=== PATIENT | female | born 1950 | race Caucasian/White ===

== ENCOUNTER 2017-10-16 18:15 | Emergency (ER) | payer MEDICARE, OTHER, SELFPAY | END 2017-10-16 20:42 | disposition home or self-care (01) | PROVIDERS: Emergency Provider Nurse Practitioner Family; Visit Provider Nurse Practitioner Family | DX: J09.X2 Influenza due to identified novel influenza A virus with other respiratory manifestations (principal); F17.210 Nicotine dependence, cigarettes, uncomplicated; I10 Essential (primary) hypertension; Z79.899 Other long term (current) drug therapy | CPT/HCPCS: 87804; 99201 ==

== ENCOUNTER 2017-10-22 20:29 | Observation (INO) | payer MEDICARE, OTHER, SELFPAY | END 2017-10-24 17:50 | disposition home or self-care (01) | PROVIDERS: Admitting Provider Emergency Medicine; Emergency Provider Emergency Medicine; Family Provider Nurse Practitioner Family; Visit Provider Family Medicine | DX: J18.9 Pneumonia, unspecified organism (principal); Z72.0 Tobacco use; E87.6 Hypokalemia | CPT/HCPCS: 36415; 71010; 80048; 80053; 82550; 82553; 83605; 84484; 85025; 86738; 87040; 87486; 87581; 87633; 87798; 93005; 93041; 94640; 94760; 96365; 96367; 96375; 99285; G0378; J0456; J1956 ==

== ENCOUNTER → 2018-04-25 08:28 | Outpatient (CLI) | payer MEDICARE, OTHER, SELFPAY ==
[2018-04-25 08:49] LABS: Blood Urea Nitrogen 17 mg/dL (7-18); Creatinine,Serum 1.09 mg/dL (0.55-1.02); Estimated Glomerular Filt Rate 50 ml/min (>60); GFR (African American) 60 ML/MIN (>60)
--- NOTE | 2018-04-25 09:04 | MR_ITS ---
MR head/brain wo/w con Ordering Physician: Laurel Cooney Patient Age: 68 years: Female HISTORY: ITS.REASON: BASILAR ARTERY ANEURYSM Weakness. Cannot walk at times. Dizzy 2 months. Patient States that had aneurysm in head, neck and abdomen : PROCEDURE. Standard Pre and postcontrast MR brain Precontrast Multiplanar FLAIR, T1, T2 weighted images along with axial diffusion/ADC imaging performed on 1.5 T. Siemens, MRI. Postcontrast imaging [id number] ProHance T1-weighted images axial & coronal plane performed COMPARISON :None relevant FINDINGS Prominent, Numerous high signal foci are seen throughout the deep white matter both periventricular and subcortical. These show no enhancement and & compatible with extensive chronic small vessel deep white matter ischemic/gliotic changes. Commonly seen in aging brain but are more extensive and pronounced than typically seen in this patient. Minimal signal central yuni likely reflecting same process.Posterior fossa otherwise with no additional findings., CP angles are clear . Cerebellum appear satisfactoryCranial cervical junction is normal. Mastoid air cells are well-developed and fairly clear with no significant findings. IACs unremarkable No abnormal areas of enhancement. No mass lesion nor mass effect. No extra-axial or subdural collections. Overall cerebral atrophy age-.. . Sella is normal. The ventricles and basal cisterns appear normal for age. This is a standard MR brain which provides only overview of the [place] & vascular structures. No MRA ordered. Today's images reveal No obvious aneurysm is seen at the [place] on the submitted images. The patient does have ectatic vessels most evident at carotid siphon and less evident at basilar artery., But No focal aneurysm these standard MR brain survey. MRA or CTA of [place] provides the best resolution and detail to evaluate these vascular elements if excluding aneurysms remains a primary desire. Left maxillary sinus, moderate mucosal thickening with what may be an air-fluid level. IMPRESSION...... Prominent, extensive chronic small vessel white matter ischemic gliotic changes throughout the cerebral hemisphere. No territorial infarct. No mass lesions Cerebral atrophy age-appropriate . Today's standard MR brain images show ectatic vessels, but no obvious aneurysm at [place].. Would recommend MRA or CTA for greater detail evaluation more optimal evaluation of of vascular elements, if continued desire to further exclude aneurysm here.
--- NOTE | 2018-04-25 10:58 | HMH.ITSHM ---
POTASSIUM CL ER 20MG CARVEDILOL 3125MG CHLORTHQLIDONE 50MG OXCARBAZEDINE 300MG AMLODIPINE BESYLATE 10MG GABAPENTIN 100MG IBUPROPEN
--- NOTE | 2018-04-25 11:16 | CI_ITS ---
Cerebrovascular Exam IMPRESSIONS 1. The bilateral vertebral arteries are patent with normal antegrade flow. 2. Study suggests 20% stenosis involving the right internal carotid artery. 3. Study suggests 20% stenosis involving the left internal carotid artery. History: Risk factors: Current tobacco use. Hypertension. Facial artery aneurysm, AAA Carotid duplex study. Complete study and Doppler flow study including spectral analysis, color and martell scale imaging. Height: Height: 165.1cm. Height: 65in. Weight: Weight: 50.8kg. Weight: 111.8lb. Body mass index: BMI: 18.6kg/m^2. Body surface area: BSA: 1.52m^2. Location: Vascular laboratory. Patient status: Outpatient. Tables: Arterial flow: + +--------+--------+ Location V sys V ed + +--------+--------+ Right CCA - proximal 40.6cm/s 12.2cm/s + +--------+--------+ Right CCA - distal 37.5cm/s 12.2cm/s + +--------+--------+ Right ECA 55.4cm/s -------- + +--------+--------+ Right ICA - proximal 42cm/s 15.3cm/s + +--------+--------+ Right ICA - mid 47.1cm/s 16.1cm/s + +--------+--------+ Right ICA - distal 82.9cm/s 31cm/s + +--------+--------+ Right vertebral 71.1cm/s -------- + +--------+--------+ Left CCA - proximal 46cm/s 14.1cm/s + +--------+--------+ Left CCA - distal 44.8cm/s 14.1cm/s + +--------+--------+ Left ECA 64cm/s -------- + +--------+--------+ Left ICA - proximal 46.7cm/s 16.9cm/s + +--------+--------+ Left ICA - mid 64.4cm/s 22.4cm/s + +--------+--------+ Left ICA - distal 57.7cm/s 22.8cm/s + +--------+--------+ Left vertebral 33.8cm/s -------- + +--------+--------+ Velocity ratios: + + + + + + Right, V sys Right, V ed Left, V sys Left, V ed + + + + + + Max ICA/dist CCA 2.21 2.54 1.44 1.62 + + + + + + (Report amended ) Electronically signed by: Blas Castellon [id number]
--- NOTE | 2018-04-25 11:49 | CT_ITS ---
CT angio abdomen CT abdominal and pelvic aorta Ordering Physician: Laurel Cooney Patient Age: 68 years: Female HISTORY: ITS.REASON: CHEST PAIN, AAA TECHNIQUE: Helical CT scanning performed abdomen and pelvis to evaluate aorta following 100 cc Isovue-370 IV contrast. No oral contrast utilized. Axial sagittal and coronal reconstructions performed on CT workstation. . Timing of contrast was performed to maximize visualization of the aorta. All CT scans at this facility used one or more dose reduction techniques , viz: automatic exposure control, ma/Kv adjustment per patient's size, (including targeted exam where dose matched to the indication; i.e. head); or iterative reconstruction technique COMPARISON :November 2016 CT abdomen/pelvis with contrast FINDINGS Lung bases no acute finding. Heart normal size. Lower thorax. Lower thoracic aortameasures up to nearly 35 mm X 30 mm on slice 4 Abdominal aorta. Upper abdominal aorta generous in caliber and become slightly more dilated and beginning at the level of the SMA just above the renal arteries. Aorta measures 3.8 x 3.2 cm diameter at this level, Just above the renal arteries.. Circumferential intraluminal thrombus and plaque. On the 2017 study this region measured 3.2 x 2.9 cm in this does show interval enlargement. Below the level the renal arteries the aorta is slightly larger as well. It measures up to 3.2 cm diameter with crescentic plaque, terminal thrombus seen to the left of the lumen. Patent lumen remains generous. Right renal arteries Paired right renal arteries remain patent with only minimal less than 15-20 % narrowing at the origin of the dominant right renal artery. However since the previous 2017 study there is been occlusion of the left renal artery. Lack of flow here with a progressively decreased size and atrophy of the left kidney particularly towards lower pole. The hypertrophied right kidney measures up to 11 cm length the left kidney previously measured nearly 7 cm length and now measures 5.8 cm length. . Early enhancing images of liver and spleen unremarkable. Pancreas. Slight generous pancreatic duct similar to previous study... Stable .. Gallbladder unremarkable. The visualized portions of bowel with no significant findings. No no focal lesion evident. . The iliac vessels show no aneurysmal dilatation. There is generous calcified plaque at the aortic bifurcation and origin iliacs calcified plaque is seen throughout the external iliac vessels visualized. We do not visualize the groin. Prominent fairly extensive calcification just beneath skin at right and left buttocks, likely reflecting injection granulomas possibly with other old skin or subcutaneous trauma/process. ----IMPRESSION--------- 1. Progression of Aortic aneurysm.. Progressive Aneurysmal dilatation Involving suprarenal & infrarenal aorta, as well as lower thoracic aorta ... Most significant progressive suprarenal abdominal aortic aneurysm interval Occlusion of the LEFT RENAL artery. Suprarenal aortic Aneurysmal dilatation,, (beginning at the SMA & to the level the renal arteries)., has enlarged up to3.8 cm diameter maximallyX 3.2 cm. ... Infrarenal Abdominal Aorta Aneurysm has also shown mild enlargement now measuring 3.2 cm diameter .... Lower thoracic aorta with progressive aneurysmal dilatation, now measuring up to near 3.5 cm X 3 cm. ... Progressive circumferential thrombus/& plaque in these areas 2. Progressively small Shrunken left kidney since 2017, with lack of perfusion to the left kidney seen today reflecting occluded left renal artery 3.. Mild dilatation of pancreatic duct stable and unchanged since prior studies Above findings warrant vascular/cardiovascular follow-up.
== END ==
PROVIDERS: Family Provider Nurse Practitioner Family; PCP Family Medicine; Visit Provider Nurse Practitioner
DX: I72.5 Aneurysm of other precerebral arteries (principal); I71.4 Abdominal aortic aneurysm, without rupture; I10 Essential (primary) hypertension; R07.9 Chest pain, unspecified; R42 Dizziness and giddiness
CPT/HCPCS: 36415; 70553; 74175; 82565; 84520; 93880; A9576; Q9967

== ENCOUNTER → 2018-05-02 06:19 | Outpatient (CLI) | payer MEDICARE, OTHER, SELFPAY ==
--- NOTE | 2018-05-02 | NM_ITS ---
History and Indications: Hypertension, tobacco use, shortness of breath and fatigue Procedure: Patient received a 0.4 mg of Lexiscan, resting heart rate was 76 beats per resting blood pressure 191/95, with Lexiscan maximum heart rate achieved was 98 bpm is less than 85% of the maximum predicted heart rate and a blood pressure was 160/90. With Lexiscan patient complained of mild shortness of breath and malaise. Electrocardiogram: Resting electrocardiogram showed sinus rhythm nonspecific ST-T changes, with Lexiscan less than 1.[address] segment depression noted from the baseline EKG. The EKG portion of the Lexiscan Myoview is nondiagnostic. Cardiac stress and resting SPECT images: Cardiac stress and rest SPECT images were obtained using technetium 99 Myoview 31.1 mCi at stress and 11.0 mCi at rest, gated SPECT further analysis of segmental wall motion and calculation of the ejection fraction also done. Cardiac stress and the suspect show uniform myocardial activity without segmental perfusion abnormality, computer derived ejection fraction is 48% with no obvious regional wall motion abnormality, right ventricle is normal size and contractility. Conclusion: 1. The EKG portion of the Lexiscan Myoview is nondiagnostic. 2. No obvious scintigraphic evidence of reversible ischemia seen, either derived ejection fraction is 48% no regional wall motion abnormality, right ventricle is normal size and contractility.
--- NOTE | 2018-05-02 09:51 | HMH.ITSHM ---
carvedilol chlothalidone gabapentin oxcarbazepine amlodipine potassium
== END ==
PROVIDERS: Family Provider Nurse Practitioner Family; PCP Family Medicine; Visit Provider Nurse Practitioner
DX: R07.9 Chest pain, unspecified (principal); I10 Essential (primary) hypertension
CPT/HCPCS: 78452; 93017; A9502; J2785

== ENCOUNTER 2018-08-01 10:00 | Outpatient (RCR) | payer MEDICARE, OTHER, SELFPAY | END 2018-08-01 10:01 | disposition home or self-care (01) | LOC: OT 10:00 | PROVIDERS: Family Provider Nurse Practitioner Family; PCP Family Medicine; Visit Provider Physical Medicine & Rehabilitation | DX: I63.8 Other cerebral infarction (principal) | CPT/HCPCS: 97110; 97112; 97140; 97166 ==

== ENCOUNTER 2018-08-05 13:00 | Outpatient (RCR) | payer MEDICARE, OTHER, SELFPAY | END 2018-08-05 13:01 | disposition home or self-care (01) | LOC: PT 13:00 | PROVIDERS: Family Provider Nurse Practitioner Family; PCP Family Medicine; Visit Provider Physical Medicine & Rehabilitation | DX: I63.9 Cerebral infarction, unspecified (principal) | CPT/HCPCS: 97110; 97112; 97116; 97163 ==

== ENCOUNTER 2018-12-04 14:00 | Outpatient (RCR) | payer MEDICARE, OTHER, SELFPAY | END 2018-12-04 14:05 | disposition home or self-care (01) | LOC: PT 14:00 | PROVIDERS: Visit Provider Physician Assistant Medical | DX: S32.000A Wedge compression fracture of unspecified lumbar vertebra, initial encounter for closed fracture (principal) | CPT/HCPCS: 97110; 97112; 97163; 97164 ==

== ENCOUNTER → 2018-12-09 11:18 | Outpatient (CLI) | payer MEDICARE, OTHER, SELFPAY ==
--- NOTE | 2018-12-09 11:29 | XR_ITS ---
XR chest 2V HISTORY: Shortness of air, weakness, current smoker ITS.REASON: WEAKNESS ORDERING PHYSICIAN: Morenita Browne MD PATIENT AGE: 68 years COMPARISON: 06/19/2018 FINDINGS: Unremarkable cardiovascular structures. Emphysema/COPD with hyperinflation. Biapical bulla are noted. Old granulomatous disease. No lobar consolidation or collapse. There is tortuosity of the descending thoracic aorta. There is moderate anterior wedging of L2 which have a similar appearance on a previous CT scan of 06/19/2018. IMPRESSION: COPD/emphysema with biapical blebs and old granulomatous disease. No acute finding
== END ==
PROVIDERS: PCP Family Medicine; Visit Provider Family Medicine
DX: R53.1 Weakness (principal)
CPT/HCPCS: 71046

== ENCOUNTER 2018-12-24 14:00 | Outpatient (RCR) | payer MEDICARE, OTHER, SELFPAY | END 2018-12-24 14:05 | disposition home or self-care (01) | LOC: OT 14:00 | PROVIDERS: Visit Provider Family Medicine | DX: I63.9 Cerebral infarction, unspecified (principal) | CPT/HCPCS: 97014; 97110; 97112; 97140; 97164; 97166; G0283 ==

== ENCOUNTER → 2019-01-12 09:26 | Outpatient (CLI) | payer MEDICARE, OTHER, SELFPAY ==
--- NOTE | 2019-01-12 | CA_ITS ---
PROCEDURE: 2-D M-mode and color Doppler study INDICATIONS FOR THE TEST: Chest pain COPD Heart Murmur Tobacco SmokingX Palpitations FatigueX Syncope Edema HypertensionXDiabetes Mellitus Rheumatic Fever SOBXDOEXObesity Hyperlipidemia Family History HD Additional History PATIENT INFORMATION HEIGHT: 66 WEIGHT:112 GENDER: Female B/P:130/70 2-D/M-MODE INTERPRETATION: 2-D MEASUREMENTS OBSERVED VALUES IN CMS Right Ventricular Dimension (RVDd) 2.1 Interventricular Septum (Thickness)(IVsd) .9 Left Ventricular Internal Dimensions(LVIDd) 4.8 Left Ventricular Posterior Wall (Thickness)(LVPWd) .9 Aortic Root 3.0 Aortic Cusp Separation 1.1 Left Atrial Dimensions (LAD) 2.6 2D 1. Left atrium is mildly enlarged, left ventricle is normal size, mild concentric left ventricular hypertrophy, visually estimated ejection fraction approximately 50%, there is moderate hypokinesis involving the inferobasal and posterobasal wall. 2. The right atrium and right ventricle are normal size and contractility. 3. The aortic valve, leaflet continue to display mobility. 4. The mitral and tricuspid valve leaflets are minimally thickened . 5. The pulmonic valve is poorly visualized. 6. No significant pericardial effusion noted. DOPPLER INTERROGATION: Doppler interrogation of the aortic, mitral and tricuspid valvular presence of mild mitral and tricuspid regurgitation, tricuspid regurgitation jet velocity is inadequate for calculation of the right ventricular systolic pressure, grade 1 diastolic dysfunction seen without tissue Doppler evidence of raised left atrial pressure. CONCLUSION: 1. Mildly enlarged left atrium, normal left ventricular size, mild concentric left ventricular hypertrophy, visually estimated ejection fraction of 50% with segmental wall motion abnormality described above, grade 1 diastolic dysfunction seen without tissue Doppler evidence of raised left atrial pressure. 2. Mild mitral and tricuspid regurgitation 3. No significant pericardial effusion noted.
--- NOTE | 2019-01-12 09:31 | US_ITS ---
US abd. aorta screening HISTORY: Follow-up of abdominal aortic aneurysm ITS.REASON: AORTIC ANEURYSN W/O RUPTURE ORDERING PHYSICIAN: Matthew Medina PATIENT AGE: 68 years Comparison: 04/25/2018 FINDINGS: Maximum AP dimension is approximately 3.3 cm in maximum transverse dimension also 3.3 cm. There is intramural thrombus noted. Proximal common iliacs are unremarkable. IMPRESSION: 3.3 cm lower abdominal aortic aneurysm with mural thrombus. The measurements are not significant change from previous CT scan of 04/25/2018.
== END ==
PROVIDERS: PCP Family Medicine; Referring Provider Internal Medicine Cardiovascular Disease; Visit Provider Internal Medicine Cardiovascular Disease
DX: R06.09 Other forms of dyspnea (principal); I71.9 Aortic aneurysm of unspecified site, without rupture
CPT/HCPCS: 76705; 93306

== ENCOUNTER 2019-02-20 14:00 | Outpatient (RCR) | payer MEDICARE, OTHER, SELFPAY | END 2019-02-20 14:05 | disposition home or self-care (01) | LOC: OT 14:00 | PROVIDERS: Visit Provider Psychiatry & Neurology Neurology | DX: I69.398 Other sequelae of cerebral infarction (principal); G90.8 Other disorders of autonomic nervous system | CPT/HCPCS: 97018; 97140; 97166 ==

== ENCOUNTER → 2019-08-18 14:14 | Outpatient (CLI) | payer MEDICARE, OTHER, SELFPAY ==
--- NOTE | 2019-08-18 14:22 | XR_ITS ---
PROCEDURE: XR LUMBAR SPINE MIN 4V CLINICAL INDICATION: BACK PAIN Low back pain COMPARISON: LS5 LUMBAR SPINE 5 VIEWS from 06/01/[address] lumbar spine wo con from 06/19/2018 FINDINGS: Minimal lumbar curvature convex left. There is diffuse soft tissue calcification along the iliac region on both sides. There is mild wedging of L3 and moderate wedging of L2. These findings were present on the previous CT scan of 06/19/2018. There is mild kyphosis at the L1-L2 junction. No obvious acute fracture or dislocation. There is an oval area of calcification along the sacrum on the right which is within the soft tissues posteriorly. IMPRESSION: 1. No acute fracture. 2. Old wedge compression changes of L2 and L3. Dictated by: Ortiz Lucero MD 08/18/2019 16:08 Electronically signed by Ortiz Lucero MD in [facility] 08/18/2019 16:08
== END ==
PROVIDERS: PCP Family Medicine; Visit Provider Family Medicine
DX: M54.9 Dorsalgia, unspecified (principal); M54.5 Low back pain
CPT/HCPCS: 72110

== ENCOUNTER → 2019-12-23 13:26 | Outpatient (CLI) | payer MEDICARE, OTHER, SELFPAY ==
--- NOTE | 2019-12-23 13:30 | CA_ITS ---
APPROVED REPORT [employer] Director: Elena Bustos RDCS Laterality: Bilateral Study Quality: Good Indications: DIZZINESS,CVA,HTN,HLP Doppler Spectral Velocity Analysis dICA (R) 56.50/15.00 cm/s dICA (L) 53.30/20.10 cm/s Guevara (R) 56.80/17.80 cm/s Guevara (L) 34.90/11.80 cm/s pICA (R) 24.10/7.60 cm/s pICA (L) 43.50/11.90 cm/s dCCA (R) 35.50/9.40 cm/s dCCA (L) 42.50/13.00 cm/s pCCA (R) 39.50/12.00 cm/s pCCA (L) 38.50/10.90 cm/s Vert (R) 62.60/12.50 cm/s Vert (L) 45.20/10.30 cm/s ICA/CCA 1.60 ICA/CCA 1.30 Findings Duplex evaluation demonstrates stenosis of the right proximal internal carotid artery <20% with PSV <140 cm/sec, EDV <100 cm/sec, and IC/CC Ratio <4.0.Duplex evaluation demonstrates stenosis of the left proximal internal carotid artery <20% with PSV <140 cm/sec, EDV <100 cm/sec, and IC/CC Ratio <4.0.Antegrade flow seen bilateral vertebral arteries. No significant change from exam of 04/25/18 Conclusion Duplex evaluation demonstrates stenosis of the right proximal internal carotid artery <20% with PSV <140 cm/sec, EDV <100 cm/sec, and IC/CC Ratio <4.0.Duplex evaluation demonstrates stenosis of the left proximal internal carotid artery <20% with PSV <140 cm/sec, EDV <100 cm/sec, and IC/CC Ratio <4.0.Antegrade flow seen bilateral vertebral arteries. No significant change from exam of 04/25/18 Electronically signed by : Skip Hinkle, 12/23/2019 19:13:44
== END ==
PROVIDERS: PCP Family Medicine; Visit Provider Family Medicine
DX: R42 Dizziness and giddiness (principal)
CPT/HCPCS: 93880

== ENCOUNTER 2020-12-01 17:25 | Observation (INO) | payer MEDICARE, OTHER, SELFPAY ==
[2020-12-01 17:25] VITALS: BP 133/88; PULSE 83; RESP 20; TEMP 37; O2SAT 96; BMI 17.6
[2020-12-01 18:07] LABS: Strep Scrn Group A (Rapid) Negative (Negative)
--- NOTE | 2020-12-01 18:34 | HMH.EDGENADL ---
ED Disposition Condition on Discharge: Fair - Critical Care Critical Care Time: No <Julio Cesar Cedeño - Last Filed: 12/01/20 20:06> Condition on Discharge: Good - Critical Care Critical Care Time: No <Skip Barney - Last Filed: 12/01/20 21:49> Clinical Impression: Sore throat, Neck stiffness Disposition: Admitted As Inpatient Referrals: Morenita Browne MD [Primary Care Provider] - Attestation: On 12/01/20, the high probability of a clinically significant, sudden or life threatening deterioration of the following system(s) required my full and direct attention, intervention and personal management. The time I documented below is in addition to time spent performing reported procedures but includes the following listed in this critical care notation. Medical Decision Making - [facility] Inquiry Pt receiving controlled substance: Yes Ascencion was queried for this patient: No Reason not queried -: Emergent pt cond-no time Risks and benefits of using a controlled substance: were not discussed with pt by me - Lab Data Result diagrams: 12/01/20 19:15 12/01/20 19:15 <Julio Cesar Cedeño - Last Filed: 12/01/20 20:06> - Lab Data Result diagrams: 12/01/20 19:15 12/01/20 19:15 <Skip Barney - Last Filed: 12/01/20 21:49> Vital Signs: 12/01/20 17:25 Temperature 98.6 F Temperature Source Oral Pulse Rate [Left Radial] 83 Respiratory Rate 20 Blood Pressure [Right Arm] 133/88 Blood Pressure Mean [Right Arm] 103 Blood Pressure Source [Right Arm] Automatic Cuff Blood Pressure Position [Right Arm] Sitting 02 Sat by Pulse Oximetry 96 Oxygen Delivery Method Room Air - Lab Data Lab Results 12/01/20 17:25: Group A Strep Rapid Negative 12/01/20 19:15: WBC 8.9, RBC 5.41 H, Hgb 16.2, Hct 48.4 H, MCV 89.5, MCH 30.0, MCHC 33.5, RDW 15.5, Plt Count 236, MPV 8.5, Neut % (Auto) 78.3, Lymph % (Auto) 12.9, Norman % (Auto) 7.0, Eos % (Auto) 1.0, Baso % (Auto) 0.8, Neut # (Auto) 7.0, Lymph # (Auto) 1.2, Norman # (Auto) 0.6, Eos # (Auto) 0.1, Baso # (Auto) 0.1 12/01/20 19:15: Sodium 133 L, Potassium 3.2 L, Chloride 96 L, Carbon Dioxide 28, Anion Gap 12.2, BUN 14, Creatinine 0.90, Estimated Creat Clear 38, Estimated GFR 62, Est GFR ( Amer) 74, Glucose 121 H, Calcium 10.1, Total Bilirubin 0.6, AST 48 H, ALT 28, Alkaline Phosphatase 111, Total Protein 9.4 H, Albumin 4.4, Globulin 5.0 H, Albumin/Globulin Ratio 0.9 L 12/01/20 19:15: Lactate 1.0 Orders (Tests/Meds): ED MEDICATIONS Generic Name Dose Route Start Last Admin Trade Name Freq PRN Reason Stop Dose Admin Clindamycin Phosphate 600 mg/ 104 mls @ 100 mls/hr 12/01/20 21:30 Sodium Chloride IV 12/01/20 22:33 ONCE ONE Protocol Discontinued Medications Generic Name Dose Route Start Last Admin Trade Name Freq PRN Reason Stop Dose Admin Dexamethasone Sodium Phosphate 10 mg 12/01/20 21:30 Dexamethasone 4mg/Ml 1ml Vial IV 12/01/20 21:31 ONCE ONE Iopamidol 75 ml 12/01/20 20:34 12/01/20 20:35 Iopamidol-370 (76%);100ml Bottle IV 12/01/20 20:35 75 ml ONCE ONE Administration Morphine Sulfate 4 mg 12/01/20 18:43 12/01/20 19:23 Morphine 4mg/Ml Syringe IV 12/01/20 18:44 4 mg ONCE ONE Administration Ondansetron HCl 4 mg 12/01/20 18:43 12/01/20 19:23 Ondansetron 4mg/2ml Vial IV 12/01/20 18:44 4 mg ONCE ONE Administration Sodium Chloride 10 ml 12/01/20 20:34 12/01/20 20:35 Sodium Chloride 0.9% 10ml Syr (Rad Only) IV 12/01/20 20:35 10 ml ONCE ONE Administration ORDERS Category Date Time Status CT soft tissue neck w con Stat Cat Scan 12/01/20 18:44 Taken CRP [C-Reactive Protein] [facility] 12/01/20 06:00 Ordered CRP [C-Reactive Protein] [facility] 12/02/20 06:00 Ordered Complete Blood Count Auto Diff [facility] 12/01/20 06:00 Ordered Complete Blood Count Auto Diff [facility] 12/02/20 06:00 Ordered Comprehensive Metabolic Panel [facility] 12/01/20 06:00 Ordered Comprehensive Metabolic Panel AM
--- NOTE | 2020-12-01 18:44 | CT_ITS ---
PROCEDURE: CT SOFT TISSUE NECK W CON CLINICAL HISTORY: sore throat, stiff neck Difficulty eating and drinking, dysphagia COMPARISON: No exams were available for comparison TECHNIQUE: Oral Contrast: None IV Contrast: None Axial images obtained with sagittal and coronal reformats. All CT scans at the facility use one or more dose reduction, viz: automated exposure control, ma/kV adjustment per patient size (including targeted exams where dose is matched to indication, i.e. head), or iterative reconstruction technique. FINDINGS: There is an air-fluid level in the left maxillary sinus. The sinuses are incompletely imaged.. No abscess. No mass. The submandibular glands have an unremarkable appearance. There is some attenuation of the parapharyngeal space on the right nonspecific. Direct visualization may provide further evaluation. The epiglottis and glottic region have an unremarkable appearance. No evidence peritonsillar abscess. Upper thoracic images demonstrates centrilobular emphysema with bullous change in left apex. There are degenerative changes in the cervical spine. There is air in the esophagus which could be due to reflux. Small amount fluid is present in the esophagus posteriorly at the level of the candida. IMPRESSION: 1. No acute finding of the neck. 2. Left maxillary sinusitis. 3. Centrilobular emphysema. 4. Small amount of air and fluid in the esophagus which could be due to reflux Dictated by: Ortiz Lucero MD 12/02/2020 06:03 Ortiz Lucero MD in [facility] 12/02/2020 06:03
[2020-12-01 19:36] LABS: Basophils # 0.1 K/mm3 (0-0.2); Basophils % 0.8 % (0.1-2.0); Eosinophils # 0.1 K/mm3 (0.0-0.4); Hematocrit 48.4 % (37.0-47.0); Hemoglobin 16.2 g/dL (12.2-16.2); Lymphocytes # 1.2 K/mm3 (0.7-4.5); Lymphocytes % 12.9 % (10-50); Mean Corpuscular HGB Conc 33.5 g/dL (31.8-35.4); Mean Corpuscular Volume 89.5 fl (81-99); Mean Platelet Volume 8.5 fl (7.4-10.4); Monocytes # 0.6 K/mm3 (0.1-1.0); Neutrophils % 78.3 % (37.0-80.0); Platelet Count 236 K/mm3 (142-424); Red Blood Count 5.41 M/mm3 (4.20-5.40); Red Cell Distribution Width 15.5 % (11.5-17.5); White Blood Count 8.9 K/mm3 (4.8-10.8)
[2020-12-01 19:37] LABS: Chloride 96 mmol/L (98-107); Potassium 3.2 mmoL/L (3.5-5.1); Sodium 133 mmol/L (136-145)
[2020-12-01 19:40] LABS: Alanine Aminotransferase 28 U/L (12-78); Albumin Level 4.4 g/dl (3.5-5.0); Albumin/Globulin Ratio 0.9 (1.1-1.8); Alkaline Phosphatase 111 U/L (38-126); Anion Gap 12.2 mEq/L (5-15); Aspartate Amino Transferase 48 U/L (14-36); Bilirubin,Total 0.6 mg/dl (0.2-1.3); Blood Urea Nitrogen 14 mg/dl (7-17); Carbon Dioxide 28 mmol/L (22.0-30.0); Creatinine Clearance Estimated 38 mL/min (50-200); Estimated Glomerular Filt Rate 62 ml/min (>60); GFR (African American) 74 ML/MIN (>60); Total Protein,Serum 9.4 g/dl (6.3-8.2)
[2020-12-01 19:41] LABS: Calcium 10.1 mg/dl (8.4-10.2); Glucose 121 mg/dl (74-100)
--- NOTE | 2020-12-01 21:25 | PC.NURSE ---
Dr Barney speaking with Dr Roach for admission.
[2020-12-01 22:31] LABS: Coronavirus 19 IgG Antibody Negative (Negative); Coronavirus 19 IgM Antibody Negative (Negative)
--- NOTE | 2020-12-01 22:47 | PC.NURSE ---
pt arrived to floor via stretcher from the ED
[2020-12-01 22:59] VITALS: BP 138/78; PULSE 86; RESP 18; TEMP 37; O2SAT 96
[2020-12-01 23:17] VITALS: BP 133/99; PULSE 92; RESP 17; TEMP 36.5; O2SAT 92; BMI 17.9
--- NOTE | 2020-12-01 23:21 | PC.NURSE ---
pt does not know her medications.
--- NOTE | 2020-12-02 03:20 | PC.NURSE ---
PT HAS RESTED WELL SINCE ARRIVAL TO FLOOR. NO COMPLAINTS OF PAIN. SHE IS A&OX4. VSS. WILL CONT. TO MONITOR.
[2020-12-02 04:00] VITALS: BP 118/76; PULSE 79; RESP 16; TEMP 36.5; O2SAT 95
[2020-12-02 05:09] VITALS: BMI 17.8
--- NOTE | 2020-12-02 07:25 | HMH.HPDC ---
General - General Admission date:: 12/01/20 Discharge date: 12/02/20 *Admission Date: 12/01/20 *Chief complaint: Sore throat and stiff neck *History of present illness: 70-year-old female presented to the emergency department yesterday evening with complaints of a stiff neck and inability to swallow solids or liquids. She also endorsed sore throat. Patient reports symptoms began the day before when the right side of her neck was stiff and then the following morning awoke in the left side of her neck was now stiff. Most of the discomfort was in the back of the neck. She had associated sore throat and noticed yesterday that she could not swallow any liquids. Throughout the day patient attempted to eat or drink without response. Ultimately she presented to the ER. In the ER patient underwent evaluation that was unrevealing. The ER physician spoke with the on-call ear nose and throat physician who suggested observation and beginning steroids and antibiotics for possible blueprint developer space infection. Patient's white blood cell count was normal. This morning the patient feels improved has improved range of motion in her neck and has been able to drink some water. She also notes improvement in her sore throat. [facility] History I have reviewed the patient's past medical history: Yes Medical History: Reports:: Hyperlipidemia, Hypertension Denies:: Diabetes Mellitus Type 1, Diabetes Mellitus Type 2 *Have you ever received a pneumonia vaccine?: No *Have you received a flu vaccine this season?: No - *Social History Smoking Status: Current every day smoker Tobacco Type: cigarettes Alcohol Intake: never *Occupational Status:: disabled Household Members: family, children *Travel in the last 8 weeks: None Family Hx:: No significant family history Review of Systems - Constitutional Denies anorexia, Denies body ache(s), Denies chills, Denies fever(s), Denies lack of energy, Denies malaise, Denies night sweats - Eyes Denies blind spots, Denies blurry vision - ENT Denies abnormal hearing, Denies change in voice - *Cardiovascular Denies chest pain, Denies chest pain at rest - *Respiratory Denies change in phlegm color, Denies chest congestion, Denies cough - *Gastrointestinal Denies abdominal pain, Denies belching, Denies bloating, Denies heartburn - *Genitourinary Reports difficulty urinating - *Musculoskeletal Denies abnormal walking, Denies joint pain - Integumentary/Breasts Denies acne, Denies hair loss, Denies bleeding lesions - *Neurologic Denies headache(s) - Psychiatric Denies abnormal sleep pattern, Denies lack of enjoyment, Denies anxiety Exam Vital signs and Labs for Last 24 Hours: Temp Pulse Resp BP Pulse Ox 97.7 F 79 16 118/76 95 12/02/20 04:00 12/02/20 04:00 12/02/20 04:00 12/02/20 04:00 12/02/20 04:00 Laboratory Results - last 24 hr 12/01/20 17:25: Group A Strep Rapid Negative 12/01/20 19:15: WBC 8.9, RBC 5.41 H, Hgb 16.2, Hct 48.4 H, MCV 89.5, MCH 30.0, MCHC 33.5, RDW 15.5, Plt Count 236, MPV 8.5, Neut % (Auto) 78.3, Lymph % (Auto) 12.9, [place] % (Auto) 7.0, Eos % (Auto) 1.0, Baso % (Auto) 0.8, Neut # (Auto) 7.0, Lymph # (Auto) 1.2, [place] # (Auto) 0.6, Eos # (Auto) 0.1, Baso # (Auto) 0.1 12/01/20 19:15: Sodium 133 L, Potassium 3.2 L, Chloride 96 L, Carbon Dioxide 28, Anion Gap 12.2, BUN 14, Creatinine 0.90, Estimated Creat Clear 38, Estimated GFR 62, Est GFR ( Amer) 74, Glucose 121 H, Calcium 10.1, Total Bilirubin 0.6, AST 48 H, ALT 28, Alkaline Phosphatase 111, Total Protein 9.4 H, Albumin 4.4, Globulin 5.0 H, Albumin/Globulin Ratio 0.9 L 12/01/20 19:15: Lactate 1.0 12/01/20 19:15: SARS-CoV-2 IgG Ab (Rapid) Negative, SARS-CoV-2 IgM Ab (Rapid) Negative I & O for Last 24 hours: Intake & Output 11/29/20 11/30/20 12/01/20 12/02/20 11:59 11:59 11:59 11:59 Intake Total 120 / 120 Balance 120 / 120 Weight 104 lb 8 oz - *Routine HEENT Exam Head: Present: normocephal
[2020-12-02 08:00] VITALS: BP 97/66; PULSE 75; RESP 16; TEMP 36.5; O2SAT 95
--- NOTE | 2020-12-02 08:07 | P.CONPHA_ITS ---
[facility] Pharmacy VTE Monitoring - Patient Demographics Admission date: 12/02/20 Report Date: 12/02/20 Time: 08:07 Allergies/Adverse Reactions: Patient Allergies No Known Allergies Allergy (Verified 05/09/18 07:28) Height: 1.63 m Weight: 47.4 kg Patient Problems: Current Active Problems Sore throat (Acute) Neck stiffness (Acute) - VTE Risk Labs: VTE Related Lab Results Hgb 16.2 g/dL (12.2-16.2) 12/01/20 19:15 Hct 48.4 % (37.0-47.0) H 12/01/20 19:15 Plt Count 236 K/mm3 (142-424) 12/01/20 19:15 BUN 14 mg/dl (7-17) 12/01/20 19:15 Creatinine 0.90 mg/dl (0.52-1.04) 12/01/20 19:15 Estimated Creat Clear 38 mL/min (50-200) 12/01/20 19:15 Was VTE Risk Assessment Performed: Yes VTE Score: 0 VTE Risk Level: Very Low Risk Clinical Trial Participant: No - Prophylaxis VTE Prophylaxis Ordered?: Yes Types of VTE Prophylaxis: TEDS Knee High
--- NOTE | 2020-12-02 11:28 | HMH.SLDYSPHA ---
Speech & Language Evaluation Speech/Language Dysphagia Evaluation Start: 12/02/20 11:12 Freq: ONCE Status: Active Protocol: Document 12/02/20 11:12 FELICIA (Rec: 12/02/20 11:28 FELICIA [id number]) Dysphagia Assess/Goals/Plan Assessment Date of Evaluation: 12/02/20 Evaluation Type Initial Certification Assessment/Problems Dysphagia Does Patient Qualify for Service No Qualify/Failure Comment Ms. Wiley showed no signs of dysphagia Recommendations PHYSICIAN CERTIFICATION: The specified therapy services are required, authorized, and reviewed every 30 days. Diet Recommendations Mechanical Soft Liquid Type Recommendations Normal/Thin SL Swallow Guidelines Standard Aspiration Prec. Dysphagia Swallow Precautions/Strategies Sitting Upright (90 deg),Small Bites and Sips,Alternate Liquids/Solids Additional Consults Recommended Physical Therapy Plan Pt/Guardian verbally ack understanding Yes of dx/prognosis/goals G -code Required No Speech & Language HPI Language Primary Language Latvian Dysphagia:Food Presentation Evaluation Food Type Mechanical Soft,Regular,Liquid ,Pudding Dysphagia Evaluation Summary Ms. Wiley was given the following consistencies: thins via straw and open cup, pudding, mechanical soft, and regular. No signs of dysphagia were noted during evaluation. FURNACE ERECTOR provided Ms. Wiley with information about TMJ and Trismus. At this time, it is recommended that Ms. Wiley be placed on soft diet with thin liquids. She should steer clear of foods that require excessive mastication to prevent pain in her neck and temporomandibular joint. Stroke Dysphagia Assessment PHYSICIAN CERTIFICATION: I certify the specified therapy services for Myriam Wiley are required, authorized, and reviewed every 30 days.
== END 2020-12-02 14:06 | disposition home or self-care (01) ==
LOC: ER 21:49 → 2ND 21:53
PROVIDERS: Emergency Medicine; Admitting Provider Family Medicine; Emergency Provider Emergency Medicine; PCP Family Medicine; Visit Provider Family Medicine
DX: M43.6 Torticollis (principal); J02.9 Acute pharyngitis, unspecified; I10 Essential (primary) hypertension; Z72.0 Tobacco use; Z79.899 Other long term (current) drug therapy
CPT/HCPCS: 70491; 80053; 83605; 85025; 86328; 87040; 87430; 92610; 99284; G0378; J2405; Q9967

== ENCOUNTER 2020-12-13 12:28 | Inpatient (IN) | payer MEDICARE, OTHER, SELFPAY ==
[2020-12-13] VITALS (21 sets, daily range): BP systolic 96–140; BP diastolic 51–83; PULSE 48–71; RESP 16–22; TEMP 36.5–37.1; O2SAT 93–99; BMI 17.6; BMI 19.5
--- NOTE | 2020-12-13 | IR_ITS ---
APPROVED REPORT Patient Location: Emergent Indirect Sales Representative: KALI Zuñiga RT (R) PROCEDURES Left heart catheterization Left ventriculogram Selective coronary angiogram Drug-eluting stent deployment to the proximal mid and distal dominant right coronary Drug-eluting stent deployment to the proximal LAD Drug-eluting stent deployment to the proximal circumflex artery INDICATION Acute ST elevation myocardial infarction, Coronary artery disease Informed consent was obtained prior to the procedure. COMPLICATIONS NONE Estimated Blood Loss: LESS THAN 10 ML TECHNIQUE One percent lidocaine used to anesthetize the right anterior aspect of the wrist. The right radial artery was accessed via the Seldinger technique. A 6 [place] sheath was placed in the right radial artery. 2.5 mg of verapamil, 800 mcg of nitroglycerin, 1mg Lidocaine and 5000 U Heparin were given through the arterial sheath. A 6 [place] Poppa catheter was used to perform left heart catheterization left ventriculogram and selective coronary angiogram. The catheter was placed into the right coronary artery and a Choice PT extra-support wire was used to push through the occlusion. A 3 mm x 27 mm balloon was used to predilate the occlusion. A 3 mm x 38 mm resolute [place] stent was placed proximally and deployed at 24 garett. An additional 3.5 x 38 mm resolute [place] stent was placed distal to this and then deployed at 20 garett. The balloon was brought back and deployed at 24 garett to post dilate the 3 mm stent. A 3.75 x 8 mm and 3.75 x 15 mm balloon were then deployed in the proximal and distal segment in order to post dilate to areas requiring post stent dilatation. PATRICIA 0 flow was present at the beginning of the procedure with PATRICIA-3 flow at the end of the procedure. Patient was having pain and spasm in the right radial artery/wrist and I felt at this time it was most appropriate to completely revascularized patient due to her small size and possibility of not being able to get back into the radial artery at another time. The Poppa catheter was placed in the left main artery and a Choice PT extra-support wire was placed in the LAD. A 3 mm x 12 mm resolute [place] stent was deployed at 24 garett in the proximal segment reducing the severe eccentric stenosis to 0%. PATRICIA-3 flow was present before and after the procedure. The wire was pulled out placed into the circumflex artery where a 2.75 x 18 mm resolute [place] stent was deployed at 22 garett reducing the stenosis to 0%. PATRICIA-3 flow was present before and after the procedure. At the end of the procedure after complete revascularization the apparatus was removed the sheath was removed and hemostasis was achieved using TR banding patient was transferred to the postop holding in stable condition. Therapeutic heparin with a therapeutic ACT was administered prior to the procedure. Brilinta 180 was administered in the emergency department. ANGIOGRAPHIC RESULTS The left main artery Normal The left anterior descending artery Has a proximal 90% stenosis followed by an additional 30 to 40% stenosis followed by mid vessel 30% stenoses very distally in the apex a collateral is sent over to the posterior descending artery The circumflex artery Is nondominant yet still large vessel with a proximal 80% stenosis followed by a 60% stenosis in a large first obtuse marginal artery The right coronary artery Is a large dominant vessel and proximally occluded. Following revascularization the vessel was a massively large vessel widely patent with excellent antegrade flow. Distal to the stent was a 30% stenosis in the distal segment of the right coronary artery the posterior descending artery was a large vessel tortuous with
--- NOTE | 2020-12-13 12:30 | HMH.EDCP ---
ED Disposition Clinical Impression: Chest pain Qualifiers: Chest pain type: unspecified Qualified Code(s): R07.9 - Chest pain, unspecified Myocardial infarction Qualifiers: Myocardial infarction type: unspecified Involved coronary artery: unspecified coronary artery Qualified Code(s): I21.9 - Acute myocardial infarction, unspecified Disposition: Admitted As Inpatient Condition on Discharge: Fair - Critical Care Critical Care Time: No Attestation: On , the high probability of a clinically significant, sudden or life threatening deterioration of the following system(s) required my full and direct attention, intervention and personal management. The time I documented below is in addition to time spent performing reported procedures but includes the following listed in this critical care notation. Medical Decision Making - Medical Records Medical records reviewed: Yes: I reviewed the patient's medical records. - [facility] Inquiry Pt receiving controlled substance: No Vital Signs: 12/13/20 12:28 Temperature 97.8 F Temperature Source Temporal Artery Scan Pulse Rate [Right] 51 L Respiratory Rate 17 Blood Pressure [Right Arm] 140/83 Blood Pressure Mean [Right Arm] 102 02 Sat by Pulse Oximetry 98 - Lab Data Lab Results 12/13/20 12:30: WBC 10.7, RBC 4.56, Hgb 13.8, Hct 42.7, MCV 93.7, MCH 30.2, MCHC 32.3, RDW 15.5, Plt Count 224, MPV 8.9, Neut % (Auto) 71.2, Lymph % (Auto) 19.6, [place] % (Auto) 7.4, Eos % (Auto) 1.1, Baso % (Auto) 0.7, Neut # (Auto) 7.7, Lymph # (Auto) 2.1, [place]vin # (Auto) 0.8, Eos # (Auto) 0.1, Baso # (Auto) 0.1 12/13/20 12:30: Sodium 138, Potassium 3.2 L, Chloride 101, Carbon Dioxide 34 H, Anion Gap 6.2, BUN 19 H, Creatinine 1.00, Estimated Creat Clear 39, Estimated GFR 55 L, Est GFR ( Amer) 66, Glucose 114 H, Calcium 10.6 H, Troponin I 28.40 H Result diagrams: 12/13/20 12:30 12/13/20 12:30 Orders (Tests/Meds): ED MEDICATIONS Generic Name Dose Route Start Last Admin Trade Name Freq PRN Reason Stop Dose Admin Nitroglycerin 0.4 mg 12/13/20 12:31 Nitroglycerin 0.4mg Sl Tablet SL 12/14/20 12:31 [id number] PRN Chest Pain Discontinued Medications Generic Name Dose Route Start Last Admin Trade Name Kaylee PRN Reason Stop Dose Admin Aspirin 324 mg 12/13/20 12:31 12/13/20 12:40 Aspirin 81mg Chewable Tablet PO 12/13/20 12:32 243 mg ONCE ONE Administration ORDERS Category Date Time Status XR chest portable Stat Exams 12/13/20 12:31 Taken Troponin I Q3H Lab 12/13/20 15:45 Ordered Troponin I Q3H Lab 12/13/20 18:45 Ordered ECG Request by /Nse Stat Y 12/13/20 12:31 Ordered - Radiology Data #1 Image(s): Chest Preliminary Findings: Normal/NAD - ECG Data Tracing #1 61 bpm, normal sinus rhythm, no ST elevation or depression, no ectopy, normal intervals. ECG initial impression date: 12/13/20 ECG initial impression time: 12:25 Normal Sinus Rhythm: Yes Tracing #2 I reviewed this ECG and interpreted as documented below: Medical Decision Narrative: 70yo F evaluated for chest pain. Patient is currently chest pain-free but endorses mild shortness of breath. Routine cardiac work-up has been initiated. I have reviewed the patient's EKG from her PCP office prior to arrival. Machine reads possible acute [place] and anterior lateral ST changes. EKG on arrival is normal sinus without signs of ischemia. Patient was treated with aspirin on arrival. Lab called with a critical 28.4 troponin level. EKGs were texted to Dr. Moore along with the patient's troponin. I personally discussed the case with Dr. Moore who plans to take the patient to the [facility] in approximately 45 minutes. He request that she be loaded with Brilinta 180 mg, heparin 100 units/kg. These results and plan were discussed with patient at bedside. She is in agreement with the plan. Case discussed with Dr. Rodas, who is agreeable to admission following the patient's hear
--- NOTE | 2020-12-13 12:31 | ECG_ITS ---
APPROVED REPORT Exam: Resting ECG HR:61 bpm ECG Measurements Heart Rate 61 AXES ME 192 P 68 QRSd 70 QRS 37 QT 430 T 29 QTc 432 Conclusion Normal sinus rhythm Normal ECG Electronically signed by : Rush Link, 12/13/2020 22:02:47
--- NOTE | 2020-12-13 12:31 | XR_ITS ---
PROCEDURE: XR CHEST PORTABLE CLINICAL HISTORY: CP Chest pain COMPARISON: DR BARBARA CHAIDEZ NECK SOFT TISSUE from 05/31/2017 CR CXR1VP XR chest portable from 05/09/2018 CR CXR1VP XR chest portable from 06/19/2018 CR CXR2V XR chest 2V from 12/09/2018 FINDINGS: The cardiomediastinal silhouette and pulmonary vascularity are within normal limits. The lungs are clear without infiltrates, suspicious nodules, or pleural effusions. Diffuse bilateral soft tissue calcification noted in the arms on both sides. IMPRESSION: 1. No acute cardiac or pulmonary findings. 2. Non-specific diffuse soft tissue calcification Dictated by: Ortiz Lucero MD 12/13/2020 14:27 Ortiz Lucero MD in [place] 12/13/2020 14:27
[2020-12-13 12:43] LABS: Basophils # 0.1 K/mm3 (0-0.2); Basophils % 0.7 % (0.1-2.0); Eosinophils # 0.1 K/mm3 (0.0-0.4); Eosinophils % 1.1 % (0.1-12.0); Hematocrit 42.7 % (37.0-47.0); Hemoglobin 13.8 g/dL (12.2-16.2); Lymphocytes # 2.1 K/mm3 (0.7-4.5); Lymphocytes % 19.6 % (10-50); Mean Corpuscular HGB Conc 32.3 g/dL (31.8-35.4); Mean Corpuscular Hemoglobin 30.2 pg (27.0-31.2); Mean Corpuscular Volume 93.7 fl (81-99); Mean Platelet Volume 8.9 fl (7.4-10.4); Monocytes # 0.8 K/mm3 (0.1-1.0); Monocytes % 7.4 % (1.7-9.3); Neutrophils # 7.7 K/mm3 (1.8-7.8); Neutrophils % 71.2 % (37.0-80.0); Platelet Count 224 K/mm3 (142-424); Red Blood Count 4.56 M/mm3 (4.20-5.40); Red Cell Distribution Width 15.5 % (11.5-17.5); White Blood Count 10.7 K/mm3 (4.8-10.8)
[2020-12-13 12:50] LABS: Chloride 101 mmol/L (98-107); Potassium 3.2 mmoL/L (3.5-5.1); Sodium 138 mmol/L (136-145)
[2020-12-13 12:53] LABS: Anion Gap 6.2 mEq/L (5-15); Blood Urea Nitrogen 19 mg/dl (7-17); Calcium 10.6 mg/dl (8.4-10.2); Carbon Dioxide 34 mmol/L (22.0-30.0); Creatinine Clearance Estimated 39 mL/min (50-200); Estimated Glomerular Filt Rate 55 ml/min (>60); GFR (African American) 66 ML/MIN (>60); Glucose 114 mg/dl (74-100)
--- NOTE | 2020-12-13 13:13 | PC.NURSE ---
speaking with Dr. Moore
--- NOTE | 2020-12-13 13:18 | PC.NURSE ---
laboratory chemical assistant staff at bedside
--- NOTE | 2020-12-13 13:27 | PC.NURSE ---
speaking with Dr. Rodas
--- NOTE | 2020-12-13 13:28 | PC.NURSE ---
Pt leaving for analytical lab analyst. notified care management of admission
--- NOTE | 2020-12-13 13:32 | PC.NURSE ---
Put in igg/igm for quick covid status, called lab and advised them pt was going to the lab[facility] and would be admitted and asked for them to go over to the lab and collect a nasal swab on the patient
[2020-12-13 13:57] LABS: NT Pro Brain Natriuretic Pep. 3910 pg/mL (0-125)
[2020-12-13 13:59] LABS: Coronavirus 19 IgG Antibody Negative (Negative); Coronavirus 19 IgM Antibody Negative (Negative)
--- NOTE | 2020-12-13 14:03 | HMH.CNCARD ---
History of Present Illness Consult date: 12/13/20 Requesting physician: Garland Bedoya Consult reason: chest pain Chief complaint: chest pain and shortness of breath Additional Medical History:: 1. STEMI (12/13/20) a. EKG revealed Acute MS with anterior lateral ST changes. b. Elevated Troponin 28.4 2. Essential Hypertension 3. Tobacco use 4. Hyperlipidemia 5. Abdominal Aortic Aneursym a. 3.3cm with mural thrombosis (01/20). History of present illness: 70 year old female presented to the ED with chest pain accompanied by increase shortness of breath. Pt had been evaluated by PCP prior to presenting to the ED, with complaints of midsternal chest pain and shortness of breath. EKG was performed at the PCP office which revealed Acute MS with anterior lateral ST changes. Pt statedd that she had been having increase nausea with no vomiting for the past few days. Upon arrival to the ED, pt stated chest pain had resolved after given Aspirin. Pt denies significant history of coronary artery disease. Pt does have history of hypertension and tobacco use. No swelling of the lower extremities noted. Pt does have history of AAA with mural thrombosis (01/20). Pt is unsure if this has been checked since then. Pt was given Brilinta and started on Heparin in the ED prior to transporting to [facility]. Initial work up was performed. Troponin 28.4 (elevated). EKG revealed acute MS. ED physician discussed with pt the risk and benefits of having LHC. Pt agreeable. slab worker notified. Pt was taken straight to [facility] house lab[facility] for possible coronary intervention. Echocardiogram ordered to assess LV function and valve status. Pending on LHC and echocardiogram results, medication and treatment recommendations may be considered. Will order Abdominal CT scan due to AAA. Thank you for letting Cardiology to participate in the care of this pt. [facility] History I have reviewed the patient's past medical history: Yes Medical History: Reports:: Hyperlipidemia, Hypertension Denies:: Diabetes Mellitus Type 1, Diabetes Mellitus Type 2 *Have you ever received a pneumonia vaccine?: No *Have you received a flu vaccine this season?: No Amputation: No - *Social History Last grade of school completed: High school graduate Smoking Status: Current every day smoker Tobacco Type: cigarettes Alcohol Intake: never *Occupational Status:: disabled Household Members: family, children *Travel in the last 8 weeks: None Family Hx:: No significant family history Meds Home Medications Medication Instructions Recorded Confirmed Type Chlorthalidone 50 mg PO DAILY 04/11/18 06/19/18 History Gabapentin [Gabapentin 100mg Cap] 100 mg PO TID 04/11/18 06/19/18 History OXcarbazepine [Trileptal] 300 mg PO BID 04/11/18 06/19/18 History Potassium Chloride [Klor-con 20 20 meq PO TID 04/11/18 06/19/18 History mEq tablet] Amlodipine Besylate [Amlodipine 10 mg PO DAILY 05/09/18 06/19/18 History 10mg Tab] carvediloL [Carvedilol 3.125mg Tab] 25 mg PO BID 05/09/18 06/19/18 History Atorvastatin Calcium [Lipitor 40mg 40 mg PO DAILY 06/19/18 06/19/18 History Tab] methylPREDNISolone [Medrol] 4 mg PO DIRECTED #21 pack 12/02/20 Rx Allergies Allergy/AdvReac Type Severity Reaction Status Date / Time No Known Allergies Allergy Verified 05/09/18 07:28 Exam Vital signs and Labs for Last 24 Hours: Temp Pulse Resp BP Pulse Ox 97.8 F 57 L 18 120/74 98 12/13/20 13:32 12/13/20 13:32 12/13/20 13:32 12/13/20 13:32 12/13/20 12:28 Laboratory Results - last 24 hr 12/13/20 12:30: WBC 10.7, RBC 4.56, Hgb 13.8, Hct 42.7, MCV 93.7, MCH 30.2, MCHC 32.3, RDW 15.5, Plt Count 224, MPV 8.9, Neut % (Auto) 71.2, Lymph % (Auto) 19.6, Scott % (Auto) 7.4, Eos % (Auto) 1.1, Baso % (Auto) 0.7, Neut # (Auto) 7.7, Lymph # (Auto) 2.1, Scott # (Auto) 0.8, Eos # (Auto) 0.1, Baso # (Auto) 0.1 12/13/20 12:30: Sodium 138, Potassium 3.2 L, Chloride 101, Carbon Dioxide 34 H, Anion Gap 6.2, BUN
--- NOTE | 2020-12-13 14:47 | CA_ITS ---
APPROVED REPORT EXAM: Comprehensive 2D, Doppler, and color-flow Echocardiogram Volunteer Recruiter: Sarah Watt, RT(R) Ht: 5 ft 5 in Wt: 106lbs BSA: 1.51 BP: 132/80 mmHg Indications: Nonstemi, abn EKG, smoker, HTN, hyperlipidemia, hx CVA, acute OR, AAA, EF check for lifevest M-Mode Dimensions RVDd 1.72 cm (0.9-2.6) LVDd 4.33 cm (3.5-5.7) LVDs 3.72 cm (3.5-5.7) IVSd 1.18 cm (0.6-1.1) PWd 0.75 cm (0.6-1.1) EF (Teich) 30.20% FS 14.10% EDV (Teich) 84.40 mL ESV (Teich) 58.90 mL Conclusion 1. Limited echocardiogram was obtained, visually estimated ejection fraction is 50%, with mild hypokinesis involving the distal septum and apical wall. 2. No significant pericardial effusion noted. Electronically signed by : Richie Webb, 12/13/2020 20:30:25
[2020-12-13 15:15] LABS: Triiodothryronine (T3) Uptake 34 % (23.5-40.5)
[2020-12-13 15:16] LABS: Free Thyroxine Index 2.8 ug/dL (5.93-13.13); T4 (Thyroxine) 8.2 ug/dl (5.53-11.0)
[2020-12-13 15:29] LABS: Thyroid Stimulating Hormone 5.82 uIU/mL (0.465-4.68)
[2020-12-13 15:31] LABS: CATHL Activated Clotting Time > 400 SEC (74-125)
[2020-12-13 15:32] LABS: CATHL Activated Clotting Time 305 SEC (74-125)
--- NOTE | 2020-12-13 15:57 | HMH.HP ---
*Admission Date: 12/13/20 *Chief complaint: Weakness, chest pain *History of present illness: 70-year-old female with history of prior stroke as well as hypertension, nicotine dependence presented to the office today with complaints of 2 to 3 days of malaise with nausea, diarrhea and centralized chest discomfort. Patient looked quite weak in the office and EKG was concerning for an acute RI. Patient was sent directly to the emergency department for more rapid evaluation. In the ER patient's EKG had normalized but a troponin was 28. Cardiology service was consulted immediately. Patient was diagnosed with STEMI and taken to the [facility]. Patient has undergone left heart catheterization with results as follows: ANGIOGRAPHIC RESULTS The left main artery Normal The left anterior descending artery Has a proximal 90% stenosis followed by an additional 30 to 40% stenosis followed by mid vessel 30% stenoses very distally in the apex a collateral is sent over to the posterior descending artery The circumflex artery Is nondominant yet still large vessel with a proximal 80% stenosis followed by a 60% stenosis in a large first obtuse marginal artery The right coronary artery Is a large dominant vessel and proximally occluded. Following revascularization the vessel was a massively large vessel widely patent with excellent antegrade flow. Distal to the stent was a 30% stenosis in the distal segment of the right coronary artery the posterior descending artery was a large vessel tortuous with excellent antegrade flow. The posterior lateral branch had a mid vessel 50 to 60% stenosis The MOTA ventriculogram reveals Reduced at 35 to 40% The left ventricular end-diastolic pressure 30 mmHg IMPRESSION Acute myocardial infarction involving the proximal dominant right coronary artery representing an ST elevation myocardial infarction equivalent which patient was many hours into the myocardial infarction with persistent unstable pain Successful revascularization of the proximal mid to distal dominant record artery 100% occlusion reduced to 0% with 2 contiguous drug-eluting stents Successful revascularization of the proximal LAD severe disease reduced to 0% with 1 drug-eluting stent Successful revascularization of the proximal large nondominant circumflex artery severe disease reduced to 0% with 1 drug-eluting stent Persistent moderate stenosis in the proximal and mid LAD Persistent moderate stenosis in the large first obtuse marginal artery Persistent moderate stenosis in a moderate-sized mid posterior lateral branch Reduced ejection fraction Elevated LVEDP PLAN 1. Brilinta 90 twice daily plus aspirin 81 mg daily 2. OLIVIA inhibitors once hemodynamically stable and able to tolerate 3. Slowly add carvedilol only after OLIVIA inhibitors are tolerated 4. LDL less than 55 to be achieved with high intensity statin 5. Echocardiogram prior to discharge to determine if ejection fraction is 35% or less in which patient would require LifeVest prior to discharge home 6. Avoidance of tobacco products 7. Risk factor modification 8. Supportive care in the hospital for at least the next 48 hours while under telemetry monitoring Patient is being admitted for further telemetry monitoring and observation. [facility] History I have reviewed the patient's past medical history: Yes Medical History: Reports:: Aneurysm (Basilar artery), Cerebrovascular Accident (May 2018 left basal ganglia infarct and left frontal lobe infarct), Hyperlipidemia, Hypertension Denies:: Diabetes Mellitus Type 1, Diabetes Mellitus Type 2 *Have you ever received a pneumonia vaccine?: No *Have you received a flu vaccine this season?: No Other Medical History: Reports: Other (Scleroderma, trigeminal neuralgia, lumbar compression fracture) Amputation: No - *Social History Last grade of school completed: High school graduate Smoking Status: Current every day smoker Tobacco Type: cigarettes Al
--- NOTE | 2020-12-13 16:40 | PC.NURSE ---
Pt arrived to the floor at this time.
--- NOTE | 2020-12-13 16:57 | PC.NURSE ---
PT STATES THAT SHE IS NOT ABLE TO ANSWER QUESTIONS ABOUT HER HOME MEDICATIONS OR HEALTH HISTORY BU THTAT HER DAUGHTER WILL BE ABLE TO HELP WITH ADMISSION QUESTIONS WHEN SHE ARRIVES.
--- NOTE | 2020-12-13 20:57 | PC.NURSE ---
SHE IS AOX4, ABLE TO MAKE NEEDS KNOWN TO STAFF, RADIAL BAND REMAINED IN PLACE, VITAL SIGNS HAVE REMAINED STABLE. USED THE BED URENA FOR URINATION X1. HER DAUGHTER HAS BEEN UPDATE VIA TELEPHONE AT REGULAR INTERVALS, RADIAL BAND WAS TITRATED BUT NEEDED TO HAVE AIR REPLACED AFTER SOME MODERATE BLEEDING NOTED, SHE HAS BEEN SINUS SHAMIKA TO NORMAL SINUS ON TELE, SHE DENIES ANY N/V/D OR CHEST PAIN, SHE DID EAT A SMALL AMOUNT OF SUPPER AND DRANK SOME ICE WATER AND TOLERATED WELL.
--- NOTE | 2020-12-13 21:50 | PC.NURSE ---
air decreased to 2ml in balloon at right radial access, small amount of oozing noted, balloon air increased again to 15ml. no hematoma noted, vss will continue to decrease air as tolerated
[2020-12-14] VITALS (7 sets, daily range): BP systolic 82–112; BP diastolic 53–68; PULSE 60–86; RESP 16–20; TEMP 36.4–36.8; O2SAT 92–100; BMI 18.6; BMI 19.5
--- NOTE | 2020-12-14 01:00 | PC.NURSE ---
ALL AIR REMOVED FROM BALLOON TO RIGHT RADIAL ACCESS AT THIS TIME, NO BLEEDING NOTED, NO HEMATOMA NOTED, 2X2 AND TEGADERM APPLIED WILL CONTINUE TO MONITOR AT THIS TIME
--- NOTE | 2020-12-14 02:00 | PC.NURSE ---
DRESSING TO RIGHT WRIST REMAINS CLEAN DRY AND INTACT, NO COMPLAINTS OF PAIN, NO HEMATOMA NOTED, WILL CONTINUE TO MONITOR AT THIS TIME
--- NOTE | 2020-12-14 05:00 | XR_ITS ---
PROCEDURE: XR CHEST PORTABLE CLINICAL HISTORY: s/p heart cath Chest pain COMPARISON: CR CXR1VP XR chest portable from 06/19/2018 CR CXR2V XR chest 2V from 12/09/2018 CR XR CHEST PORTABLE from 12/13/2020 FINDINGS: Unremarkable heart size. There is tortuosity of the descending thoracic aorta. Coronary artery stent is now noted on the right. COPD. Left apical bullous change. No lobar consolidation or collapse. Diffuse soft tissue calcification noted in the upper extremities. IMPRESSION: Interval stent placement along the region of the RCA with COPD Dictated by: Ortiz Lucero MD 12/14/2020 07:31 Ortiz Lucero MD in OV 12/14/2020 07:31
--- NOTE | 2020-12-14 05:13 | PC.NURSE ---
radiology at bedside completing chest xray at this time
--- NOTE | 2020-12-14 05:13 | PC.NURSE ---
pt has been awake most of shift, pt is alert and oriented and able to make needs known, heart remains regular, lungs clear, vss, 2x2 and tegaderm remains clean dry and intact, pt has had good urine output using bedpan states Im to weak to walk no episodes of nausea, no episodes of chest pain no needs at this time
[2020-12-14 06:52] LABS: Basophils # 0.1 K/mm3 (0-0.2); Basophils % 0.6 % (0.1-2.0); Eosinophils # 0.1 K/mm3 (0.0-0.4); Hematocrit 37.3 % (37.0-47.0); Lymphocytes # 1.7 K/mm3 (0.7-4.5); Lymphocytes % 20.6 % (10-50); Mean Corpuscular HGB Conc 32.3 g/dL (31.8-35.4); Mean Corpuscular Hemoglobin 29.5 pg (27.0-31.2); Mean Corpuscular Volume 91.3 fl (81-99); Mean Platelet Volume 9.1 fl (7.4-10.4); Monocytes # 0.7 K/mm3 (0.1-1.0); Monocytes % 7.8 % (1.7-9.3); Neutrophils # 5.8 K/mm3 (1.8-7.8); Platelet Count 180 K/mm3 (142-424); Red Blood Count 4.08 M/mm3 (4.20-5.40); Red Cell Distribution Width 15.6 % (11.5-17.5); White Blood Count 8.3 K/mm3 (4.8-10.8)
[2020-12-14 06:57] LABS: Chloride 102 mmol/L (98-107)
[2020-12-14 07:00] LABS: Blood Urea Nitrogen 18 mg/dl (7-17); Carbon Dioxide 30 mmol/L (22.0-30.0); Creatinine Clearance Estimated 44 mL/min (50-200); Estimated Glomerular Filt Rate 71 ml/min (>60); GFR (African American) 85 ML/MIN (>60); Phosphorous 3.6 mg/dl (2.5-4.5)
[2020-12-14 07:01] LABS: Glucose 87 mg/dl (74-100); Hemoglobin 12.1 g/dL (12.2-16.2); Magnesium 1.4 mg/dl (1.6-2.3)
[2020-12-14 07:16] LABS: Potassium 2.7 mmoL/L (3.5-5.1)
[2020-12-14 07:20] LABS: Anion Gap 5.7 mEq/L (5-15); Sodium 135 mmol/L (136-145)
[2020-12-14 07:22] LABS: Calcium 9.4 mg/dl (8.4-10.2)
--- NOTE | 2020-12-14 07:29 | HMH.ACPN2 ---
Internal Medicine - PN: Rachele *Date: 12/14/20 *Time: 07:29 Interval history: Patient had no chest pain overnight. She denies dyspnea this morning. Exam Vital signs and Labs for Last 24 Hours: Temp Pulse Resp BP Pulse Ox 98.0 F 62 18 94/60 L 92 L 12/14/20 04:00 12/14/20 04:00 12/14/20 04:00 12/14/20 04:00 12/14/20 04:00 Laboratory Results - last 24 hr 12/13/20 12:30: WBC 10.7, RBC 4.56, Hgb 13.8, Hct 42.7, MCV 93.7, MCH 30.2, MCHC 32.3, RDW 15.5, Plt Count 224, MPV 8.9, Neut % (Auto) 71.2, Lymph % (Auto) 19.6, Ceiba % (Auto) 7.4, Eos % (Auto) 1.1, Baso % (Auto) 0.7, Neut # (Auto) 7.7, Lymph # (Auto) 2.1, Ceiba # (Auto) 0.8, Eos # (Auto) 0.1, Baso # (Auto) 0.1 12/13/20 12:30: Sodium 138, Potassium 3.2 L, Chloride 101, Carbon Dioxide 34 H, Anion Gap 6.2, BUN 19 H, Creatinine 1.00, Estimated Creat Clear 39, Estimated GFR 55 L, Est GFR ( Amer) 66, Glucose 114 H, Calcium 10.6 H, Troponin I 28.40 H 12/13/20 12:30: NT-Pro-B Natriuret Pep 3910 H 12/13/20 12:30: SARS-CoV-2 IgG Ab (Rapid) Negative, SARS-CoV-2 IgM Ab (Rapid) Negative 12/13/20 12:30: TSH 5.82 H, Free T4 Index 2.8 L, Thyroxine (T4) 8.2, T3 Uptake 34 12/13/20 14:58: Activated Clotting Time 305 H* 12/13/20 15:58: Activated Clotting Time > 400 H* D 12/14/20 05:40: WBC 8.3, RBC 4.08 L, Hgb 12.1 L D, Hct 37.3, MCV 91.3, MCH 29.5, MCHC 32.3, RDW 15.6, Plt Count 180, MPV 9.1, Neut % (Auto) 70.0, Lymph % (Auto) 20.6, Ceiba % (Auto) 7.8, Eos % (Auto) 1.0, Baso % (Auto) 0.6, Neut # (Auto) 5.8, Lymph # (Auto) 1.7, Ceiba # (Auto) 0.7, Eos # (Auto) 0.1, Baso # (Auto) 0.1 12/14/20 05:40: Sodium 135 L, Potassium 2.7 L*, Chloride 102, Carbon Dioxide 30, Anion Gap 5.7, BUN 18 H, Creatinine 0.80, Estimated Creat Clear 44, Estimated GFR 71, Est GFR ( Amer) 85 D, Glucose 87 D, Calcium 9.4 D, Phosphorus 3.6, Magnesium 1.4 L I & O for Last 24 hours: Intake & Output 12/11/20 12/12/20 12/13/20 12/14/20 11:59 11:59 11:59 11:59 Intake Total 0 / 0 Balance 0 / 0 Weight 121 lb 14.65 oz Microbiology Reports for the Last 24 Hours: Microbiology 12/13/20 13:35 Nasopharyngeal Coronavirus COVID-19 PCR - Final - Constitutional no acute distress - *Routine Respiratory Exam Present: CTA bilaterally, distant breath sounds - *Routine Cardiovascular Exam Present: RRR - *Routine Abdominal Exam Present: soft, normoactive bowel sounds. Absent: tenderness - *Routine Extremities Exam Absent: edema Assessment and Plan (1) Myocardial infarction Status: Acute Qualifiers: Myocardial infarction type: ST elevation myocardial infarction Involved coronary artery: right coronary artery Qualified Code(s): I21.11 - ST elevation (STEMI) myocardial infarction involving right coronary artery Category: Medical Code(s): I21.9 - Acute myocardial infarction, unspecified (2) Chest pain Status: Acute Qualifiers: Chest pain type: unspecified Qualified Code(s): R07.9 - Chest pain, unspecified Category: Medical Code(s): R07.9 - Chest pain, unspecified (3) Hypertension Status: Chronic Qualifiers: Hypertension type: essential hypertension Qualified Code(s): I10 - Essential (primary) hypertension Category: Medical Code(s): I10 - Essential (primary) hypertension (4) Abdominal aortic aneurysm (AAA) Status: Chronic Qualifiers: Presence of rupture: without rupture Qualified Code(s): I71.4 - Abdominal aortic aneurysm, without rupture Category: Medical Code(s): I71.4 - Abdominal aortic aneurysm, without rupture (5) History of stroke Status: Chronic Category: Medical Code(s): Z86.73 - Personal history of transient ischemic attack (TIA), and cerebral infarction without residual deficits (6) Protein calorie malnutrition Status: Chronic Qualifiers: Protein-calorie malnutrition severity: mild Qualified Code(s): E44.1 - Mild protein-calorie malnutrition Category: Medical Code(s): E46 - Unsp
[2020-12-14 07:33] LABS: INR 1.11 (0.9-1.1); Prothrombin Time 12.2 seconds (9.4-11.8)
--- NOTE | 2020-12-14 08:39 | HMH.PHAVTE ---
[facility] Pharmacy VTE Monitoring - Patient Demographics Admission date: 12/14/20 Report Date: 12/14/20 Time: 08:39 Allergies/Adverse Reactions: Patient Allergies No Known Allergies Allergy (Verified 05/09/18 07:28) Height: 1.68 m Weight: 55.3 kg Patient Problems: Current Active Problems Chest pain (Acute) Hypertension (Chronic) Abdominal aortic aneurysm (AAA) (Chronic) History of CVA (cerebrovascular accident) (Chronic) Scleroderma (Chronic) History of tobacco use disorder (Acute) Myocardial infarction (Acute) History of stroke (Chronic) Protein calorie malnutrition (Chronic) Basilar artery aneurysm (Chronic) Cigarette smoker (Acute) - VTE Risk Labs: VTE Related Lab Results Hgb 12.1 g/dL (12.2-16.2) L D 12/14/20 05:40 Hct 37.3 % (37.0-47.0) 12/14/20 05:40 Plt Count 180 K/mm3 (142-424) 12/14/20 05:40 PT 12.2 seconds (9.4-11.8) H 12/14/20 05:40 INR 1.11 (0.9-1.1) H 12/14/20 05:40 BUN 18 mg/dl (7-17) H 12/14/20 05:40 Creatinine 0.80 mg/dl (0.52-1.04) 12/14/20 05:40 Estimated Creat Clear 44 mL/min (50-200) 12/14/20 05:40 Was VTE Risk Assessment Performed: Yes VTE Score: 6 VTE Risk Level: Moderate Risk Clinical Trial Participant: No - Prophylaxis VTE Prophylaxis Ordered?: Yes Types of VTE Prophylaxis: TEDS Knee High
--- NOTE | 2020-12-14 08:53 | HMH.PNCARD ---
Subjective Date: 12/14/20 Time: 08:00 Principal diagnosis: STEMI Interval history: 70-year-old female presented to [facility] yesterday with ST elevation myocardial infarction.. Patient did undergo a left heart catheterization, which revealed severe disease of the LAD, large first obtuse marginal artery and moderate-sized mid posterior lateral branch. EF was noted as reduced. Limited echo was performed which EF was noted as 50% with mild hypokinesis involving the distal Spectam and apical wall. Patient is resting quietly in her bed. Patient stated she is just not had any sleep. Patient denies chest pain, tightness or pressure. Patient denies shortness of breath. No swelling noted of the lower extremities. Patient is states she is very tired. Right wrist noted with dressing dry and intact. This was the cath site. No swelling noted at the cath site. Patient denies palpitations or dizziness. Patient does remain hypotensive. Lisinopril 5 mg twice daily was started yesterday after heart catheterization. PCP placed parameters for blood pressure and with holding the lisinopril. Unable to start beta-jorge at this time due to hypotension. laborer shaft sinking reveals sinus rhythm with ST depression. Heart rate noted in the 60s. Patient is to remain on Brilinta 90 twice daily along with aspirin 81 mg daily due to recent stenting. Chest x-ray revealed interval stent placement along the region of the RCA with COPD LHC: IMPRESSION Acute myocardial infarction involving the proximal dominant right coronary artery representing an ST elevation myocardial infarction equivalent which patient was many hours into the myocardial infarction with persistent unstable pain Successful revascularization of the proximal mid to distal dominant record artery 100% occlusion reduced to 0% with 2 contiguous drug-eluting stents Successful revascularization of the proximal LAD severe disease reduced to 0% with 1 drug-eluting stent Successful revascularization of the proximal large nondominant circumflex artery severe disease reduced to 0% with 1 drug-eluting stent Persistent moderate stenosis in the proximal and mid LAD Persistent moderate stenosis in the large first obtuse marginal artery Persistent moderate stenosis in a moderate-sized mid posterior lateral branch Reduced ejection fraction Elevated LVEDP PLAN 1. Brilinta 90 twice daily plus aspirin 81 mg daily 2. OLIVIA inhibitors once hemodynamically stable and able to tolerate 3. Slowly add carvedilol only after OLIVIA inhibitors are tolerated 4. LDL less than 55 to be achieved with high intensity statin 5. Echocardiogram prior to discharge to determine if ejection fraction is 35% or less in which patient would require LifeVest prior to discharge home 6. Avoidance of tobacco products 7. Risk factor modification 8. Supportive care in the hospital for at least the next 48 hours while under telemetry monitoring Echo: Conclusion 1. Limited echocardiogram was obtained, visually estimated ejection fraction is 50%, with mild hypokinesis involving the distal septum and apical wall. 2. No significant pericardial effusion noted. Discussed plan of care with Dr. Moore. Continue to monitor patient and her hemodynamic status. Please notify cardiology if there becomes a change in status. No strenuous activity or heavy lifting for at least 2 weeks. Patient is to continue Brilinta 90 mg twice daily along with aspirin 81 mg daily. Once patient is able to tolerate the lisinopril, would like to add carvedilol. Thank you for allowing cardiology to participate in the care of this patient. Exam Vital signs and Labs for Last 24 Hours: Temp Pulse Resp BP Pulse Ox 98.3 F 80 18 100/58 L 100 12/14/20 08:00 12/14/20 08:00 12/14/20 08:00 12/14/20 08:00 12/14/20 08:00 Laboratory Results - last 24 hr 12/13/20 12:30: WBC 10.7, RBC 4.56, Hgb 13.8, Hct 42.7, MCV 93.7, MCH 30
--- NOTE | 2020-12-14 10:49 | HMH.PHAINT ---
home medication reconciliation list completed using list from home pharmacy and cardology notes
[2020-12-14 11:01] LABS: Chloride 103 mmol/L (98-107); Sodium 135 mmol/L (136-145)
[2020-12-14 11:04] LABS: Anion Gap 6.5 mEq/L (5-15); Blood Urea Nitrogen 18 mg/dl (7-17); Carbon Dioxide 28 mmol/L (22.0-30.0); Creatinine Clearance Estimated 44 mL/min (50-200); Estimated Glomerular Filt Rate 62 ml/min (>60); GFR (African American) 74 ML/MIN (>60)
[2020-12-14 11:05] LABS: Calcium 9.2 mg/dl (8.4-10.2); Glucose 94 mg/dl (74-100)
[2020-12-14 11:06] LABS: Potassium 2.5 mmoL/L (3.5-5.1)
--- NOTE | 2020-12-14 11:27 | HMH.PHAINT ---
Addendum entered and electronically signed by Consuelo Hadley PharmD 12/14/20 12:05: LISINOPRIL ORDER DISCONTINUED, CHANGED TO VALSARTAN 20MG AT BEDTIME Original Note: SPOKE WITH STEFFANY PRADO APRN AND DR. ZUÑIGA ABOUT POSSIBLE LISINOPRIL ALLERGY. PATIENT AND DAUGHTER INDICATED THEY THOUGHT PATIENT HAD HAD AN ALLERGIC REACTION TO LISINOPRIL IN THE PAST WITH TONGUE SWELLING. PATIENT'S DAUGHTER SAID IT WAS SEVERAL YEARS AGO. CALLED [facility] ABOUT ALLERGY. THEY HAD NO ALLERGIES LISTED. DISCUSSED WITH DR. ZUÑIGA. PATIENT RECEIVED PRESCRIPTION FOR LISINOPRIL IN JUL 2016 AND MEDICATION WAS CHANGED BY THE NEXT VISIT IN NOVEMBER 2016. PATIENT CURRENTLY TAKING VALSARTAN 20 MG DAILYP IF SBP >140. CALLED CARDIOLOGY OFFICE AND SPOKE WITH STEFFANY. SHE IS DISCUSSING WITH DR. PORTER ABOUT SWITCHING FROM LISINOPRIL.
--- NOTE | 2020-12-14 14:57 | SW/DCPLANNER ---
WENT IN TO SEE PATIENT REGARDING HER DISCHARGE PLANNING AND DAUGHTER WAS AT BEDSIDE. PHYSICAL THERAPIST WAS ALSO IN THE ROOM GETTING READY TO DO HER EVAL.. I ASKED PATIENT WHAT HER PLANS ARE BECAUSE SHE WOULD PROBABLY BE DISCHARGING IN THE AM PENDING MD HAS OTHER PLANS.. SHE AND DAUGHTER STATED SHE WOULD BE RETURNING HOME. MS GUAJARDO STATED SHE HAS SOMEONE THAT WILL BE STAYING WITH HER.... SHE APPEARED TO DO WELL WITH HER EVALUATION IF ANY RECOMMENDATIONS ARE FOR HOME CARE THIS WILL BE SET UP IF PATIENT WILL ALLOW.. PLANS ARE TO D/C IN THE AM...
--- NOTE | 2020-12-14 15:44 | HMH.PTEV ---
Physical Therapy Evaluation Rehab PT IP Evaluation Start: 12/14/20 14:28 Freq: ONCE Status: Active Protocol: Document 12/14/20 15:34 PHORPEDRO (Rec: 12/14/20 15:43 PHORNE [id number]) Subjective/History History History 70 yowf adm to [facility] after MD with 3 stents placed via heart cath.. She reports she lives with multiple family members and has a ramp to enter the home. She uses a can for ambulation primarily, but has a walker and BSC at home. Subjective Subjective Pt reports no c/o pain, but some fatigue with exertion and she did not sleep at all last night. Rehab PT IP Eval Objective Appearance Patient Behavior Appropriate Patient Orientation Person,Place,Time Difficulty following instructions none Speech Pattern Clear Ambulation Patient Able to Ambulate Yes Ambulation Observation IP General Gait Pattern Observation Wide Based Gait Ambulation Distance (feet) 20 Ambulation Assistive Device Straight Cane Ambulation Ability Supervision/Stand by Balance Ability to Arise Able, uses arms to help Sitting Balance Steady, safe Standing Balance Steady, wide stance Dynamic Sitting Balance Ability Good Dynamic Standing Balance Ability Fair Transfers Bed Transfer Ability Supervision/Stand by Chair Transfer Ability Supervision/Stand by Sit to Stand Bed Transfer Ability Supervision/Stand by Sit to Stand Chair Transfer Ability Supervision/Stand by ROM All Extremities PT ROM Status WFL MMT All Extremities PT MMT WFL Rehab PT IP prob,goals,plan Problems Date of Evaluation: 12/14/20 Discharge Plan PT Discharge Plan Pt is appropriate to return home once medically stable. Recommend home health therapy. G -code Required No Eval Complexity Eval Charge Codes 52739 - Moderate Complexity PHYSICIAN CERTIFICATION: I certify the specified therapy services for Myriam Wiley are required, authorized, and reviewed every 30 days.
--- NOTE | 2020-12-14 17:21 | PC.NURSE ---
PT HAS DONE WELL TODAY. PT HAS AMBULATED TO CHAIR WITH TWO ASSIST, MAINLY BECAUSE OF IV POLE. PT DID EXPERIENCE SOME SOB, PLACED O2 ON PT FOR COMFORT, IT DID HELP. PT AND DAUGHTER EDUCATED ON ADVERSE EFFECTS OF BRILINTA. OF SOB. NO NEW ORDERS. VSS. WILL CONT. TO MONITOR.
--- NOTE | 2020-12-14 20:44 | PC.NURSE ---
Confirmed password with pt that it is 48. Pt gave permission for this RN to give password to her Daughter Gisell Wright. Daughter wanting to know if home meds Gabapentin and Oxcarbazipine have been restarted. Let her now the Gabapentin has not been restarted but the Oxacrbazipine is ordered.Pt takes Gabapentin 100mg PO BID. Pt's daughter stated: she was very concerned and upset this medicine has not been restarted. I have had this problem with your hospital before and several people have assured me this med was restarted. I want to speak to someone about this now. This RN assured pts daughter that I would contact the on-call MD (Nikolay) regarding this medicine, and let him know her concerns and wishes. s/w Dr. Link and new order received for Gabapentin 100mg PO BID to start now. Of note, this medicine is confirmed on her home med list.
[2020-12-15] VITALS (8 sets, daily range): BP systolic 93–100; BP diastolic 45–58; PULSE 60–87; RESP 16–18; TEMP 36.4–36.8; O2SAT 93–99; BMI 18.0
--- NOTE | 2020-12-15 06:07 | ECG_ITS ---
APPROVED REPORT Exam: Resting ECG HR:81 bpm ECG Measurements Heart Rate 81 AXES HI 196 P 62 QRSd 78 QRS 35 QT 414 T -56 QTc 480 Conclusion Normal sinus rhythm T wave abnormality, consider inferior ischemia Prolonged QT Abnormal ECG Electronically signed by : Rush Link, 12/16/2020 06:39:27
--- NOTE | 2020-12-15 06:21 | PC.NURSE ---
Pt is A&Ox4 and has rested well during the night. Lungs CTA. ABD is soft, non-tender, and active bowel sounds. No edema noted. Cath site to right wrist has dressing that is C/D/I. Pt educated on use of arm/hand restrictions. NSR with inverted T wave on tele. Pt did c/o chest pain, which was relived with morphine and rest. The 1st instance pt ambulated to the BR and the 2nd was upon waking this am. New order for Protonix 40mg IVP and CBC/CMP now. Pt c/o on NC at 2LPM d/t occasional SOA. Pt and family educated on Brilinta. SBP has been in the 90s t/o most of the shift.
[2020-12-15 07:20] LABS: Basophils % 0.5 % (0.1-2.0); Eosinophils # 0.1 K/mm3 (0.0-0.4); Eosinophils % 1.2 % (0.1-12.0); Hematocrit 34.9 % (37.0-47.0); Hemoglobin 11.1 g/dL (12.2-16.2); Lymphocytes # 1.1 K/mm3 (0.7-4.5); Lymphocytes % 13.6 % (10-50); Mean Corpuscular HGB Conc 31.8 g/dL (31.8-35.4); Mean Corpuscular Hemoglobin 30.2 pg (27.0-31.2); Mean Corpuscular Volume 94.8 fl (81-99); Mean Platelet Volume 8.8 fl (7.4-10.4); Monocytes # 0.7 K/mm3 (0.1-1.0); Monocytes % 8.2 % (1.7-9.3); Neutrophils # 6.3 K/mm3 (1.8-7.8); Neutrophils % 76.5 % (37.0-80.0); Platelet Count 158 K/mm3 (142-424); Red Blood Count 3.68 M/mm3 (4.20-5.40); Red Cell Distribution Width 15.9 % (11.5-17.5); White Blood Count 8.2 K/mm3 (4.8-10.8)
[2020-12-15 07:23] LABS: Chloride 111 mmol/L (98-107); Potassium 3.6 mmoL/L (3.5-5.1); Sodium 137 mmol/L (136-145)
[2020-12-15 07:25] LABS: Blood Urea Nitrogen 21 mg/dl (7-17); Creatinine Clearance Estimated 41 mL/min (50-200); Estimated Glomerular Filt Rate 55 ml/min (>60); GFR (African American) 66 ML/MIN (>60)
[2020-12-15 07:26] LABS: Alanine Aminotransferase 22 U/L (12-78); Albumin Level 2.9 g/dl (3.5-5.0); Albumin/Globulin Ratio 0.9 (1.1-1.8); Alkaline Phosphatase 58 U/L (38-126); Anion Gap 4.6 mEq/L (5-15); Aspartate Amino Transferase 103 U/L (14-36); Bilirubin,Total 0.7 mg/dl (0.2-1.3); Calcium 8.8 mg/dl (8.4-10.2); Carbon Dioxide 25 mmol/L (22.0-30.0); Globulin 3.3 g/dL (1.3-3.2); Glucose 90 mg/dl (74-100); Total Protein,Serum 6.2 g/dl (6.3-8.2)
--- NOTE | 2020-12-15 08:39 | HMH.ACPN2 ---
Internal Medicine - PN: Subj *Date: 12/15/20 *Time: 08:39 Interval history: Patient at present has no complaints but early this morning complained of chest discomfort upon ambulating to the bathroom. Patient was given a small dose of morphine and IV Protonix. She reports her chest pain had actually begun to resolve prior to receiving any medication but now she is pain-free. Patient also complained of shortness of breath throughout the day yesterday that is been attributed to Brilinta. Exam Vital signs and Labs for Last 24 Hours: Temp Pulse Resp BP Pulse Ox 97.8 F 87 18 97/56 L 97 12/15/20 04:00 12/15/20 04:00 12/15/20 04:00 12/15/20 04:00 12/15/20 04:00 Laboratory Results - last 24 hr 12/14/20 09:05: Sodium 135 L, Potassium 2.5 L*, Chloride 103, Carbon Dioxide 28, Anion Gap 6.5, BUN 18 H, Creatinine 0.90, Estimated Creat Clear 44, Estimated GFR 62, Est GFR ( Amer) 74, Glucose 94, Calcium 9.2 12/15/20 06:51: WBC 8.2, RBC 3.68 L, Hgb 11.1 L, Hct 34.9 L, MCV 94.8, MCH 30.2, MCHC 31.8, RDW 15.9, Plt Count 158, MPV 8.8, Neut % (Auto) 76.5, Lymph % (Auto) 13.6, [place] % (Auto) 8.2, Eos % (Auto) 1.2, Baso % (Auto) 0.5, Neut # (Auto) 6.3, Lymph # (Auto) 1.1, [place] # (Auto) 0.7, Eos # (Auto) 0.1, Baso # (Auto) 0.0 12/15/20 06:51: Sodium 137, Potassium 3.6 D, Chloride 111 H, Carbon Dioxide 25, Anion Gap 4.6 L, BUN 21 H, Creatinine 1.00, Estimated Creat Clear 41, Estimated GFR 55 L, Est GFR ( Amer) 66, Glucose 90, Calcium 8.8, Total Bilirubin 0.7, AST 103 H, ALT 22, Alkaline Phosphatase 58, Total Protein 6.2 L D, Albumin 2.9 L, Globulin 3.3 H, Albumin/Globulin Ratio 0.9 L I & O for Last 24 hours: Intake & Output 12/12/20 12/13/20 12/14/20 12/15/20 11:59 11:59 11:59 11:59 Intake Total 240 / 240 850 / 850 Balance 240 / 240 850 / 850 Weight 121 lb 4.068 oz 112 lb - Constitutional no acute distress - *Routine Respiratory Exam Present: CTA bilaterally - *Routine Cardiovascular Exam Present: RRR Assessment and Plan (1) Myocardial infarction Status: Acute Qualifiers: Myocardial infarction type: ST elevation myocardial infarction Involved coronary artery: right coronary artery Qualified Code(s): I21.11 - ST elevation (STEMI) myocardial infarction involving right coronary artery Category: Medical Code(s): I21.9 - Acute myocardial infarction, unspecified (2) Chest pain Status: Acute Qualifiers: Chest pain type: unspecified Qualified Code(s): R07.9 - Chest pain, unspecified Category: Medical Code(s): R07.9 - Chest pain, unspecified (3) Hypertension Status: Chronic Qualifiers: Hypertension type: essential hypertension Qualified Code(s): I10 - Essential (primary) hypertension Category: Medical Code(s): I10 - Essential (primary) hypertension (4) Abdominal aortic aneurysm (AAA) Status: Chronic Qualifiers: Presence of rupture: without rupture Qualified Code(s): I71.4 - Abdominal aortic aneurysm, without rupture Category: Medical Code(s): I71.4 - Abdominal aortic aneurysm, without rupture (5) History of stroke Status: Chronic Category: Medical Code(s): Z86.73 - Personal history of transient ischemic attack (TIA), and cerebral infarction without residual deficits (6) Protein calorie malnutrition Status: Chronic Qualifiers: Protein-calorie malnutrition severity: mild Qualified Code(s): E44.1 - Mild protein-calorie malnutrition Category: Medical Code(s): E46 - Unspecified protein-calorie malnutrition (7) Basilar artery aneurysm Status: Chronic Category: Medical Code(s): I72.5 - Aneurysm of other precerebral arteries (8) History of CVA (cerebrovascular accident) Status: Chronic Category: Medical Code(s): Z86.73 - Personal history of transient ischemic attack (TIA), and cerebral infarction without residual deficits (9) History of tobacco use disorder Status: Acute Category: Medical Code(s):
--- NOTE | 2020-12-15 12:51 | HMH.PNCARD ---
Subjective Date: 12/15/20 Time: 12:30 Principal diagnosis: STEMI Interval history: This is a 68-year-old white female who was admitted to the [facility] with an ST elevation myocardial infarction. She underwent left cardiac catheterization multivessel stenting to the right coronary artery, LAD and circumflex arteries. The patient did tolerate the procedure well remains on Brilinta and aspirin for dual antiplatelet therapy. The patient states that she has been having shortness of breath with the Brilinta. Her daughter is concerned about the shortness of breath because at times it can be severe and she is having to use the oxygen because she is so short of breath. The patient's daughter states she is mostly scared but she is really nervous about taking her home with the amount of shortness of breath that she is having with her Brilinta. She also had some chest pain through the night and this morning after eating. She was given morphine and IV Protonix and her symptoms had resolved. She denies any fever, chills, nausea, vomiting, diarrhea, PND or orthopnea. She denies any lower extremity edema. The patient was started on irbesartan yesterday in place of valsartan and she has tolerated this well. Her blood pressure is still too low she will try beta-jorge at this time. Exam Vital signs and Labs for Last 24 Hours: Temp Pulse Resp BP Pulse Ox 98.2 F 77 18 100/58 L 99 12/15/20 08:00 12/15/20 12:00 12/15/20 08:00 12/15/20 08:00 12/15/20 08:00 Laboratory Results - last 24 hr 12/15/20 06:51: WBC 8.2, RBC 3.68 L, Hgb 11.1 L, Hct 34.9 L, MCV 94.8, MCH 30.2, MCHC 31.8, RDW 15.9, Plt Count 158, MPV 8.8, Neut % (Auto) 76.5, Lymph % (Auto) 13.6, [place] % (Auto) 8.2, Eos % (Auto) 1.2, Baso % (Auto) 0.5, Neut # (Auto) 6.3, Lymph # (Auto) 1.1, [place] # (Auto) 0.7, Eos # (Auto) 0.1, Baso # (Auto) 0.0 12/15/20 06:51: Sodium 137, Potassium 3.6 D, Chloride 111 H, Carbon Dioxide 25, Anion Gap 4.6 L, BUN 21 H, Creatinine 1.00, Estimated Creat Clear 41, Estimated GFR 55 L, Est GFR ( Amer) 66, Glucose 90, Calcium 8.8, Total Bilirubin 0.7, AST 103 H, ALT 22, Alkaline Phosphatase 58, Total Protein 6.2 L D, Albumin 2.9 L, Globulin 3.3 H, Albumin/Globulin Ratio 0.9 L I & O for Last 24 hours: Intake & Output 12/12/20 12/13/20 12/14/20 12/15/20 23:59 23:59 23:59 23:59 Intake Total 0 / 0 840 / 1090 250 / 250 Balance 0 / 0 840 / 1090 250 / 250 Weight 121 lb 8 oz 121 lb 4.068 oz 112 lb - Constitutional no acute distress, average body habitus - *Routine HEENT Exam Head: Present: normocephalic, atraumatic Eye: Present: EOMI, PERRL ENT: Present: mucous membranes moist - *Routine Neck Exam Present: supple, full ROM, normal carotid upstroke. Absent: JVD, carotid bruit, lymphadenopathy - *Routine Respiratory Exam Present: CTA bilaterally - *Routine Cardiovascular Exam Present: RRR, Normal S1, Normal S2. Absent: murmur - *Routine Abdominal Exam Present: soft, normoactive bowel sounds. Absent: tenderness, distended - *Routine Extremities Exam Present: full ROM, pulses intact, normal capillary refill. Absent: cyanosis, clubbing, edema - *Routine Skin Exam Present: intact, warm. Absent: erythema, rash - *Routine Neurological Exam Present: alert, oriented X3, CN II-XII intact. Absent: sensory deficit, motor deficit Progress Note: A&P (1) Angina pectoris Status: Acute (2) Stented coronary artery Status: Acute (3) Shortness of breath Status: Acute (4) CAD (coronary artery disease) Status: Acute (5) Keith syndrome Status: Acute (6) Myocardial infarction Status: Acute (7) Hypertension Status: Chronic (8) Abdominal aortic aneurysm (AAA) Status: Chronic (9) History of stroke Status: Chronic (10) Protein calorie malnutrition Status: Chronic (11) Basilar artery aneurysm Status: Chronic (12) History of CVA (cerebrovascular accident) Status: [facility] Coordinator
--- NOTE | 2020-12-15 14:43 | US_ITS ---
PROCEDURE: US ABD. AORTA SCREENING CLINICAL INDICATION: AAA Follow-up aortic aneurysm COMPARISON: CT SPLUMBWO CT lumbar spine wo con from 06/19/2018 US AAA US abd. aorta screening from 01/12/2019 FINDINGS: Abdominal aortic aneurysm is present fusiform in nature in the mid to upper abdominal aorta measuring up to 3.4 cm AP and 3 cm transverse previously 3 x 3 cm. Common iliacs are unremarkable. IMPRESSION: Mild fusiform dilatation of the abdominal aorta at 3.4 x 3.3 cm slightly larger compared to the previous exam Dictated by: Ortiz Lucero MD 12/15/2020 11:17 Ortiz Lucero MD in [place] 12/15/2020 11:17
--- NOTE | 2020-12-15 18:10 | PC.NURSE ---
Addendum entered by Zully Morrow RN 12/15/20 18:16: PT HAS BEEN NSR WITH INVERTED T WAVE ON TELE. Original Note: PT HAS HAD CP/EPIGASTRIC OFF AND ON TODAY. MEDICATED WITH MORPHINE THIS AM, BP DROPPED LOWER THAN HER NORMAL, MD AWARE. GI COCKTAIL ORDERED FOR NEXT C/O CP IF NEEDED. THIS AFTERNOON PT RECEIVED COCKTAIL FOR THE EPIGASTRIC/CP. PT DAUGHTER AND PT BOTH TEARFUL, PT STATING I DONT WANT TO REASSURED PT AND DAUGHTER. DAUGHTER ASKED ABOUT FURTHER ACTION FOR FUTURE COMPLAINTS. MD ZUÑIGA STATED THE PAIN WILL PASS WITH TIME AND TO TRY TO HOLD OFF ON THE MORPHINE D/T LOWERING BP. REASSESSMENT ON PAIN AND PT IS PAIN FREE. PT AND DAUGHTER CONTENT WITH MEDICATION AND CARE AT THIS TIME.
[2020-12-16] VITALS: PULSE 80
[2020-12-16 03:56] VITALS: BP 82/40; PULSE 70; RESP 18; TEMP 36.9; O2SAT 98
--- NOTE | 2020-12-16 05:20 | PC.NURSE ---
pt slept well first half of shift. had difficulty waking patient to take evening meds. pt is now more alert. pt was found at 0200 in bathroom after having an episode of diarrhea. pt was bathed and bed changed. assisted back to bed. bed alarm was set. pt reported abdominal pain and nausea and prn meds given per jan with relief. no further issues at this time. iv's patent. 2LNC in use. telemetry reads NSR with inverted T waves. blood pressure remains hypotensive but asymptomatic. call light in reach. will continue to monitor
[2020-12-16 05:58] VITALS: BMI 17.4
--- NOTE | 2020-12-16 07:00 | HMH.ACPN2 ---
Internal Medicine - PN: Subj *Date: 12/16/20 *Time: 07:00 Interval history: Patient has no complaints this morning. Nursing staff found the patient in the bathroom overnight having had diarrhea and bowel incontinence. Patient reports no abdominal pain or chest pain this morning. Exam Vital signs and Labs for Last 24 Hours: Temp Pulse Resp BP Pulse Ox 98.4 F 70 18 82/40 L 98 12/16/20 03:56 12/16/20 03:56 12/16/20 03:56 12/16/20 03:56 12/16/20 03:56 Laboratory Results - last 24 hr 12/15/20 06:51: WBC 8.2, RBC 3.68 L, Hgb 11.1 L, Hct 34.9 L, MCV 94.8, MCH 30.2, MCHC 31.8, RDW 15.9, Plt Count 158, MPV 8.8, Neut % (Auto) 76.5, Lymph % (Auto) 13.6, [place] % (Auto) 8.2, Eos % (Auto) 1.2, Baso % (Auto) 0.5, Neut # (Auto) 6.3, Lymph # (Auto) 1.1, [place] # (Auto) 0.7, Eos # (Auto) 0.1, Baso # (Auto) 0.0 12/15/20 06:51: Sodium 137, Potassium 3.6 D, Chloride 111 H, Carbon Dioxide 25, Anion Gap 4.6 L, BUN 21 H, Creatinine 1.00, Estimated Creat Clear 41, Estimated GFR 55 L, Est GFR ( Amer) 66, Glucose 90, Calcium 8.8, Total Bilirubin 0.7, AST 103 H, ALT 22, Alkaline Phosphatase 58, Total Protein 6.2 L D, Albumin 2.9 L, Globulin 3.3 H, Albumin/Globulin Ratio 0.9 L I & O for Last 24 hours: Intake & Output 12/13/20 12/14/20 12/15/20 12/16/20 11:59 11:59 11:59 11:59 Intake Total 240 / 240 850 / 850 600 / 600 Balance 240 / 240 850 / 850 600 / 600 Weight 121 lb 4.068 oz 112 lb 108 lb 7 oz - Constitutional no acute distress - *Routine Respiratory Exam Present: CTA bilaterally - *Routine Cardiovascular Exam Present: RRR - *Routine Abdominal Exam Present: soft, normoactive bowel sounds. Absent: tenderness - *Routine Extremities Exam Absent: edema Assessment and Plan (1) Angina pectoris Status: Acute Category: Medical Code(s): I20.9 - Angina pectoris, unspecified (2) Stented coronary artery Status: Acute Category: Surgical Code(s): Z95.5 - Presence of coronary angioplasty implant and graft (3) Shortness of breath Status: Acute Category: Medical Code(s): R06.02 - Shortness of breath (4) CAD (coronary artery disease) Status: Acute Category: Medical Code(s): I25.10 - Atherosclerotic heart disease of [place] coronary artery without angina pectoris (5) Keith syndrome Status: Acute Category: Medical Code(s): I24.1 - Keith's syndrome (6) Myocardial infarction Status: Acute Qualifiers: Myocardial infarction type: ST elevation myocardial infarction Involved coronary artery: right coronary artery Qualified Code(s): I21.11 - ST elevation (STEMI) myocardial infarction involving right coronary artery Category: Medical Code(s): I21.9 - Acute myocardial infarction, unspecified (7) Hypertension Status: Chronic Qualifiers: Hypertension type: essential hypertension Qualified Code(s): I10 - Essential (primary) hypertension Category: Medical Code(s): I10 - Essential (primary) hypertension (8) Abdominal aortic aneurysm (AAA) Status: Chronic Qualifiers: Presence of rupture: without rupture Qualified Code(s): I71.4 - Abdominal aortic aneurysm, without rupture Category: Medical Code(s): I71.4 - Abdominal aortic aneurysm, without rupture (9) History of stroke Status: Chronic Category: Medical Code(s): Z86.73 - Personal history of transient ischemic attack (TIA), and cerebral infarction without residual deficits (10) Protein calorie malnutrition Status: Chronic Qualifiers: Protein-calorie malnutrition severity: mild Qualified Code(s): E44.1 - Mild protein-calorie malnutrition Category: Medical Code(s): E46 - Unspecified protein-calorie malnutrition (11) Basilar artery aneurysm Status: Chronic Category: Medical Code(s): I72.5 - Aneurysm of other precerebral arteries (12) History of CVA (cerebrovascular accident) Status: Chronic Category: Medical Code(s): Z86.73 - Personal history of transie
--- NOTE | 2020-12-16 07:08 | HMH.DCSUM ---
General - General Admission date:: 12/13/20 Discharge date: 12/16/20 HPI HPI: 70-year-old female with history of prior stroke as well as hypertension, nicotine dependence presented to the office today with complaints of 2 to 3 days of malaise with nausea, diarrhea and centralized chest discomfort. Patient looked quite weak in the office and EKG was concerning for an acute NC. Patient was sent directly to the emergency department for more rapid evaluation. In the ER patient's EKG had normalized but a troponin was 28. Cardiology service was consulted immediately. Patient was diagnosed with STEMI and taken to the [facility]. Patient has undergone left heart catheterization with results as follows: ANGIOGRAPHIC RESULTS The left main artery Normal The left anterior descending artery Has a proximal 90% stenosis followed by an additional 30 to 40% stenosis followed by mid vessel 30% stenoses very distally in the apex a collateral is sent over to the posterior descending artery The circumflex artery Is nondominant yet still large vessel with a proximal 80% stenosis followed by a 60% stenosis in a large first obtuse marginal artery The right coronary artery Is a large dominant vessel and proximally occluded. Following revascularization the vessel was a massively large vessel widely patent with excellent antegrade flow. Distal to the stent was a 30% stenosis in the distal segment of the right coronary artery the posterior descending artery was a large vessel tortuous with excellent antegrade flow. The posterior lateral branch had a mid vessel 50 to 60% stenosis The MOTA ventriculogram reveals Reduced at 35 to 40% The left ventricular end-diastolic pressure 30 mmHg IMPRESSION Acute myocardial infarction involving the proximal dominant right coronary artery representing an ST elevation myocardial infarction equivalent which patient was many hours into the myocardial infarction with persistent unstable pain Successful revascularization of the proximal mid to distal dominant record artery 100% occlusion reduced to 0% with 2 contiguous drug-eluting stents Successful revascularization of the proximal LAD severe disease reduced to 0% with 1 drug-eluting stent Successful revascularization of the proximal large nondominant circumflex artery severe disease reduced to 0% with 1 drug-eluting stent Persistent moderate stenosis in the proximal and mid LAD Persistent moderate stenosis in the large first obtuse marginal artery Persistent moderate stenosis in a moderate-sized mid posterior lateral branch Reduced ejection fraction Elevated LVEDP PLAN 1. Brilinta 90 twice daily plus aspirin 81 mg daily 2. OLIVIA inhibitors once hemodynamically stable and able to tolerate 3. Slowly add carvedilol only after OLIVIA inhibitors are tolerated 4. LDL less than 55 to be achieved with high intensity statin 5. Echocardiogram prior to discharge to determine if ejection fraction is 35% or less in which patient would require LifeVest prior to discharge home 6. Avoidance of tobacco products 7. Risk factor modification 8. Supportive care in the hospital for at least the next 48 hours while under telemetry monitoring Patient is being admitted for further telemetry monitoring and observation. Hospital Course Hospital Course: In the emergency department patient was identified as having an acute NC and was taken immediately to the [facility]. Patient underwent left heart catheterization with findings and intervention as follows: ANGIOGRAPHIC RESULTS The left main artery Normal The left anterior descending artery Has a proximal 90% stenosis followed by an additional 30 to 40% stenosis followed by mid vessel 30% stenoses very distally in the apex a collateral is sent over to the posterior descending artery The circumflex artery Is nondominant yet still large vessel with a proximal 80% stenosis followed by a 60% stenosis in a large first obtuse
[2020-12-16 07:43] LABS: Cholesterol 125 mg/dl (140-200); HDL Cholesterol 42 mg/dl (40-60); Triglycerides 57 mg/dl (30-150); VLDL Cholesterol 11 mg/dL (0-40)
[2020-12-16 07:54] LABS: Direct LDL Cholesterol 54.09 mg/dL (100-129)
--- NOTE | 2020-12-16 07:59 | HMH.PNCARD ---
Subjective Date: 12/16/20 Time: 08:00 Principal diagnosis: STEMI Interval history: 70-year-old female presented to [facility] with acute ST myocardial infarction. Patient did undergo left heart catheterization immediately upon arrival. Successful stenting was noted to the proximal LAD, proximal large nondominant circumflex artery and large first obtuse marginal artery. Patient had been placed on Brilinta and baby aspirin. Patient complained of increased shortness of breath yesterday, so therefore Brilinta was switched to Plavix 75 mg once a day. Patient states her shortness of breath has resolved. She is noted to be on 2 L of O2 by nasal cannula for comfort. Patient denies chest pain, tightness or pressure. Patient states she is just very restless and unable to sleep. Patient did say around 2:00 this a.m. she was at the bathroom when she started having diarrhea. Patient states she has had 2 episodes of diarrhea. Patient had complained of abdominal pain with nausea. Patient denies abdominal pain or nausea at this time. library monitor reveals normal sinus rhythm with inverted T waves. Patient remains hypotensive but asymptomatic. Patient is on a low dose ARB. Patient stated at one time she had been on an OLIVIA inhibitor, and her tongue swelled. Unable to start beta-blockers at this time due to patient being hypotensive. Patient denies dizziness or palpitations. No swelling noted of the lower extremities. PCP has written discharge orders. Patient states she is very leery about going home. Pt states will talk to her daughter when she comes in regarding those concerns. Patient stated she has seen Dr. Govea (Business Planner) in the past, and is uncertain at this time whether she will follow-up with the cardiology group here at the hospital or if she will return back to see Dr. Govea. Abdominal CT was performed due to history of AAA. AAA is noted and is slightly larger than previous scan (2019) Would like to try patient on a low-dose water pill due to elevated LVEDP but due to her hypertension not able to do that at this time. Instructed patient to notify PCP or cardiology if she starts to develop swelling or increased shortness of breath. Patient verbalized understanding. LHC;IMPRESSION Acute myocardial infarction involving the proximal dominant right coronary artery representing an ST elevation myocardial infarction equivalent which patient was many hours into the myocardial infarction with persistent unstable pain Successful revascularization of the proximal mid to distal dominant record artery 100% occlusion reduced to 0% with 2 contiguous drug-eluting stents Successful revascularization of the proximal LAD severe disease reduced to 0% with 1 drug-eluting stent Successful revascularization of the proximal large nondominant circumflex artery severe disease reduced to 0% with 1 drug-eluting stent Persistent moderate stenosis in the proximal and mid LAD Persistent moderate stenosis in the large first obtuse marginal artery Persistent moderate stenosis in a moderate-sized mid posterior lateral branch Reduced ejection fraction Elevated LVEDP Thank you for allowing cardiology to participate in the care of this patient. Exam Vital signs and Labs for Last 24 Hours: Temp Pulse Resp BP Pulse Ox 98.4 F 70 18 82/40 L 98 12/16/20 03:56 12/16/20 03:56 12/16/20 03:56 12/16/20 03:56 12/16/20 03:56 Laboratory Results - last 24 hr 12/16/20 06:44: Triglycerides 57, Cholesterol 125 L, LDL Cholesterol Direct 54.09 L, VLDL Cholesterol 11, HDL Cholesterol 42, Cholesterol/HDL Ratio 3.0 I & O for Last 24 hours: Intake & Output 12/13/20 12/14/20 12/15/20 12/16/20 23:59 23:59 23:59 23:59 Intake Total 0 / 0 840 / 1090 850 / 850 Balance 0 / 0 840 / 1090 850 / 850 Weight 121 lb 8 oz 121 lb 4.068 oz 112 lb 108 lb 7 oz - Constitutional no acute distress, thin, cooperative - *Routine ALEENA
[2020-12-16 08:00] VITALS: BP 70/42; PULSE 70; PULSE 77; RESP 18; TEMP 36.7; O2SAT 99
--- NOTE | 2020-12-16 08:22 | HMH.PHACLD ---
Myriam Wiley has received discharge medication counseling on the following medications: PATIENT IS BEING DISCHARGED WITH PRESCRIPTIONS FOR PLAVIX 75 MG DAILY, ASPIRIN ER 81 MG DAILY, AND VALSARTAN 20 MG DAILY. PATIENT HAS ALREADY BEEN TAKING ATORVASTATIN 40 MG HS. MD STOPPING CHLORTHALIDONE 25 MG DAILY, CARVEDILOL 25 MG BID, AND AMLODIPINE 10 MG DAILY DUE TO PATIENT HR AND BEING HYPOTENSIVE.
--- NOTE | 2020-12-16 09:24 | PC.NURSE ---
NOTIFIED DR ZUÑIGA ABOUT BLOOD PRESSURE 70/42 MANUALLY. NO NEW ORDERS. HE STATED PT WAS GOOD TO GO HOME LONG SHE CAN AMBULATE AND PT WAS ABLE TO AMBULATE TO RESTROOM W STANDBY ASSIST.
--- NOTE | 2020-12-16 09:33 | DIET.NUTRFU ---
Pt and son at bedside provided with diet edu for malnutrition/high energy/protein diet and heart health. Son encouraged to reach out post dc with questions/concerns.
== END 2020-12-16 11:22 | disposition home or self-care (01) | DRG 247 ==
LOC: ER 13:28 → CATHLAB 13:30 → 2ND 15:21
PROVIDERS: Internal Medicine; Internal Medicine Adolescent Medicine; Nurse Practitioner Family; Urology; Admitting Provider Family Medicine; Emergency Provider Family Medicine; PCP Family Medicine; Visit Provider Family Medicine
PROC: 027236Z Dilation of Coronary Artery, Three Arteries with Three Drug-eluting Intraluminal Devices, Percutaneous Approach (ICD-10-PCS; principal; 2020-12-13 13:45)
DX: I21.11 ST elevation (STEMI) myocardial infarction involving right coronary artery (principal); E44.1 Mild protein-calorie malnutrition; Z68.1 Body mass index [BMI] 19.9 or less, adult; I24.1 Dressler's syndrome; I10 Essential (primary) hypertension; I71.4 Abdominal aortic aneurysm, without rupture; I72.5 Aneurysm of other precerebral arteries; Z72.0 Tobacco use; I25.118 Atherosclerotic heart disease of native coronary artery with other forms of angina pectoris; M34.9 Systemic sclerosis, unspecified; Z79.899 Other long term (current) drug therapy; Z88.8 Allergy status to other drugs, medicaments and biological substances
CPT/HCPCS: 36415; 71045; 76705; 80048; 80053; 80061; 83735; 83880; 84100; 84436; 84443; 84479; 84484; 85025; 85347; 85610; 86328; 92928; 92941; 93005; 93306; 93308; 93458; 97162; 99152; 99153; 99284; C1725; C1769; C1876; C9600; C9606; J1644; J2405; Q9967; U0003

== ENCOUNTER → 2020-12-26 14:05 | Outpatient (CLI) | payer MEDICARE, OTHER, SELFPAY ==
[2020-12-26 14:40] LABS: Basophils % 0.6 % (0.1-2.0); Eosinophils # 0.2 K/mm3 (0.0-0.4); Eosinophils % 2.8 % (0.1-12.0); Hematocrit 38.7 % (37.0-47.0); Hemoglobin 12.2 g/dL (12.2-16.2); Lymphocytes # 1.7 K/mm3 (0.7-4.5); Lymphocytes % 25.8 % (10-50); Mean Corpuscular HGB Conc 31.4 g/dL (31.8-35.4); Mean Corpuscular Hemoglobin 29.4 pg (27.0-31.2); Mean Corpuscular Volume 93.5 fl (81-99); Mean Platelet Volume 8.2 fl (7.4-10.4); Monocytes # 0.4 K/mm3 (0.1-1.0); Monocytes % 6.2 % (1.7-9.3); Neutrophils # 4.3 K/mm3 (1.8-7.8); Neutrophils % 64.7 % (37.0-80.0); Platelet Count 366 K/mm3 (142-424); Red Blood Count 4.14 M/mm3 (4.20-5.40); Red Cell Distribution Width 15.6 % (11.5-17.5); White Blood Count 6.6 K/mm3 (4.8-10.8)
[2020-12-26 14:53] LABS: Chloride 105 mmol/L (98-107); Potassium 4.1 mmoL/L (3.5-5.1); Sodium 139 mmol/L (136-145)
[2020-12-26 14:56] LABS: Anion Gap 11.1 mEq/L (5-15); Blood Urea Nitrogen 18 mg/dl (7-17); Carbon Dioxide 27 mmol/L (22.0-30.0); Estimated Glomerular Filt Rate 55 ml/min (>60); GFR (African American) 66 ML/MIN (>60)
[2020-12-26 14:57] LABS: Calcium 9.6 mg/dl (8.4-10.2); Glucose 103 mg/dl (74-100)
[2020-12-26 15:28] LABS: Thyroid Stimulating Hormone 4.52 uIU/mL (0.465-4.68)
== END ==
PROVIDERS: Family Medicine; Visit Provider Urology
DX: I10 Essential (primary) hypertension (principal); I25.10 Atherosclerotic heart disease of native coronary artery without angina pectoris; I71.4 Abdominal aortic aneurysm, without rupture; Z95.5 Presence of coronary angioplasty implant and graft; Z79.899 Other long term (current) drug therapy
CPT/HCPCS: 36415; 80048; 84439; 84443; 85025

== ENCOUNTER 2021-01-06 13:35 | Outpatient (RCR) | payer MEDICARE, OTHER, SELFPAY | END 2021-05-12 10:59 | disposition home or self-care (01) | LOC: PT 13:35 | PROVIDERS: Visit Provider Urology | DX: I25.10 Atherosclerotic heart disease of native coronary artery without angina pectoris (principal); Z95.5 Presence of coronary angioplasty implant and graft | CPT/HCPCS: 93798 ==

== ENCOUNTER → 2021-01-31 08:29 | Outpatient (CLI) | payer MEDICARE, OTHER, SELFPAY ==
--- NOTE | 2021-01-31 | CA_ITS ---
APPROVED REPORT Script Manager: SAURABH Study Quality: Technically Limited, Due to AAA. Risk Factors Hypertension Renal Artery Doppler Origin (R) 102.4/ cm/sec Mid (R) 124.2/ cm/sec Distal (R) 130.0/ cm/sec Renal Aorta Ratio (R) 0.00 Segmental A. (R) / cm/sec RI: 0.59 Segmental A. Sup (R) 48.0/19.0 cm/sec Segmental A. Mid (R) 31.0/13.0 cm/sec Segmental A. Inf (R) 43.0/18.0 cm/sec Origin (L) 130.5/ cm/sec Mid (L) 146.4/ cm/sec Distal (L) 125.1/ cm/sec Renal Aorta Ratio (L) 0.00 Segmental A. (L) / cm/sec RI: 0.00 Segmental A. Sup (L) 0.0/0.0 cm/sec Segmental A. Mid (L) 0.0/0.0 cm/sec Segmental A. Inf (L) 0.0/0.0 cm/sec Renal Measurements Kidney Size (R) 10.2x4.2 cm Kidney Size (L) 7.5x3.3 cm Findings Abnormal study An attempt was made to evaluate the abdominal aorta, the right and left renal arteries and kidneys, utilizing duplex ultrasonography and color flow doppler. This was a technically difficult and therefore limited exam due to the presence of bowel gas and the Abominal aortic aneurysm. Based on the renal/aortic ratio there is no evidence of significant stenosis in the right renal artery. Left kidney markedly smaller than right with a brighter echo apperance as well as a cystic structure. No adequte segmental nor arrcuate doppler was attainable in the left kidney. Conclusion An attempt was made to evaluate the abdominal aorta, the right and left renal arteries and kidneys, utilizing duplex ultrasonography and color flow doppler. This was a technically difficult and therefore limited exam due to the presence of bowel gas and the Abominal aortic aneurysm. Based on the renal/aortic ratio there is no evidence of significant stenosis in the right renal artery. Left kidney markedly smaller than right with a brighter echo apperance as well as a cystic structure. No adequte segmental nor arrcuate doppler was attainable in the left kidney. If clinically indicated, CT/MR angiogram should be considered. Electronically signed by : Su Walsh, 02/01/2021 17:17:14
== END ==
PROVIDERS: PCP Family Medicine; Visit Provider Physician Assistant
DX: I25.10 Atherosclerotic heart disease of native coronary artery without angina pectoris (principal); I10 Essential (primary) hypertension; Z95.5 Presence of coronary angioplasty implant and graft
CPT/HCPCS: 93976

== ENCOUNTER → 2021-05-09 13:25 | Outpatient (CLI) | payer MEDICARE, OTHER, SELFPAY ==
[2021-05-09 14:43] LABS: Blood Urea Nitrogen 16 mg/dl (7-17); Estimated Glomerular Filt Rate 44 ml/min (>60); GFR (African American) 53 ML/MIN (>60)
== END ==
PROVIDERS: Visit Provider Nurse Practitioner Family
DX: I10 Essential (primary) hypertension (principal); I25.10 Atherosclerotic heart disease of native coronary artery without angina pectoris; I71.4 Abdominal aortic aneurysm, without rupture; Z95.5 Presence of coronary angioplasty implant and graft
CPT/HCPCS: 36415; 82565; 84520

== ENCOUNTER → 2021-05-11 09:09 | Outpatient (CLI) | payer MEDICARE, OTHER, SELFPAY ==
--- NOTE | 2021-05-11 09:10 | CT_ITS ---
Procedure: CT ANGIO ABDOMEN CLINICAL HISTORY: HTN Follow up AAA Lt sided flank pain COMPARISON: CT AGABD CT angio abdomen from 04/25/2018 CR XR LUMBAR SPINE MIN 4V from 08/18/2019 TECHNIQUE: IV Contrast: 100ml Isovue 370 Axial images obtained with sagittal and coronal reformats. All CT scans at the facility use one or more dose reduction, viz: automated exposure control, ma/kV adjustment per patient size (including targeted exams where dose is matched to indication, i.e. head), or iterative reconstruction technique. FINDINGS: There is aneurysmal dilatation of the abdominal aorta beginning at the thoraco abdominal junction at the level of the aortic hiatus. The aneurysm extends distally to just above the aortic bifurcation. There is a moderate amount of mural thrombus. The aneurysm measures up to 5 cm transverse and 4.3 cm AP. The aneurysm has increased in size compared to the previous exam previously measuring approximately 3.9 cm transverse and 3.3 cm AP. There is narrowing of the aortic lumen at the L3 level by approximately 50 percent. There is moderate stenosis of the proximal aspect of the celiac artery not significantly changed. The SMA appears widely patent. The aneurysm involves the level of the renal arteries. There are 2 right renal artery branches which are patent. The aorta is tortuous toward the left compressing the left kidney. 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 There are collaterals to the left kidney from the lumbars. The left kidney is atrophic. There is focal saccular protrusion along the left lateral aspect of the abdominal aorta at the L3 level which has developed since the previous exam. There is no evidence of acute retroperitoneal hemorrhage. Atheromatous changes involve the iliac arteries. There is mild fusiform dilatation of the distal aspect of the right common iliac artery at 1.2 cm and also on the left at 1.3 cm. Segmental areas of moderate stenosis involving both external iliac arteries. There is chronic wedge compression fractures of L2 and L3 similar to 08/18/2019. IMPRESSION: Enlarging abdominal aortic aneurysm as described above measuring up to 5 cm transverse and 4.3 cm AP with a moderate amount of mural thrombus. The aneurysm begins at the aortic hiatus at the thoraco abdominal junction and extends to the level just above the aortic bifurcation. There is a small focal saccular protrusion along the mid abdominal aorta at the L3 level. 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 Please see above for detailed description. There is no evidence of acute retroperitoneal hemorrhage. Dictated by: Ortiz Lucero MD 05/12/2021 08:08 Ortiz Lucero MD in [place] 05/12/2021 08:08
== END ==
PROVIDERS: PCP Family Medicine; Visit Provider Urology
DX: I10 Essential (primary) hypertension (principal); I25.10 Atherosclerotic heart disease of native coronary artery without angina pectoris; I71.4 Abdominal aortic aneurysm, without rupture
CPT/HCPCS: 74175; Q9967

== ENCOUNTER → 2021-07-27 11:28 | Outpatient (CLI) | payer MEDICARE, OTHER, SELFPAY ==
--- NOTE | 2021-07-27 11:33 | CA_ITS ---
APPROVED REPORT Right Lower Extremity Venous Study for DVT. Septic Tank Setter: Jordana Wild RVT Indications Lower Extremity Pain: Right PAIN RLE,NKI Medications Plavix Vein Imaging CFV (R): compressive, spontaneous, phasic, augmentation FEM (R): compressive, spontaneous, phasic, augmentation POP (R): compressive, spontaneous, phasic, augmentation PTV (R): Compressible GSV (R): Compressible Peroneals (R):Compressible GAS (R): Compressible Findings Study suggests no evidence of DVT or SVT of the right lower extremity. Conclusion Study suggests no evidence of DVT or SVT of the right lower extremity. Electronically signed by : Ortiz Lucero MD 07/27/2021 16:38:43
== END ==
PROVIDERS: PCP Family Medicine; Visit Provider Family Medicine
DX: M79.604 Pain in right leg (principal)
CPT/HCPCS: 93971

== ENCOUNTER → 2021-07-31 13:52 | Outpatient (CLI) | payer MEDICARE, OTHER, SELFPAY ==
--- NOTE | 2021-07-31 13:59 | US_ITS ---
APPROVED REPORT Exam Type: Ankle to Brachial Index Farm Operations Manager: Shantell Mcdowell RCS, RVS Indications HX- AAA Risk Factors Hypertension CAD Hyperlipidemia TIA/CVA History Cardiac Disease History of Smoking Pressures/Indices Right Indices Left Indices Brachial 141.00 mmHg Brachial 138.00 mmHg Low Thigh 148.00 mmHg 1.05 Low Thigh 137.00 mmHg 0.97 Calf 162.00 mmHg 1.15 Calf 164.00 mmHg 1.16 Ankle(PT) 145.00 mmHg 1.03 Ankle(PT) 156.00 mmHg 1.11 Ankle(DP) 143.00 mmHg 1.01 Ankle(DP) 157.00 mmHg 1.11 Digit 101.00 mmHg 0.72 Digit 85.00 mmHg 0.60 Findings RT VALERY=1.03 LT VALERY=0.60 RT TPI=0.72 LT TPI=0.60 Hx-AAA Dampened pedal pulses bilaterally. Abnormal toe pressures bilaterally. Conclusion RT VALERY=1.03 LT VALERY=0.60 RT TPI=0.72 LT TPI=0.60 Hx-AAA Dampened pedal pulses bilaterally. Mild to moderate left side arterial disease Electronically signed by : Ortiz Lucero MD 07/31/2021 15:43:07
== END ==
PROVIDERS: PCP Family Medicine; Visit Provider Family Medicine
DX: I70.213 Atherosclerosis of native arteries of extremities with intermittent claudication, bilateral legs (principal); M79.604 Pain in right leg
CPT/HCPCS: 93923

== ENCOUNTER → 2021-08-28 07:19 | Outpatient (CLI) | payer MEDICARE, OTHER, SELFPAY ==
[2021-08-28 08:09] LABS: Basophils # 0.1 K/mm3 (0-0.2); Basophils % 1.5 % (0.1-2.0); Eosinophils # 0.1 K/mm3 (0.0-0.4); Eosinophils % 2.2 % (0.1-12.0); Hematocrit 47.1 % (37.0-47.0); Hemoglobin 14.4 g/dL (12.2-16.2); Lymphocytes # 1.6 K/mm3 (0.7-4.5); Lymphocytes % 25.7 % (10-50); Mean Corpuscular HGB Conc 30.7 g/dL (31.8-35.4); Mean Corpuscular Hemoglobin 29.2 pg (27.0-31.2); Mean Corpuscular Volume 95.3 fl (81-99); Mean Platelet Volume 8.9 fl (7.4-10.4); Monocytes # 0.5 K/mm3 (0.1-1.0); Monocytes % 7.9 % (1.7-9.3); Neutrophils % 62.7 % (37.0-80.0); Platelet Count 249 K/mm3 (142-424); Red Blood Count 4.94 M/mm3 (4.20-5.40); Red Cell Distribution Width 15.1 % (11.5-17.5); White Blood Count 6.3 K/mm3 (4.8-10.8)
[2021-08-28 08:43] LABS: Chloride 108 mmol/L (98-107); Sodium 143 mmol/L (136-145)
[2021-08-28 08:44] LABS: Potassium 4.7 mmoL/L (3.5-5.1)
[2021-08-28 08:46] LABS: Blood Urea Nitrogen 16 mg/dl (7-17)
[2021-08-28 08:47] LABS: Anion Gap 12.7 mEq/L (5-15); Calcium 9.7 mg/dl (8.4-10.2); Carbon Dioxide 27 mmol/L (22.0-30.0); Estimated Glomerular Filt Rate 54 ml/min (>60); GFR (African American) 66 ML/MIN (>60); Glucose 94 mg/dl (74-100)
== END ==
PROVIDERS: PCP Family Medicine; Visit Provider Urology
DX: F17.200 Nicotine dependence, unspecified, uncomplicated (principal); I25.10 Atherosclerotic heart disease of native coronary artery without angina pectoris; I63.412 Cerebral infarction due to embolism of left middle cerebral artery; I70.1 Atherosclerosis of renal artery; I71.4 Abdominal aortic aneurysm, without rupture; I73.9 Peripheral vascular disease, unspecified; R68.89 Other general symptoms and signs; Z95.5 Presence of coronary angioplasty implant and graft; Z01.812 Encounter for preprocedural laboratory examination; Z11.52 Encounter for screening for COVID-19
CPT/HCPCS: 36415; 80048; 85025; C9803; U0003; U0005

== ENCOUNTER 2021-08-29 07:36 | Day surgery (SDC) | payer MEDICARE, OTHER, SELFPAY ==
[2021-08-29] VITALS (23 sets, daily range): BP systolic 98–195; BP diastolic 48–101; PULSE 56–95; RESP 13–19; TEMP 36.6; O2SAT 95–98; BMI 17.6
--- NOTE | 2021-08-29 07:08 | IR_ITS ---
APPROVED REPORT Patient Location: Outpatient [place] Painter: KALI Potter RT (R) PROCEDURES Catheter placed in the abdominal aorta Abdominal aortography Repositioning of the catheter in the abdominal aorta Bilateral iliofemoral runoff INDICATION Peripheral artery disease, Abnormal VALERY, [place] claudication class III Informed consent was obtained prior to the procedure. COMPLICATIONS none Estimated Blood Loss: leless than 10 ml TECHNIQUE 1% lidocaine used anesthetize right groin the right femoral artery was accessed via the Salinger technique and a 4 Czech sheath was placed in the right femoral artery. The pigtail catheter was advanced under fluoroscopic guidance into the abdominal aorta where abdominal aortography was performed. The catheter was then repositioned and bilateral iliofemoral runoff was performed. Following this the apparatus was removed the patient was transferred to the postop holding area in stable condition for sheath removal ANGIOGRAPHIC RESULTS The infrarenal abdominal aorta is mildly aneurysmal. There is no focal stenosis greater than 10 to 20% The right common iliac artery is calcified with diffuse 30% stenoses. The internal iliac arteries patent the right external iliac artery has calcified 30 and 40% stenoses. The right common femoral artery has a calcified eccentric 30% stenosis. The right profunda femoris artery is widely patent the right superficial femoral artery is widely patent minimally diseased and supplies widely patent minimally diseased popliteal artery. There is single-vessel runoff to the foot via the anterior tibialis artery. Both peroneal and posterior tibialis artery are ostially occluded The left common iliac artery is calcified with mild vascular ectasia and eccentric focal 30% calcified stenoses. The left internal iliac artery is occluded the left external iliac artery is calcified with 20% stenoses the left common femoral artery is widely patent left profunda femoris artery is normal the left superficial femoral artery is widely patent with mid vessel smooth 20% stenoses. The left popliteal artery has proximal eccentric 20 to 30% stenoses but is otherwise widely patent. This supplies the anterior tibialis artery which provides direct inline flow to the left foot IMPRESSION Peripheral artery disease as described above Widely patent bilateral SFA and popliteal arteries with single-vessel runoff below the knee bilaterally PLAN 1. Continue medical management Electronically signed by : Schuyler Moore MD 08/29/2021 09:42:52
[2021-08-29 14:03] LABS: CATHL Activated Clotting Time 172 SEC (74-125)
== END 2021-08-29 13:38 | disposition home or self-care (01) ==
LOC: CATHLAB 07:37
PROVIDERS: PCP Family Medicine; Visit Provider Internal Medicine
DX: I25.10 Atherosclerotic heart disease of native coronary artery without angina pectoris; I70.1 Atherosclerosis of renal artery; I71.4 Abdominal aortic aneurysm, without rupture; Z95.5 Presence of coronary angioplasty implant and graft; F17.210 Nicotine dependence, cigarettes, uncomplicated; Z79.01 Long term (current) use of anticoagulants; I70.213 Atherosclerosis of native arteries of extremities with intermittent claudication, bilateral legs; I77.1 Stricture of artery; I10 Essential (primary) hypertension
CPT/HCPCS: 36247; 75716; 85347; 99152; C1725; C1769; J1644; J2405; Q9966

== ENCOUNTER 2022-01-30 14:15 | Inpatient (IN) | payer MEDICARE, OTHER, SELFPAY ==
[2022-01-30] VITALS (9 sets, daily range): BP systolic 145–200; BP diastolic 93–122; PULSE 88–125; RESP 16–21; TEMP 36.1–36.4; O2SAT 95–98; BMI 21.2; BMI 21.0
--- NOTE | 2022-01-30 14:19 | XR_ITS ---
FINAL REPORT CLINICAL HISTORY: trauma/pain, pain rt hip COMPARISON: December 14, 2020 FINDINGS: SINGLE VIEW CHEST. The heart is normal in size. The mediastinum is unremarkable. There is mild fibrosis/scarring. There is no pneumothorax. IMPRESSION: No acute process. Reviewed, Interpreted and Dictated by Juan Goodson III, MD Transcribed by Deisy Woodward Authenticated by Juan Goodson III, MD on 01/30/2022 04:02:[address] [facility]
--- NOTE | 2022-01-30 14:19 | CT_ITS ---
FINAL REPORT CLINICAL HISTORY: trauma/anticoagulated, fall COMPARISON: 06/19/2018 FINDINGS: Axial CT images of the cervical spine were obtained without contrast. Sagittal and coronal reformatted images were also obtained. This study was performed with techniques to keep radiation doses as low as reasonably achievable (ALARA). Individualized dose reduction techniques using automated exposure control or adjustment of mA and/or kV according to the patient's size were employed. There is no evidence of fracture or dislocation. The bony alignment is normal. There are moderate degenerative changes. There is multilevel neural foraminal narrowing. No paraspinous soft tissue abnormality is seen. Limited images of the lung apices demonstrate emphysema and scarring. IMPRESSION: Degenerative change with no acute bony abnormality. Reviewed, Interpreted and Dictated by Juan Goodson III, MD Transcribed by Lovely Pereira Authenticated by Juan Goodson III, MD on 01/30/2022 03:41:25 PM [facility]
--- NOTE | 2022-01-30 14:19 | XR_ITS ---
FINAL REPORT CLINICAL HISTORY: trauma/pain, fall rt hip pain FINDINGS: RIGHT HIP 2 views of the right hip including an AP pelvis were obtained. There is a fracture of the right femoral neck with coxa vara deformity. There are mild degenerative changes. There is no soft tissue abnormality. IMPRESSION: Fracture of the right femoral neck with coxa vara deformity. Reviewed, Interpreted and Dictated by Juan Goodson III, MD Transcribed by Deisy Woodward Authenticated by Juan Goodson III, MD on 01/30/2022 03:47:[address] [facility]
--- NOTE | 2022-01-30 14:19 | XR_ITS ---
FINAL REPORT CLINICAL HISTORY: trauma/pain, fall rt hip pain FINDINGS: RIGHT FEMUR 2 views were obtained. There is a fracture of the right femoral neck with coxa vera deformity. There are mild degenerative changes. There is no soft tissue abnormality. IMPRESSION: Fracture of the right femoral neck with coxa vera deformity. Reviewed, Interpreted and Dictated by Juan Goodson III, MD Transcribed by Deisy Woodward Authenticated by Juan Goodson III, MD on 01/30/2022 03:47:34 PM [facility]
--- NOTE | 2022-01-30 14:19 | CT_ITS ---
FINAL REPORT CLINICAL HISTORY: trauma/anticoagulated COMPARISON: June 19, 2018 FINDINGS: Axial images of the head were obtained without contrast. Coronal reformatted images were also obtained. This study was performed with techniques to keep radiation doses as low as reasonably achievable (ALARA). Individualized dose reduction techniques using automated exposure control or adjustment of mA and/or kV according to the patient's size were employed. There is generalized age-appropriate atrophy. Periventricular low-attenuation areas are seen consistent with moderate chronic ischemic changes. There is no evidence of intracranial hemorrhage or mass. There is no evidence of acute infarct. There are chronic bilateral lacunar infarcts. There is no evidence of shift of the midline structures. No skull abnormality is seen on the bone window images. There is moderate mucosal thickening in the left maxillary sinus. IMPRESSION: Atrophy and mild periventricular chronic ischemic changes. No acute intracranial abnormality identified. Reviewed, Interpreted and Dictated by Juan Goodson III, MD Transcribed by Lovely Pereira Authenticated by Juan Goodson III, MD on 01/30/2022 03:33:45 PM [facility]
--- NOTE | 2022-01-30 14:22 | XR_ITS ---
FINAL REPORT CLINICAL HISTORY: trauma/pain, fall COMPARISON: August 18, 2019 FINDINGS: LUMBAR SPINE Three views were obtained. There is no definite acute fracture. There are moderate L2 and mild L3 compression fractures which are stable since August 2019. There is no malalignment. There is leftward curvature. The disc spaces are preserved. There are moderate vascular calcifications. IMPRESSION: No definite acute fracture. Reviewed, Interpreted and Dictated by Juan Goodson III, MD Transcribed by Deisy Woodward Authenticated by Juan Goodson III, MD on 01/30/2022 04:02:58 PM [facility]
--- NOTE | 2022-01-30 14:23 | HMH.EDFALL ---
ED Disposition Clinical Impression: Closed right hip fracture Qualifiers: Encounter type: initial encounter Qualified Code(s): S72.001A - Fracture of unspecified part of neck of right femur, initial encounter for closed fracture Disposition: Admitted As Inpatient Condition on Discharge: Good Referrals: Morenita Browne MD [Primary Care Provider] - - Critical Care Critical Care Time: No Attestation: On , the high probability of a clinically significant, sudden or life threatening deterioration of the following system(s) required my full and direct attention, intervention and personal management. The time I documented below is in addition to time spent performing reported procedures but includes the following listed in this critical care notation. Medical Decision Making - Medical Records Medical records reviewed: Yes: I reviewed the patient's medical records. - [facility] Inquiry Pt receiving controlled substance: No Vital Signs: 01/30/22 14:30 01/30/22 14:58 01/30/22 16:00 Temperature 96.9 F L Temperature Source Rectal Pulse Rate 125 H 117 H Pulse Rate [Left Radial] 88 Respiratory Rate 17 Blood Pressure 200/122 H 192/115 H Blood Pressure [Right Arm] 194/122 H Blood Pressure Mean 145 Blood Pressure Mean [Right Arm] 146 Blood Pressure Source Automatic Cuff 02 Sat by Pulse Oximetry 95 98 96 Oxygen Delivery Method Nasal Cannula Nasal Cannula Oxygen Flow Rate (LPM) 2 2 01/30/22 16:17 01/30/22 16:21 Temperature Temperature Source Pulse Rate 117 H 94 H Pulse Rate [Left Radial] Respiratory Rate Blood Pressure 186/112 H 170/105 H Blood Pressure [Right Arm] Blood Pressure Mean 137 126 Blood Pressure Mean [Right Arm] Blood Pressure Source 02 Sat by Pulse Oximetry 97 97 Oxygen Delivery Method Nasal Cannula Nasal Cannula Oxygen Flow Rate (LPM) 2 2 - Lab Data Lab Results 01/30/22 15:33: Urine Color Yellow, Urine Appearance Clear, Urine pH 6.0, Ur Specific [place] 1.025, Urine Protein 2+, Urine Glucose (UA) Negative, Urine Ketones Negative, Urine Blood 1+, Urine Nitrate Negative, Urine Bilirubin Negative, Urine Urobilinogen 0.2, Ur Leukocyte Esterase Negative, Urine RBC 5-10, Urine WBC 3-5, Ur Squamous Epith Cells Occasional, Urine Bacteria 4+ 01/30/22 15:56: WBC 11.5 H, RBC 5.35, Hgb 15.8, Hct 50.8 H, MCV 95.0, MCH 29.5, MCHC 31.0 L, RDW 15.7, Plt Count 230, MPV 9.7, Neut % (Auto) 88.9 H, Lymph % (Auto) 4.4 L, [place] % (Auto) 5.5, Eos % (Auto) 0.3, Baso % (Auto) 0.9, Neut # (Auto) 10.2 H, Lymph # (Auto) 0.5 L, [place] # (Auto) 0.6, Eos # (Auto) 0.0, Baso # (Auto) 0.1 01/30/22 15:56: Sodium 136, Potassium 4.5, Chloride 103, Carbon Dioxide 24, Anion Gap 13.5, BUN 19 H, Creatinine 1.00, Estimated Creat Clear 43, Estimated GFR 54 L, Est GFR ( Amer) 66, Glucose 151 H, Calcium 9.5, Total Bilirubin 0.8, AST 46 H, ALT 29, Alkaline Phosphatase 105, Total Creatine Kinase 249 H, Troponin I 0.30 H, Total Protein 8.0 D, Albumin 4.4, Globulin 3.6 H, Albumin/Globulin Ratio 1.2 01/30/22 15:56: Lactate 2.2 H 01/30/22 15:56: PT 12.0, INR 1.07, APTT 26.8 Result diagrams: 01/30/22 15:56 01/30/22 15:56 Orders (Tests/Meds): ED MEDICATIONS Generic Name Dose Route Start Last Admin Trade Name Freq PRN Reason Stop Dose Admin Sodium Chloride 1,000 mls @ 150 mls/hr 01/30/22 14:30 Sod Chlor 0.9% 1000ml Bag IV 03/01/22 14:29 .[id number] JESSICA Ceftriaxone Sodium 2 gm/ 100 mls @ 200 mls/hr 01/30/22 17:00 Sodium Chloride IV 02/13/22 16:59 Q24H JESSICA Discontinued Medications Generic Name Dose Route Start Last Admin Trade Name Freq PRN Reason Stop Dose Admin Metoprolol Tartrate 5 mg 01/30/22 15:57 01/30/22 16:04 Metoprolol Tartrate 5mg/5ml Vial IV 01/30/22 15:58 5 mg ONCE ONE Administration Morphine Sulfate 2 mg 01/30/22 14:19 01/30/22 14:57 Morphine 2mg/Ml Syringe IV 01/30/22 14:20 2 mg ONCE ONE Administration Morphine Sulfate 2 mg 01/30/22 15:54 01/30/22
--- NOTE | 2022-01-30 15:21 | PC.NURSE ---
fsbs 54, notified ER
--- NOTE | 2022-01-30 15:28 | PC.NURSE ---
called lab for blood collection
[2022-01-30 15:37] LABS: Microscopic, Urine URINE MICROSCOPIC (MICROSCOPIC)
[2022-01-30 15:44] LABS: Appearance,Urine CLEAR (Clear); Bilirubin,Urine Negative (Negative); Blood, Urine 1+ (Negative); Color,Urine YELLOW (Yellow); Glucose,Urine (UA) Negative (Negative); Ketones,Urine Negative (Negative); Leukocyte Esterase,Urine Negative (Negative); Nitrate,Urine Negative (Negative); Protein,Urine 2+ (Negative); Specific Gravity, Urine 1.025 (1.005-1.030); Urobilinogen,Urine 0.2 EU/dl (0.2)
--- NOTE | 2022-01-30 15:53 | PC.NURSE ---
notified ER MD of elevated bp, he is reviewing pt test results at this time. Will continue to monitor
--- NOTE | 2022-01-30 16:06 | PC.NURSE ---
slitting machine operator helper paging ortho environmental health aide
[2022-01-30 16:20] LABS: Basophils # 0.1 K/mm3 (0-0.2); Basophils % 0.9 % (0.1-2.0); Eosinophils % 0.3 % (0.1-12.0); Hematocrit 50.8 % (37.0-47.0); Hemoglobin 15.8 g/dL (12.2-16.2); Lymphocytes # 0.5 K/mm3 (0.7-4.5); Lymphocytes % 4.4 % (10-50); Mean Corpuscular Hemoglobin 29.5 pg (27.0-31.2); Mean Platelet Volume 9.7 fl (7.4-10.4); Monocytes # 0.6 K/mm3 (0.1-1.0); Monocytes % 5.5 % (1.7-9.3); Neutrophils # 10.2 K/mm3 (1.8-7.8); Neutrophils % 88.9 % (37.0-80.0); Platelet Count 230 K/mm3 (142-424); Red Blood Count 5.35 M/mm3 (4.20-5.40); Red Cell Distribution Width 15.7 % (11.5-17.5); White Blood Count 11.5 K/mm3 (4.8-10.8)
[2022-01-30 16:23] LABS: Alanine Aminotransferase 29 U/L (12-78); Albumin Level 4.4 g/dl (3.5-5.0); Albumin/Globulin Ratio 1.2 (1.1-1.8); Alkaline Phosphatase 105 U/L (38-126); Anion Gap 13.5 mEq/L (5-15); Aspartate Amino Transferase 46 U/L (14-36); Bilirubin,Total 0.8 mg/dl (0.2-1.3); Blood Urea Nitrogen 19 mg/dl (7-17); Calcium 9.5 mg/dl (8.4-10.2); Carbon Dioxide 24 mmol/L (22.0-30.0); Chloride 103 mmol/L (98-107); Creatine Kinase 249 U/L (30-135); Creatinine Clearance Estimated 43 mL/min (50-200); Estimated Glomerular Filt Rate 54 ml/min (>60); GFR (African American) 66 ML/MIN (>60); Globulin 3.6 g/dL (1.3-3.2); Glucose 151 mg/dl (74-100); Potassium 4.5 mmoL/L (3.5-5.1); Sodium 136 mmol/L (136-145)
[2022-01-30 16:26] LABS: Lactic Acid 2.2 mmol/L (0.7-2.1)
[2022-01-30 16:27] LABS: Activated Partial Thrombo Time 26.8 seconds (22.8-30.6); INR 1.07 (0.9-1.1)
[2022-01-30 16:28] LABS: MANUAL DIFFERENTIAL MANUAL DIFFERENTIAL (MANUAL DIFF)
[2022-01-30 16:31] LABS: Bacteria,Urine 4+ /lpf; Squamous Epithelial Cell,Urine Occasional #/hpf (0-5)
--- NOTE | 2022-01-30 16:39 | ECG_ITS ---
APPROVED REPORT Exam: Resting ECG HR:95 bpm ECG Measurements Heart Rate 95 AXES LA 199 P 71 QRSd 98 QRS 47 QT 384 T 70 QTc 437 Conclusion SINUS RHYTHM NORMAL ECG UNCONFIRMED REPORT Electronically signed by : Rush Link MD 02/01/2022 16:18:22
--- NOTE | 2022-01-30 17:15 | PC.NURSE ---
NOTIFIED PRODUCT SAFETY ASSOCIATE OF ADMISSION.
--- NOTE | 2022-01-30 17:27 | PC.NURSE ---
notified ER MD that pt family told me at this time pt take gabapentin 100mg po bid medicated added onto pt medication list
--- NOTE | 2022-01-30 17:40 | PC.NURSE ---
Received report from muriel OLIVAREZ RN
[2022-01-30 17:49] LABS: Burr Cells 1+; Lymphocytes % 6 % (10-50); Monocytes % 8 % (2-9); Neutrophils % 84 % (42-76); Platelet Estimate Normal; Total Cells Counted 100
--- NOTE | 2022-01-30 18:06 | PC.NURSE ---
Spoke with Alysha RN to ask about pts covid swab. There is not even an placed. Called and asked she stated that she had swabbed already and would look into it.
[2022-01-30 18:38] LABS: Troponin I 0.39 ng/ml (0.00-0.034)
--- NOTE | 2022-01-30 18:38 | PC.NURSE ---
MD aware of trop of 3.9
[2022-01-30 18:46] LABS: Coronavirus 19, PCR Not Detected (NotDetected); Influenza A, PCR Not Detected (NotDetected); Influenza B, PCR Not Detected (NotDetected)
--- NOTE | 2022-01-30 20:01 | PC.NURSE ---
pt arived to floor via wheel chair at this time.
--- NOTE | 2022-01-30 20:01 | PC.NURSE ---
pt arrived to floor via stretcher at this time.
[2022-01-30 20:12] LABS: Reflex Lactic Add Lactic Reflex
[2022-01-30 21:22] LABS: Lactic Acid Follow Up (RFLX 1) 1.4 mmol/L (0.7-2.1)
[2022-01-31] VITALS (20 sets, daily range): BP systolic 93–201; BP diastolic 54–113; PULSE 76–134; RESP 12–16; TEMP 36–43; O2SAT 93–99; BMI 21.0
[2022-01-31 05:57] LABS: Basophils % 0.4 % (0.1-2.0); Eosinophils % 0.2 % (0.1-12.0); Hematocrit 44.5 % (37.0-47.0); Hemoglobin 14.6 g/dL (12.2-16.2); Lymphocytes # 0.7 K/mm3 (0.7-4.5); Lymphocytes % 10.1 % (10-50); Mean Corpuscular HGB Conc 32.8 g/dL (31.8-35.4); Mean Corpuscular Hemoglobin 30.3 pg (27.0-31.2); Mean Corpuscular Volume 92.3 fl (81-99); Mean Platelet Volume 9.5 fl (7.4-10.4); Monocytes # 0.4 K/mm3 (0.1-1.0); Monocytes % 5.7 % (1.7-9.3); Neutrophils # 5.7 K/mm3 (1.8-7.8); Neutrophils % 83.6 % (37.0-80.0); Platelet Count 193 K/mm3 (142-424); Red Blood Count 4.82 M/mm3 (4.20-5.40); Red Cell Distribution Width 15.7 % (11.5-17.5); White Blood Count 6.8 K/mm3 (4.8-10.8)
[2022-01-31 06:07] LABS: Anion Gap 9.9 mEq/L (5-15); Blood Urea Nitrogen 24 mg/dl (7-17); Calcium 8.4 mg/dl (8.4-10.2); Carbon Dioxide 23 mmol/L (22.0-30.0); Chloride 110 mmol/L (98-107); Creatinine Clearance Estimated 36 mL/min (50-200); Estimated Glomerular Filt Rate 44 ml/min (>60); GFR (African American) 53 ML/MIN (>60); Glucose 119 mg/dl (74-100); Potassium 4.9 mmoL/L (3.5-5.1); Sodium 138 mmol/L (136-145)
--- NOTE | 2022-01-31 07:02 | HMH.PHAVTE ---
[facility] Pharmacy VTE Monitoring - Patient Demographics Admission date: 01/30/22 Report Date: 01/31/22 Time: 07:02 Allergies/Adverse Reactions: Patient Allergies lisinopril Allergy (Severe, Verified 01/30/22 20:18) Swelling of Lip/Tongue/Throat ticagrelor [From Brilinta] Adverse Reaction (Intermediate, Verified 01/30/22 20:18) Difficulty Breathing Height: 1.6 m Weight: 53.932 kg Patient Problems: Current Active Problems Closed right hip fracture (Acute) - VTE Risk Labs: VTE Related Lab Results Hgb 14.6 g/dL (12.2-16.2) 01/31/22 05:37 Hct 44.5 % (37.0-47.0) 01/31/22 05:37 Plt Count 193 K/mm3 (142-424) 01/31/22 05:37 PT 12.0 seconds (10.1-12.5) 01/30/22 15:56 INR 1.07 (0.9-1.1) 01/30/22 15:56 APTT 26.8 seconds (22.8-30.6) 01/30/22 15:56 BUN 24 mg/dl (7-17) H D 01/31/22 05:37 Creatinine 1.20 mg/dl (0.52-1.04) H 01/31/22 05:37 Estimated Creat Clear 36 mL/min (50-200) 01/31/22 05:37 VTE Score: 7 VTE Risk Level: Moderate Risk - Prophylaxis VTE Prophylaxis Ordered?: Yes Types of VTE Prophylaxis: TEDS Knee High Location of Applied Device: Bilateral Lower Extremeties
--- NOTE | 2022-01-31 07:45 | HMH.PHAINT ---
verified home medication list using list from [facility]
--- NOTE | 2022-01-31 07:53 | CA_ITS ---
APPROVED REPORT EXAM: Comprehensive 2D, Doppler, and color-flow Echocardiogram Control Area Operator: Jordana Wild RVT Ht: 5 ft 2 in Wt: 118lbs BSA: 1.53 BP: 170/105 mmHg Indications: PRE-OP RT HIP FX,MURMUR,ELEVATED TROP,CAD,AAA,SMOKER,DM,HTN,HLD,HX CVA TDS-FLAT ON BACK 2D Dimensions LVOT 2.04 cm (M/F) 1.5-2.5 M-Mode Dimensions RVDd 1.79 cm (0.9-2.6) LA Diam 3.45 cm (1.9-4.0) LVDd 4.57 cm (3.5-5.7) Ao Diam 2.88 cm (2.0-3.7) LVDs 3.32 cm (3.5-5.7) IVSd 1.68 cm (0.6-1.1) PWd 0.89 cm (0.6-1.1) EF (Teich) 53.30% FS 27.40% EDV (Teich) 95.90 mL TAPSE 2.21 (<1.7) ESV (Teich) 44.80 mL LV Diastology E Decel Time 150.00 (160-240 msec) E/A Ratio 0.4 MED E' 12.40 (< 7 cm/sec) E'/MED E' Ratio 2.99 (>14) LAT E' 10.50 (<10 cm/sec) E/LAT E' Ratio 3.53 (>14) Aortic Valve AO Peak GR. 7.70 mmHg Mitral Valve MV E Max Yousuf. 37.00 (40-130 cm/s) MV A Velocity 84.00 (40-130 cm/s) E/A Ratio 0.44 MV Decel. Time 150.00 (160-240 ms) MV PHT 44.00 ms Pulmonary Valve PV Peak Velocity 68.00 (50-150 cm/s) Left Ventricle Left atrium is mildly enlarged, left ventricle is normal size, mild concentric left ventricular hypertrophy, visually estimated ejection fraction 55% with no regional wall motion abnormality, Doppler evidence of impaired LV relaxation seen. Right Ventricle Right atrium and right ventricle are normal size and contractility. Aortic Valve Aortic valve is thickened and calcified without Doppler evidence of aortic stenosis or aortic insufficiency. Mitral Valve Mitral leaflets are minimally thickened, there is mild mitral regurgitation. Tricuspid Valve Tricuspid valve grossly normal, there is trace tricuspid regurgitation. Tricuspid regurgitation jet versus inadequate for calculation of the right ventricular systolic pressure. Pulmonic Valve Pulmonic valve is poorly visualized. Great Vessels Aortic root is normal size. Inferior vena cava is poorly visualized. Pericardium No significant pericardial effusion noted. Conclusion 1. Normal left ventricular size, preserved left ventricular systolic function, visually estimated ejection fraction 55% with no regional wall motion abnormality, Doppler evidence of impaired LV relaxation seen. 2. Thickened and calcified aortic valve without aortic stenosis or aortic insufficiency. 3. Mild mitral and trace tricuspid regurgitation. 4. No significant pericardial effusion. 5. Inferior vena cava is poorly visualized. Electronically signed by : Richie Webb MD 01/31/2022 10:26:11
--- NOTE | 2022-01-31 09:13 | HMH.ORTHOCON ---
*Admission Date: 01/30/22 <ManjitZully 01/31/22 09:14> *Reason for consult:: right hip fracture <Zully Saravia 01/31/22 09:14> *History of present illness: Patient is a 71-year-old female admitted to the acute inpatient service from the [facility] ED on 01/30/2022 after sustaining a fall at home. History obtained from the patient's daughter who is at the bedside as well as ED documentation. Per the patient's daughter, she was found down in her bathroom yesterday 01/30/2022 following an unwitnessed fall. The patient has been oriented to person only and is unsure of why she fell. She was down for 12 or more hours prior to being found by her son, who brought her to the ER for evaluation. Evaluation in the [facility] ED revealed a right femoral neck fracture. Today the patient denies pain in the right hip at rest. She denies other injuries, distal numbness/tingling, chest pain, palpitations, or shortness of breath. Her daughter reports that the patient lives alone in her own home and occasionally uses a cane and/or walker to ambulate at baseline. Her past medical history is significant for scleroderma, CVA, myocardial infarction December 2019, abdominal aortic aneurysm, hypertension, hyperlipidemia, peripheral artery disease, renal artery stenosis, and coronary artery disease with stent placement. She is a former smoker. She denies any other symptoms or concerns at this time. <Zully Saravia 01/31/22 12:09> [facility] History Medical History: Reports:: Aneurysm, Cerebrovascular Accident, Hyperlipidemia, Hypertension, Myocardial Infarction Denies:: Cancer, Diabetes Mellitus Type 1, Diabetes Mellitus Type 2, Internal Pacemaker, MRSA, Seizures <Zully Saravia 01/31/22 09:14> *Have you ever received a pneumonia vaccine?: No <Zully Saravia 01/31/22 09:14> *Have you received a flu vaccine this season?: Yes <Zully Saravia 01/31/22 09:14> Other Medical History: Reports: Other <Zully Saravia 01/31/22 09:14> Other Surgeries: Yes: No Previous Surgery, Angiogram, Cardiac Catheterization, Cardiac Surgery, Coronary Stent. No: Pacemaker <Zully Saravia 01/31/22 09:14> Amputation: No <Zully Saravia 01/31/22 09:14> Fractures: No <Zully Saravia 01/31/22 09:14> - *Social History Smoking Status: Former smoker <Zully Saravia 01/31/22 09:14> Tobacco Type: cigarettes <Zully Saravia 01/31/22 09:14> # Packs/Day (cigarettes): 1 <Zully Saravia 01/31/22 09:14> Alcohol Intake: never <Zully Saravia 01/31/22 09:14> *Occupational Status:: retired <Zully Saravia 01/31/22 09:14> Housing: house <Zully Saravia 01/31/22 09:14> Household Members: spouse <Zully Saravia 01/31/22 09:14> *Travel in the last 8 weeks: None <Zully Saravia 01/31/22 09:14> Family Hx:: Diabetes, Heart Attack, Hyperlipidemia, Hypertension <Zully Saravia 01/31/22 09:14> Review of Systems - Review of Systems Review of systems:: unable to obtain <Zully Saravia 01/31/22 10:59> Meds Home Medications Medication Instructions Recorded Confirmed Type OXcarbazepine [Trileptal] 300 mg PO BID 04/11/18 01/30/22 History Potassium Chloride [Klor-con 20 20 meq PO BID 04/11/18 01/30/22 History mEq tablet] Atorvastatin Calcium [Lipitor 40mg 40 mg PO HS 06/19/18 01/31/22 History Tab] carvedilol 3.125 mg tablet 3.125 mg PO BID 12/26/20 01/31/22 History omeprazole 20 mg capsule,delayed 20 mg PO DAILY 12/26/20 01/30/22 History release valsartan 40 mg tablet 80 mg PO DAILY tab 01/23/21 09/05/21 History Aspirin [Aspirin 81mg EC Tab] 81 mg PO DAILY 08/29/21 01/30/22 History Rivaroxaban [Xarelto 2.5mg Tab*] 2.5 mg PO BID 08/29/21 01/30/22 History Calcium Carbonate/Vitamin D3 1 each PO DAILY 01/30/22 01/30/22 History [Calcium 600 mg-D3 20 Mcg Tab] Gabapentin [Gabapentin 100mg Cap] 100 mg PO BID 01/30/22 01/30/22 History buPROPion HCL [Wellbutrin SR] 150 mg PO BID 01/03
--- NOTE | 2022-01-31 10:12 | HMH.HP ---
*Admission Date: 01/30/22 *Chief complaint: hip fracture *History of present illness: 71-year-old female presented to ed after a fall in her bathroom. The patient was found down in her bathroom after an unwitnessed fall per family she was down over 12 hours before her son found her and had her transported to [facility]. The patient denied having any chest pain or pressure. She denies any shortness of breath or edema. She denies any fever, chills, nausea, vomiting, diarrhea, PND or orthopnea. The patient lives alone and uses a cane or walker for ambulation. She does have a history of coronary artery disease with an HI in December 2019 and severe three-vessel disease with coronary stenting. Admitted for right femoral neck fracture and cardiology consult for clearance. [facility] History I have reviewed the patient's past medical history: Yes Medical History: Reports:: Aneurysm, Cerebrovascular Accident, Hyperlipidemia, Hypertension, Myocardial Infarction Denies:: Cancer, Diabetes Mellitus Type 1, Diabetes Mellitus Type 2, Internal Pacemaker, MRSA, Seizures *Have you ever received a pneumonia vaccine?: No *Have you received a flu vaccine this season?: Yes Other Medical History: Reports: Other Other Surgeries: Yes: No Previous Surgery, Angiogram, Cardiac Catheterization, Cardiac Surgery, Coronary Stent. No: Pacemaker Amputation: No Fractures: No - *Social History Smoking Status: Former smoker Tobacco Type: cigarettes # Packs/Day (cigarettes): 1 Alcohol Intake: never *Occupational Status:: retired Housing: house Household Members: spouse *Travel in the last 8 weeks: None Family Hx:: Diabetes, Heart Attack, Hyperlipidemia, Hypertension Review of Systems - Review of Systems Review of systems:: pertinent systems reviewed and negative unless documented below - Constitutional Denies body ache(s) - Eyes Denies blurry vision - ENT Denies abnormal hearing - *Cardiovascular Denies chest pain - *Respiratory Denies chest congestion - *Gastrointestinal Denies abdominal pain - *Genitourinary Denies abnormal periods - *Musculoskeletal Reports joint pain, Reports other - Integumentary/Breasts Denies rash - *Neurologic Denies abnormal walking - Psychiatric Denies confusion - Endocrine Denies excessive sweating - Hematologic/Lymphatic Denies easy bruising - Allergic/Immunologic Denies itchy eyes Meds Home Medications Medication Instructions Recorded Confirmed Type OXcarbazepine [Trileptal] 300 mg PO BID 04/11/18 01/30/22 History Potassium Chloride [Klor-con 20 20 meq PO BID 04/11/18 01/30/22 History mEq tablet] Atorvastatin Calcium [Lipitor 40mg 40 mg PO HS 06/19/18 01/31/22 History Tab] carvedilol 3.125 mg tablet 3.125 mg PO BID 12/26/20 01/31/22 History omeprazole 20 mg capsule,delayed 20 mg PO DAILY 12/26/20 01/30/22 History release valsartan 40 mg tablet 80 mg PO DAILY tab 01/23/21 09/05/21 History Aspirin [Aspirin 81mg EC Tab] 81 mg PO DAILY 08/29/21 01/30/22 History Rivaroxaban [Xarelto 2.5mg Tab*] 2.5 mg PO BID 08/29/21 01/30/22 History Calcium Carbonate/Vitamin D3 1 each PO DAILY 01/30/22 01/30/22 History [Calcium 600 mg-D3 20 Mcg Tab] Gabapentin [Gabapentin 100mg Cap] 100 mg PO BID 01/30/22 01/30/22 History buPROPion HCL [Wellbutrin SR] 150 mg PO BID 01/30/22 01/30/22 History Valsartan [Valsartan 80mg 80 mg PO DAILY 01/31/22 01/31/22 History Tablets] Allergies Allergy/AdvReac Type Severity Reaction Status Date / Time lisinopril Allergy Severe Swelling Verified 01/30/22 20:18 of Lip/Tongue/Throat ticagrelor [From Brilinta] AdvReac Intermediate Difficulty Verified 01/30/22 20:18 Breathing Exam Vital signs and Labs for Last 24 Hours: Temp Pulse Resp BP Pulse Ox 97.9 F 109 H 16 141/80 H 94 L 01/31/22 07:41 01/31/22 07:41 01/31/22 07:41 01/31/22 07:41 01/31/22 07:41 Laboratory Results - last 24 hr
--- NOTE | 2022-01-31 10:17 | SW/DCPLANNER ---
Addendum entered by [facility] 02/05/22 10:01: [facility] has stated that she can accept this patient. Patient will be required to have an additional COVID swab this AM. I will follow up with Dr Roach and Dusty regarding placement and discharge date. Addendum entered by [facility] 02/05/22 08:46: Updated patient information has been faxed to [facility]i [facility]. Addendum entered by [facility] 02/02/22 10:44: Updated patient information has been faxed to [facility]i [facility]. Addendum entered by [facility] 02/01/22 10:08: I have updated Cami with [facility] regarding this patient. Original Note: This patient currently resides at home alone w/ family that checks on her often. Patient admitted with hip fx and will have surgery later today or tomorrow. Patient's daughter was present during rounds and understands that patient will need SNF level of care at time of discharge. Daughter has requested [facility] once medically stable for discharge. I will fax information to Cami today and continue to keep her updated. Discharge date is unknown at this time.
--- NOTE | 2022-01-31 11:15 | HMH.CNCARD ---
History of Present Illness Consult date: 01/31/22 Requesting physician: Zane Guthrie Consult reason: pre-op evaluation Chief complaint: fall History of present illness: This is a 71-year-old white female who was admitted to the hospital after a fall at home. The patient was found down in her bathroom after an unwitnessed fall. The patient did sustain a right femoral neck fracture. The patient was down at home in the bathroom for over 12 hours before her son found her and had her transported to [facility]. The patient denied having any chest pain or pressure. She denies any shortness of breath or edema. She denies any fever, chills, nausea, vomiting, diarrhea, PND or orthopnea. The patient lives alone and uses a cane or walker for ambulation. She does have a history of coronary artery disease with an VT in December 2019 and severe three-vessel disease with coronary stenting. She states that her hip is currently not painful. [facility] History I have reviewed the patient's past medical history: Yes Medical History: Reports:: Aneurysm, Atherosclerotic Heart Disease, Coronary Artery Disease, Cerebrovascular Accident, Hyperlipidemia, Hypertension, Myocardial Infarction Denies:: Cancer, Diabetes Mellitus Type 1, Diabetes Mellitus Type 2, Internal Pacemaker, MRSA, Seizures *Have you ever received a pneumonia vaccine?: No *Have you received a flu vaccine this season?: Yes Other Medical History: Reports: Other Other Surgeries: Yes: No Previous Surgery, Angiogram, Cardiac Catheterization, Cardiac Surgery, Coronary Stent. No: Pacemaker Amputation: No Fractures: No - *Social History Smoking Status: Former smoker Tobacco Type: cigarettes # Packs/Day (cigarettes): 1 Alcohol Intake: never *Occupational Status:: retired Housing: house Household Members: spouse *Travel in the last 8 weeks: None Family Hx:: Diabetes, Heart Attack, Hyperlipidemia, Hypertension Meds Home Medications Medication Instructions Recorded Confirmed Type OXcarbazepine [Trileptal] 300 mg PO BID 04/11/18 01/30/22 History Potassium Chloride [Klor-con 20 20 meq PO BID 04/11/18 01/30/22 History mEq tablet] Atorvastatin Calcium [Lipitor 40mg 40 mg PO HS 06/19/18 01/31/22 History Tab] carvedilol 3.125 mg tablet 3.125 mg PO BID 12/26/20 01/31/22 History omeprazole 20 mg capsule,delayed 20 mg PO DAILY 12/26/20 01/30/22 History release valsartan 40 mg tablet 80 mg PO DAILY tab 01/23/21 09/05/21 History Aspirin [Aspirin 81mg EC Tab] 81 mg PO DAILY 08/29/21 01/30/22 History Rivaroxaban [Xarelto 2.5mg Tab*] 2.5 mg PO BID 08/29/21 01/30/22 History Calcium Carbonate/Vitamin D3 1 each PO DAILY 01/30/22 01/30/22 History [Calcium 600 mg-D3 20 Mcg Tab] Gabapentin [Gabapentin 100mg Cap] 100 mg PO BID 01/30/22 01/30/22 History buPROPion HCL [Wellbutrin SR] 150 mg PO BID 01/30/22 01/30/22 History Valsartan [Valsartan 80mg 80 mg PO DAILY 01/31/22 01/31/22 History Tablets] Allergies Allergy/AdvReac Type Severity Reaction Status Date / Time lisinopril Allergy Severe Swelling Verified 01/30/22 20:18 of Lip/Tongue/Throat ticagrelor [From Brilinta] AdvReac Intermediate Difficulty Verified 01/30/22 20:18 Breathing Exam Vital signs and Labs for Last 24 Hours: Temp Pulse Resp BP Pulse Ox 97.9 F 109 H 16 141/80 H 94 L 01/31/22 07:41 01/31/22 07:41 01/31/22 07:41 01/31/22 07:41 01/31/22 07:41 Laboratory Results - last 24 hr 01/30/22 15:33: Urine Color Yellow, Urine Appearance Clear, Urine pH 6.0, Ur Specific [place] 1.025, Urine Protein 2+, Urine Glucose (UA) Negative, Urine Ketones Negative, Urine Blood 1+, Urine Nitrate Negative, Urine Bilirubin Negative, Urine Urobilinogen 0.2, Ur Leukocyte Esterase Negative, Urine RBC 5-10, Urine WBC 3-5, Ur Squamous Epith Cells Occasional, Urine Bacteria 4+ 01/30/22 15:56: WBC 11.5 H, RBC 5.35, Hgb 15.8, Hct 50.8 H, MCV 95.0, MCH 29.5, MCHC 31.0 L, RDW 15.7, Plt Count 230,
--- NOTE | 2022-01-31 13:23 | PC.NURSE ---
Pt is refusing to turn at all. I have asked multiple times and she starts to get upset. I will continue to monitor and ask to turn.
--- NOTE | 2022-01-31 14:18 | PC.NURSE ---
Called Dr Mason office. Spoke with Jeanette explained that I am unable to put orders in that Zully needs to do it before pt can be taken to surgery. She would pass along to
--- NOTE | 2022-01-31 15:38 | PC.NURSE ---
Manual BP was 190/94
--- NOTE | 2022-01-31 16:17 | PC.NURSE ---
Called and paged Dr. Link
--- NOTE | 2022-01-31 16:25 | PC.NURSE ---
Gave pt 2mg of morphine to see if it would change the BP. We retook it manually and it was 166/112.
--- NOTE | 2022-01-31 16:47 | PC.NURSE ---
Spoke with Dr. Link and received verbal order for lopressor 5mg IV
--- NOTE | 2022-01-31 19:37 | PC.NURSE ---
PT IS OFF FLOOR VIA BED W/OR STAFF @ THIS TIME
--- NOTE | 2022-01-31 20:18 | HMH.ANESCL ---
[facility] Anesthesia Checklist - Patient Identification Patient Identification: Arm Band, Family - Structural Data Admitted From: Inpatient Planned Operative Procedure/s: Right Total Yaya Arthroplasty Consent for Planned Operative Procedure(s) Verified: Yes Verified Documents: Surgical Consent - NPO Status Verified Time NPO: 00:00 - Chart Verification Results Verified: CBC, BMP - Airway Assessment C-Spine Mobility Assessed: Yes TMJ Mobility Assessed: No Dentition: Poor Dentition - Neurological Assessment Level of Consciousness: Disoriented - Anesthesia Plan Anesthesia Risk discussed: Yes (With Family) Anesthesia Type: General [facility] History Medical History: Reports:: Aneurysm, Atherosclerotic Heart Disease, Coronary Artery Disease, Cerebrovascular Accident, Hyperlipidemia, Hypertension, Myocardial Infarction Denies:: Cancer, Diabetes Mellitus Type 1, Diabetes Mellitus Type 2, Internal Pacemaker, MRSA, Seizures *Have you ever received a pneumonia vaccine?: No *Have you received a flu vaccine this season?: Yes Other Medical History: Reports: Other Anesthesia experience/problems:: no issues Other Surgeries: Yes: No Previous Surgery, Angiogram, Cardiac Catheterization, Cardiac Surgery, Coronary Stent. No: Pacemaker Amputation: No Fractures: No - *Social History Smoking Status: Former smoker Tobacco Type: cigarettes # Packs/Day (cigarettes): 1 Alcohol Intake: never Substance Use Type: denies use *Occupational Status:: retired Housing: house Household Members: spouse *Travel in the last 8 weeks: None Family Hx:: Diabetes, Heart Attack, Hyperlipidemia, Hypertension
--- NOTE | 2022-01-31 20:38 | XR_ITS ---
PROCEDURE INFORMATION: Exam: XR Right Hip Exam date and time: 01/31/2022 8:58 PM Age: 71 years old Clinical indication: Device placement; Other: Right hip ernst-arthroplasty in or; Prior surgery; Surgery date: Post-operative (0-2 days); Surgery type: Right hip ernst arthroplasty, portable hip and pelvis done in or. TECHNIQUE: Imaging protocol: XR Right hip. Views: 2 or 3 views hip with pelvis when performed. COMPARISON: CR XR HIP RT 2-3V W/PELVIS 01/30/2022 2:44 PM FINDINGS: Bones/joints: Postsurgical changes in the right hip with intramedullary femoral stem in place. Prosthesis femoral head is not identified at this time. No acute fracture. Soft tissues: Soft tissue defect in the right hip. IMPRESSION: Postsurgical changes in the right hip as above.
--- NOTE | 2022-01-31 21:44 | XR_ITS ---
PROCEDURE INFORMATION: Exam: XR Right Hip Exam date and time: 01/31/2022 10:39 PM Age: 71 years old Clinical indication: Device placement; Other: Post op right hip ernst-arthroplasty; Prior surgery; Surgery date: Post-operative (0-2 days); Additional info: S/P right hip hemiarthroplasty, exam done portable in pacu immediately after coming out of operating room. TECHNIQUE: Imaging protocol: XR Right hip. Views: 2 or 3 views hip with pelvis when performed. COMPARISON: CR XR HIP RT 2-3V W/PELVIS 01/31/2022 8:58 PM FINDINGS: Bones/joints: Total right hip arthroplasty in place. No acute fracture. No hardware complication. Normal anatomic alignment. Soft tissues: Soft tissue gas overlying the right hip. IMPRESSION: No acute findings. Postsurgical changes as above.
--- NOTE | 2022-01-31 21:45 | SUR.OPER ---
2118 family provided with an update
--- NOTE | 2022-01-31 21:45 | HMH.OPNOTE ---
Date of procedure: 01/31/22 Pre-op Diagnosis:: right femoral neck fracture Post-op Diagnosis:: same Procedure performed:: 51128: Open treatment right femoral neck fracture, via right hip hemiarthroplasty Surgeon:: Damien Hawk JR, MD Expanded Function Dental Assistant(s):: Zully Saravia PA-C Anesthesia: GETA Estimated blood loss (mL): 100 Operative findings:: Trial and final prosthesis stable and sleeping position, at 90 degrees flexion past 45 degrees internal rotation. Implants: [employer] Polar stem, standard offset, size 5 with collar, 51 mm outer diameter ulcer bipolar head, 28 mm outer diameter inner bipolar head. Operative note:: 71-year-old female with right femoral neck fracture as a result of a ground-level fall. She was alert to person but otherwise disoriented. I had a discussion with her family regarding further management, recommended right hip hemiarthroplasty to allow for early mobilization. We discussed risk benefits of surgery including pain, bleeding, infection, damage to adjacent structures, need for further surgery, periprosthetic fracture, prosthetic joint dislocation, wound healing complications, loss of limb, . The patient's family expressed verbal consent and written consent was obtained for the above procedure. Patient was identified in preoperative holding. Operative site was marked in indelible ink. History, physical, consent were reviewed and updated. Patient was surrendered to the anesthesia team, taken to the operative suite. Anesthesia was induced. Patient was then placed in the lateral decubitus position on a well-padded operative table. All bony prominences were padded and an axillary roll was placed. The operative extremity was prepped and draped in the usual sterile fashion. The operative team donned sterile gowns and gloves and a timeout was called. All in attendance agreed regarding the patient's identity, procedure, operative site. Weight-based dose of antibiotics was given prior to incision. A skin maker was then used to deanne all bony prominences. Skin incision was then carried out extending from the greater trochanter in a curvilinear fashion posteriorly across the buttocks. I incised the skin with a scalpel, then using a Bovie dissected through tissues. The fascia obdulio was incised utilizing Metzenbaum scissors. This was taken down to the bursa, which was removed utilizing a rongeur. Utilizing a periosteal elevator as well as the sponge, the fat was then freed from the short external rotators of the left hip after these were placed and stretched. The sciatic nerve was protected. Bovie was used to remove the short external rotators from the greater trochanter, which revealed the joint capsule. His were tagged for later repair. The capsule was cleared and incised utilizing a T-shape incision. A fracture hematoma was noted upon entering the joint capsule as well as the femoral neck fracture. A cork screw was then used to remove the fractured femoral head, which was given to the wildlife biology technician which was sized on the back table. All bony remnants were then removed from the acetabulum and surrounding soft tissue with a rongeur. Acetabulum was then inspected and found to be clear. Attention was then turned to the proximal femur where a cutting tunnel was used to deanne the femur for the femoral neck cut. A sagittal saw was then used to make the femoral cut. Box osteotome was then used to remove the bone from proximal femur. A femoral neck elevator was utilized. Next, attention was turned to broaching. Initially, a small broach was placed, first making efforts to lateralize the broach then the femoral canal. Next, the trial components were inserted consisting of the above-mentioned component sizes. The hip was taken through range of motion and tested to adduction, internal and external rotations as well as with a shuck and a posterior directed force on a flexed tip. It was noted that these size were stable through the
--- NOTE | 2022-01-31 22:12 | P.PN_ITS ---
[facility] Anesthesia Record Part I Intake, IV Amount: 1,000 Estimated blood loss (mL): 100 Urine output (mL): 100 Blood Pressure: 98/67 SaO2: 99 Pulse Rate: 98 Respiratory Rate: 16 Temperature: 97.3 F Patient is:: Drowsy Stable to PACU at:: 22:03
--- NOTE | 2022-01-31 23:02 | PC.NURSE ---
PT BACK TO FLOOR @ THIS TIME
--- NOTE | 2022-01-31 23:09 | SUR.PHASEI ---
2250 Detailed report given to Alonzo Schaffer med/neurosurgery physician. 2300 Pt transported to med/surg floor via bed. Vitals stable. Pt resting comfortably. Pt left in care of elizabeth Hernandez/neurosurgery physician and DEREK at pt's bedside.
[2022-02-01] VITALS (14 sets, daily range): BP systolic 99–160; BP diastolic 60–96; PULSE 86–118; RESP 15–22; TEMP 36.1–37.6; O2SAT 94–100
--- NOTE | 2022-02-01 06:13 | HMH.ANESII ---
[facility] Anesthesia Record Part II Discharge Time: 23:00 Destination: 203 PACU nurse assessment reviewed?: Yes Patient Condition:: Good Anesthesia Complications:: None none Swallowing reflex intact?: Yes Cyanosis?: No Blood Pressure: 99/64 Pulse Rate: 91 Temperature: 97.3 F Mental Status: Confused and Disoriented Pain level:: 0 Nausea and/or vomitting:: None Intake, IV Amount: 0
[2022-02-01 07:46] LABS: Basophils # 0.1 K/mm3 (0-0.2); Basophils % 0.7 % (0.1-2.0); Eosinophils % 0.4 % (0.1-12.0); Hematocrit 37.3 % (37.0-47.0); Hemoglobin 11.9 g/dL (12.2-16.2); Lymphocytes # 0.8 K/mm3 (0.7-4.5); Lymphocytes % 10.7 % (10-50); Mean Corpuscular Hemoglobin 30.2 pg (27.0-31.2); Mean Corpuscular Volume 94.3 fl (81-99); Mean Platelet Volume 9.7 fl (7.4-10.4); Monocytes # 0.5 K/mm3 (0.1-1.0); Monocytes % 7.1 % (1.7-9.3); Neutrophils # 5.6 K/mm3 (1.8-7.8); Neutrophils % 80.9 % (37.0-80.0); Platelet Count 149 K/mm3 (142-424); Red Blood Count 3.95 M/mm3 (4.20-5.40); Red Cell Distribution Width 15.4 % (11.5-17.5)
[2022-02-01 08:03] LABS: Anion Gap 8.3 mEq/L (5-15); Blood Urea Nitrogen 23 mg/dl (7-17); Calcium 8.2 mg/dl (8.4-10.2); Carbon Dioxide 24 mmol/L (22.0-30.0); Chloride 109 mmol/L (98-107); Creatinine Clearance Estimated 43 mL/min (50-200); Estimated Glomerular Filt Rate 54 ml/min (>60); GFR (African American) 66 ML/MIN (>60); Glucose 118 mg/dl (74-100); Potassium 4.3 mmoL/L (3.5-5.1); Sodium 137 mmol/L (136-145)
--- NOTE | 2022-02-01 09:22 | PC.NURSE ---
unable to get oxygen level. PT refused. Patients daughter also refused.
--- NOTE | 2022-02-01 09:39 | DIET.NUTRFU ---
Addendum entered by Leigh Ellington RD, LD 02/01/22 15:38: Spoke to nursing staff after lunch and patient still not alert enough for meal intake. Original Note: RD rounded with provider today. Daughter very concerned about her mother not getting a breakfast tray. Patient is not alert enough to eat at this time. Increased confusion and some resistance to care. IVF is in place. Ordered clear liquids to determine tolerance. She does have UTI and morphine in place which may be contributing to mental status
--- NOTE | 2022-02-01 13:10 | HMH.ORTHPN ---
Subjective Date: 02/01/22 Time: 11:30 Principal diagnosis: s/p right bipolar hemiarthroplasty Interval history: Patient is a 71-year-old female admitted to the acute inpatient service following an uneventful right bipolar hemiarthroplasty yesterday 01/31/2022. Today the patient is postop day #1. This morning the patient is lying comfortably in bed and her daughter is present at the bedside. The patient has been acutely confused and is unable to respond verbally to my questioning, she only continues to repeat the word no. Per the patient's daughter, she has complained of pain in her right hip. She states that physical therapy came to evaluate the patient this morning, but the she was agitated and uncooperative at that time; she has not yet ambulated. She is not currently eating or drinking much. She denies any specific concerns/complaints at this time. PN: Obj Ex Vital signs: Temp Pulse Resp BP Pulse Ox 97.8 F 114 H 22 159/92 H 94 L 02/01/22 12:00 02/01/22 12:00 02/01/22 12:00 02/01/22 12:00 02/01/22 12:00 - Constitutional no acute distress, agitated - Routine HEENT Exam Head: Present: normocephalic, atraumatic Eye: Present: EOMI, PERRL ENT: Present: mucous membranes moist - Routine Neck Exam Present: supple, full ROM, trachea midline. Absent: JVD, lymphadenopathy - Routine Respiratory Exam Absent: accessory muscle use, respiratory distress Comments: Symmetric chest movement - Routine Cardiovascular Exam Present: RRR. Absent: JVD Comments: Normal peripheral pulses - Routine Abdominal Exam Present: soft. Absent: tenderness - Routine Extremities Exam Present: pulses intact, normal capillary refill Comments: Upon examination of the lower extremities: The limb lengths are equal. Dressings present over the right hip are clean, dry, and intact. No evidence of drainage or bleeding noted. Attempted movements of the right hip are somewhat painful. Thigh and calf are soft nontender; Homans' sign is negative. Posterior tibial pulse 1+; capillary refill is brisk. Sensation to light touch unable to be assessed due to patient's altered mental status. Diagnostic imaging: Postoperative x-ray performed 01/31/2022 at [facility] reviewed along with radiologist report. X-ray demonstrates a right hip status post hemiarthroplasty with orthopedic components in satisfactory alignment. No evidence of orthopedic complications noted. Radiologist report is as follows: FINDINGS: Bones/joints: Total right hip arthroplasty in place. No acute fracture. No hardware complication. Normal anatomic alignment. Soft tissues: Soft tissue gas overlying the right hip. IMPRESSION: No acute findings. Postsurgical changes as above. - Routine Skin Exam Present: intact, warm, normal turgor. Absent: cyanosis, erythema, lesions, jaundice - Routine Neurological Exam Present: alert, altered mental status - Urinary Catheter Management Gann Cath placed during this visit: no Urethral indwelling: Yes Progress Note: A&P (1) Closed right hip fracture Status: Acute (2) Elevated troponin Status: Acute (3) Fall Status: Acute Assessment and Plan for All Diagnoses:: I have reviewed the clinical findings and procedure with the patient and her daughter. I have given her printed copies of her postoperative x-rays. Dressings present over the right hip are clean, dry, intact. No evidence of drainage or bleeding noted. Plan to continue PT/OT; the patient may ambulate weightbearing as tolerated on the right leg with the use of a walker. Continue standard precautions for a posterior approach to the hip. I have advised the patient and her daughter to continue use of the abduction wedge when lying down/sleeping for 6 weeks postoperatively. Continue DVT prophylaxis; patient may resume her regular dose of Xarelto beginning george
--- NOTE | 2022-02-01 13:51 | HMH.ACPN2 ---
Internal Medicine - PN: Subj *Date: 02/01/22 *Time: 08:51 Interval history: 71-year-old female patient resting in bed quietly in no visible distress, she does not respond to verbal commands or questioning. Daughter is at bedside. Patient hands are clenched, she appears in no distress but will moan when touched in various places. Elastoplast dressing dry and intact to right hip. Discussed possible reasons for patient's altered mental status with daughter, UTI with culture revealing Klebsiella pneumonia receiving ceftriaxone, anesthesia morphine, and traumatic event. Daughter reports patient has a past CVA. Ortho performed and open treatment right femoral neck fracture, via right hip hemiarthroplasty yesterday Exam Vital signs and Labs for Last 24 Hours: Temp Pulse Resp BP Pulse Ox 97.8 F 114 H 22 159/92 H 94 L 02/01/22 12:00 02/01/22 12:00 02/01/22 12:00 02/01/22 12:00 02/01/22 12:00 Laboratory Results - last 24 hr 01/31/22 17:16: Blood Type A Positive, Antibody Screen Negative 02/01/22 07:35: WBC 7.0, RBC 3.95 L, Hgb 11.9 L, Hct 37.3, MCV 94.3, MCH 30.2, MCHC 32.0, RDW 15.4, Plt Count 149, MPV 9.7, Neut % (Auto) 80.9 H, Lymph % (Auto) 10.7, [place] % (Auto) 7.1, Eos % (Auto) 0.4, Baso % (Auto) 0.7, Neut # (Auto) 5.6, Lymph # (Auto) 0.8, [place] # (Auto) 0.5, Eos # (Auto) 0.0, Baso # (Auto) 0.1 02/01/22 07:35: Sodium 137, Potassium 4.3, Chloride 109 H, Carbon Dioxide 24, Anion Gap 8.3, BUN 23 H, Creatinine 1.00, Estimated Creat Clear 43, Estimated GFR 54 L, Est GFR ( Amer) 66 D, Glucose 118 H, Calcium 8.2 L I & O for Last 24 hours: Intake & Output 01/29/22 01/30/22 01/31/22 02/01/22 23:59 23:59 23:59 23:59 Intake Total 1000 / 1000 852 / 852 Output Total 1425 / 2125 1300 / 1300 Balance -425 / -1125 -448 / -448 Weight 118 lb 14.4 oz 118 lb 13.266 oz Microbiology Reports for the Last 24 Hours: Microbiology 01/30/22 15:33 Urine,Catheterized Urine Culture - Final Klebsiella pneumoniae - Constitutional no acute distress - *Routine HEENT Exam Head: Present: normocephalic Eye: Present: EOMI ENT: Present: mucous membranes moist - *Routine Neck Exam Present: trachea midline. Absent: tracheal deviation - *Routine Respiratory Exam Present: CTA bilaterally. Absent: accessory muscle use - *Routine Cardiovascular Exam Present: RRR - *Routine Abdominal Exam Present: soft, normoactive bowel sounds. Absent: distended, firm - *Routine Extremities Exam Present: pulses intact. Absent: cyanosis, clubbing - *Routine Skin Exam Present: dry, wounds. Absent: intact, cyanosis, erythema Comments: Right hip with Elastoplast dressing clean/dry/intact - *Routine Neurological Exam Present: altered mental status - Routine Psychiatric Exam Present: unable to assess Assessment and Plan (1) Closed right hip fracture Status: Acute Qualifiers: Encounter type: initial encounter Qualified Code(s): S72.001A - Fracture of unspecified part of neck of right femur, initial encounter for closed fracture Category: Medical Code(s): S72.001A - Fracture of unspecified part of neck of right femur, initial encounter for closed fracture (2) Elevated troponin Status: Acute Category: Medical Code(s): R77.8 - Other specified abnormalities of plasma proteins (3) Fall Status: Acute Category: Medical Code(s): W19.XXXA - Unspecified fall, initial encounter (4) UTI due to Klebsiella species Status: Acute Category: Medical Code(s): N39.0 - Urinary tract infection, site not specified; B96.89 - Other specified bacterial agents as the cause of diseases classified elsewhere (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
--- NOTE | 2022-02-01 18:46 | PC.NURSE ---
Pt has been confused and agitated this shift. IV morphine administered per mar for pt indication of pain. Facial grimacing, moaning and restless noted before administering morphine. Pt became more confused, unable to recognize her daughter or son but did appear to be in less pain. I spoke w/Zully LOYA from ortho to request non narcotic pain reliever, she ordered 15mg of IV toradol q6hr prn. One dose administered with favorable results noted. She has been taking in small sips of water and tolerating but still unable to take in measurable amounts. Leg brace noted to RLE, abductor pillow in place. Her hardy is to bedside draining clear, yellow urine. She remains on 2L NC at this time.
[2022-02-02] VITALS: BP 136/77; PULSE 104; RESP 18; TEMP 36.8; O2SAT 95
[2022-02-02 04:00] VITALS: BP 132/81; PULSE 85; RESP 17; TEMP 36.8; O2SAT 91
[2022-02-02 05:00] VITALS: BMI 21.0
[2022-02-02 07:02] LABS: Basophils % 0.4 % (0.1-2.0); Eosinophils % 0.8 % (0.1-12.0); Hematocrit 34.8 % (37.0-47.0); Lymphocytes # 1.2 K/mm3 (0.7-4.5); Lymphocytes % 21.7 % (10-50); Mean Corpuscular HGB Conc 31.7 g/dL (31.8-35.4); Mean Corpuscular Volume 94.7 fl (81-99); Mean Platelet Volume 9.5 fl (7.4-10.4); Monocytes # 0.4 K/mm3 (0.1-1.0); Monocytes % 7.3 % (1.7-9.3); Neutrophils # 3.8 K/mm3 (1.8-7.8); Neutrophils % 69.8 % (37.0-80.0); Platelet Count 132 K/mm3 (142-424); Red Blood Count 3.67 M/mm3 (4.20-5.40); Red Cell Distribution Width 15.5 % (11.5-17.5); White Blood Count 5.4 K/mm3 (4.8-10.8)
[2022-02-02 07:16] LABS: Chloride 108 mmol/L (98-107); Potassium 3.9 mmoL/L (3.5-5.1); Sodium 136 mmol/L (136-145)
[2022-02-02 07:19] LABS: Anion Gap 8.9 mEq/L (5-15); Calcium 7.8 mg/dl (8.4-10.2); Carbon Dioxide 23 mmol/L (22.0-30.0); Glucose 77 mg/dl (74-100)
[2022-02-02 07:24] LABS: Blood Urea Nitrogen 22 mg/dl (7-17); Creatinine Clearance Estimated 43 mL/min (50-200); Estimated Glomerular Filt Rate 70 ml/min (>60); GFR (African American) 85 ML/MIN (>60)
[2022-02-02 08:00] VITALS: BP 125/99; PULSE 90; RESP 18; TEMP 37.3; O2SAT 90
--- NOTE | 2022-02-02 09:29 | HMH.ACPN2 ---
Internal Medicine - PN: Subj *Date: 02/02/22 *Time: 08:15 Interval history: pt alert and talking states she feels better today Exam Vital signs and Labs for Last 24 Hours: Temp Pulse Resp BP Pulse Ox 99.1 F 90 18 125/99 H 90 L 02/02/22 08:00 02/02/22 08:00 02/02/22 08:00 02/02/22 08:00 02/02/22 08:00 Laboratory Results - last 24 hr 02/02/22 06:27: WBC 5.4, RBC 3.67 L, Hgb 11.0 L, Hct 34.8 L, MCV 94.7, MCH 30.0, MCHC 31.7 L, RDW 15.5, Plt Count 132 L, MPV 9.5, Neut % (Auto) 69.8, Lymph % (Auto) 21.7, [place] % (Auto) 7.3, Eos % (Auto) 0.8, Baso % (Auto) 0.4, Neut # (Auto) 3.8, Lymph # (Auto) 1.2, [place] # (Auto) 0.4, Eos # (Auto) 0.0, Baso # (Auto) 0.0 02/02/22 06:27: Sodium 136, Potassium 3.9, Chloride 108 H, Carbon Dioxide 23, Anion Gap 8.9, BUN 22 H, Creatinine 0.80, Estimated Creat Clear 43, Estimated GFR 70, Est GFR ( Amer) 85 D, Glucose 77 D, Calcium 7.8 L I & O for Last 24 hours: Intake & Output 01/30/22 01/31/22 02/01/22 02/02/22 11:59 11:59 11:59 11:59 Intake Total 0 / 0 1852 / 1852 775 / 775 Output Total 800 / 800 1925 / 1925 900 / 900 Balance -800 / -800 -73 / -73 -125 / -125 Weight 118 lb 14.4 oz 118 lb 13.266 oz 118 lb 13.266 oz Microbiology Reports for the Last 24 Hours: Microbiology 01/30/22 14:19 Blood Blood Culture - Preliminary NO GROWTH AFTER 48 HOURS 01/30/22 17:40 Blood Blood Culture - Preliminary NO GROWTH AFTER 48 HOURS 01/30/22 15:33 Urine,Catheterized Urine Culture - Final Klebsiella pneumoniae - Constitutional no acute distress, thin - *Routine HEENT Exam Head: Present: normocephalic Eye: Present: PERRL ENT: Present: mucous membranes moist - *Routine Neck Exam Present: supple. Absent: lymphadenopathy - *Routine Respiratory Exam Present: CTA bilaterally - *Routine Cardiovascular Exam Present: RRR - *Routine Abdominal Exam Present: soft, normoactive bowel sounds. Absent: tenderness - *Routine Extremities Exam Absent: cyanosis, clubbing, edema Comments: dressing c/d/i - *Routine Skin Exam Present: warm. Absent: rash Comments: dressing c/d/i - *Routine Neurological Exam Present: alert, oriented X3 Assessment and Plan (1) Closed right hip fracture Status: Acute Qualifiers: Encounter type: initial encounter Qualified Code(s): S72.001A - Fracture of unspecified part of neck of right femur, initial encounter for closed fracture Category: Medical Code(s): S72.001A - Fracture of unspecified part of neck of right femur, initial encounter for closed fracture (2) Elevated troponin Status: Acute Category: Medical Code(s): R77.8 - Other specified abnormalities of plasma proteins (3) Fall Status: Acute Category: Medical Code(s): W19.XXXA - Unspecified fall, initial encounter - Assessment and plan all Dx Assessment and Plan for all problems:: rounded with dr barajas all orders per dr barajas pt/ot hayley marx reg diet
--- NOTE | 2022-02-02 09:39 | HMH.PTEV ---
Physical Therapy Evaluation Rehab PT IP Evaluation Start: 01/31/22 21:42 Freq: ONCE Status: Active Protocol: Document 02/02/22 09:16 PHORNE (Rec: 02/02/22 09:38 PHORNE [id number]) Subjective/History History History 71 yowf adm to [facility] after fall at home and found down at home . Pt suffered R hip fx and is now post-op day 2 S/P R hip hemiarthroplasty. Recovery was complicated by findings of UTI and significant confusion yesterday. She reports she lives with daughter and uses a cane for ambulation at baseline. Subjective Subjective Pt less confused today, but oriented to person only. Pt remians significantly labile and follows commands ~ 50%. Rehab PT IP Eval Objective Appearance Patient Behavior Appropriate,Crying,Guarded, Confused Patient Orientation Person Difficulty following instructions mild Speech Pattern Clear Ambulation Patient Able to Ambulate No Balance Ability to Arise Able, uses arms to help Sitting Balance Steady, safe Standing Balance Unsteady Dynamic Sitting Balance Ability Fair Dynamic Standing Balance Ability Poor Transfers Bed Transfer Ability Maximum x 1 (75% assist) Chair Transfer Ability Maximum x 1 (75% assist) Sit to Stand Bed Transfer Ability Maximum x 1 (75% assist) Sit to Stand Chair Transfer Ability Maximum x 1 (75% assist) Rehab PT IP prob,goals,plan Problems Date of Evaluation: 02/02/22 PT IP Problems Bed Mobility,Transfers,Gait, Balance,Self care Rehab Potential Rehab Potential Good Plan PT Intervention Plan Bed Mobility,Transfers,Gait, Balance,Self care,Therapeutic Exercise PT Plan Frequency BID Duration LOS Discharge Goals Bed Transfer Ability Moderate x 1 (50% assist) Sit to Stand Chair Transfer Ability Moderate x 1 (50% assist) Ambulation Assistive Device Rolling Walker Ambulation Distance (feet) 5 Discharge Plan PT Discharge Plan Pt is most appropriate for rehab placement at this time. G -code Required No Eval Complexity Eval Charge Codes 45266 - Moderate Complexity PH
--- NOTE | 2022-02-02 10:27 | HMH.ORTHPN ---
Subjective Date: 02/02/22 Time: 09:45 Principal diagnosis: s/p right bipolar hemiarthroplasty Interval history: Patient is a 71-year-old female admitted to the acute inpatient service following an uneventful right bipolar hemiarthroplasty on 01/31/2022. Today the patient is postop day #2. This morning the patient is sitting comfortably in a chair at the bedside and her daughter is present. This morning the patient is still somewhat sleepy and confused, but is alert and able to verbally respond to my questioning and follow verbal commands. She reports that she was able to sleep well last night and is tolerating some oral intake, she has been drinking water and eating some applesauce. She reports pain in her right hip, but states that it is well controlled with pain medication. This morning she was able to sit in the bedside chair with the assistance of physical therapy but has not yet ambulated. She denies chest pain, shortness of breath, palpitations, nausea, vomiting, or distal tingling/numbness. She denies any other symptoms or concerns at this time. PN: Obj Ex Vital signs: Temp Pulse Resp BP Pulse Ox 99.1 F 90 18 125/99 H 90 L 02/02/22 08:00 02/02/22 08:00 02/02/22 08:00 02/02/22 08:00 02/02/22 08:00 - Constitutional no acute distress, cooperative - Routine HEENT Exam Head: Present: normocephalic, atraumatic Eye: Present: EOMI, PERRL ENT: Present: mucous membranes moist - Routine Neck Exam Present: supple, full ROM, trachea midline. Absent: JVD, lymphadenopathy - Routine Respiratory Exam Absent: accessory muscle use, respiratory distress Comments: Symmetric chest movement, able to speak in complete sentences - Routine Cardiovascular Exam Present: RRR Comments: Normal peripheral pulses - Routine Abdominal Exam Present: soft. Absent: tenderness - Routine Extremities Exam Present: pulses intact, normal capillary refill Comments: Upon examination of the lower extremities: The limb lengths are equal. Dressings present over the right hip are clean, dry, and intact. No evidence of drainage or bleeding noted. There is a knee immobilizer in place. Attempted movements of the right hip are somewhat painful. Thigh and calf are soft nontender; Homans' sign is negative. Posterior tibial pulse 1+; capillary refill is brisk. Sensation to light touch is grossly intact throughout. Patient is actively mobilizing the ankle, foot, and toes. - Routine Skin Exam Present: intact, warm, normal turgor. Absent: cyanosis, erythema, lesions, jaundice - Routine Neurological Exam Present: alert, altered mental status, moving all extremities, normal tone. Absent: sensory deficit, motor deficit - Routine Psychiatric Exam Present: cooperative - Urinary Catheter Management Gann Cath placed during this visit: no Urethral indwelling: Yes Progress Note: A&P (1) Closed right hip fracture Status: Acute (2) Elevated troponin Status: Acute (3) Fall Status: Acute Assessment and Plan for All Diagnoses:: I have again reviewed the clinical findings and procedure with the patient and her daughter. Overall she is doing well from an orthopedic standpoint; this morning she is much more alert and is able to respond verbally to my questioning. Dressings present over the right hip are clean, dry, intact. No evidence of drainage or bleeding noted. Plan to continue PT/OT; the patient may ambulate weightbearing as tolerated on the right leg with the use of a walker. Continue standard precautions for a posterior approach to the hip and continue use of the knee immobilizer. Discontinue IV fluids today. I have advised the patient and her daughter to continue use of the abduction wedge when lying down/sleeping for 6 weeks postoperatively. Continue DVT prophylaxis; patient may resume her regular home dose of Xarelto today. Continue rest, ice, elevation, activity modification, and pain medication as needed. A
--- NOTE | 2022-02-02 12:11 | DIET.NUTRFU ---
Saw patient reviewed dietary hx at home, Fairly good appetite prior to hospital visit. Daughter helps with meals at home. Patient makes her own breakfast. Diet was upgrade to regular, took her lunch order. Independent with meal intake. Disliked the ensure clear but willing to try ensure chocolate to help until appetite returns. Denied GI distress and wt is stable
--- NOTE | 2022-02-02 13:01 | PC.NURSE ---
PT IS SITTING UP IN THE CHAIR WITH FAMILY AT BEDSIDE. PT IS ALERT TO SELF ONLY AND IS ABLE TO ANSWER SIMPLE QUESTIONS AND FOLLOW SIMPLE COMMANDS. PT WAS ABLE TO TELL ME HER NAME/ THIS MORNING BUT THINKS SHE IS AT A SNF B/C SHE HAD A STROKE. PT WAS ABLE TO GET UP TO THE CHAIR WITH PHYSICAL THERAPY BUT WAS UNABLE TO AMBULATE. WHILE GETTING UP PT CONTINUOUSLY STATED NO,NO,NO BUT WAS ABLE TO BEAR WEIGHT WITH ASSISTANCE WHILE STANDING. WHILE TAKING MORNING MEDS PT HAD TO CONTINUOUSLY BE ASKED TO SWALLOW APPLESAUCE THAT SHE WAS HOLDING IN HER MOUTH AND ATTEMPTING TO SPIT OUT. MEDICATED PER MAR FOR DISCOMFORT. PT NEEDS ENCOURAGEMENT TO EAT AND DRINK. DRESSING TO RIGHT HIP C/D/I. KNEE IMMOBILIZER IN PLACE. LUNG SOUNDS CLEAR. ABDOMEN SOFT/NON TENDER WITH ACTIVE BOWEL SOUNDS. WILL CONTINUE TO MONITOR.
--- NOTE | 2022-02-02 14:43 | PC.NURSE ---
rounded on patient, family at bedside. patient was resting but awoke upon entering room. no concerns or needs voiced from family and patient.
[2022-02-02 16:00] VITALS: BP 146/101; PULSE 81; RESP 22; TEMP 37.1; O2SAT 91
--- NOTE | 2022-02-02 16:53 | PC.NURSE ---
four o'clock vitals Patient's family refused an oral temperature. They are afraid it will gag her.
[2022-02-02 19:49] VITALS: BP 114/72; PULSE 81; RESP 16; TEMP 36.7; O2SAT 91
[2022-02-03 04:22] VITALS: BP 131/69; PULSE 72; RESP 16; TEMP 36.7; O2SAT 91
[2022-02-03 04:26] VITALS: BMI 23.3
--- NOTE | 2022-02-03 04:48 | PC.NURSE ---
Pt a + o x3. Unable to recall year, day, month. Pt moaning out in pain at beginning of shift rating 8/10. Dillard administered per JAN, with post admin assess, pt continued to c/o pain rating it 10/10. Tordol adminstered per JAN with favorable results. DSG to right hip has remained CDI. Pt has rested well t/o shift. SCDS in place to left leg with int. compression. Call light within reach.
[2022-02-03 08:00] VITALS: BP 136/83; PULSE 80; RESP 20; TEMP 36.6; O2SAT 92
[2022-02-03 08:27] LABS: Chloride 109 mmol/L (98-107); Potassium 3.6 mmoL/L (3.5-5.1); Sodium 139 mmol/L (136-145)
[2022-02-03 08:28] LABS: Basophils # 0.1 K/mm3 (0-0.2); Basophils % 1.7 % (0.1-2.0); Eosinophils # 0.2 K/mm3 (0.0-0.4); Eosinophils % 2.5 % (0.1-12.0); Hematocrit 36.9 % (37.0-47.0); Hemoglobin 11.8 g/dL (12.2-16.2); Lymphocytes # 1.4 K/mm3 (0.7-4.5); Lymphocytes % 20.5 % (10-50); Mean Corpuscular Volume 93.9 fl (81-99); Mean Platelet Volume 9.7 fl (7.4-10.4); Monocytes # 0.5 K/mm3 (0.1-1.0); Monocytes % 6.8 % (1.7-9.3); Neutrophils # 4.6 K/mm3 (1.8-7.8); Neutrophils % 68.5 % (37.0-80.0); Platelet Count 175 K/mm3 (142-424); Red Blood Count 3.92 M/mm3 (4.20-5.40); Red Cell Distribution Width 15.6 % (11.5-17.5); White Blood Count 6.7 K/mm3 (4.8-10.8)
[2022-02-03 08:30] LABS: Anion Gap 6.6 mEq/L (5-15); Blood Urea Nitrogen 26 mg/dl (7-17); Calcium 8.1 mg/dl (8.4-10.2); Carbon Dioxide 27 mmol/L (22.0-30.0); Creatinine Clearance Estimated 43 mL/min (50-200); Estimated Glomerular Filt Rate 49 ml/min (>60); GFR (African American) 59 ML/MIN (>60); Glucose 87 mg/dl (74-100)
--- NOTE | 2022-02-03 08:53 | HMH.ACPN2 ---
Internal Medicine - PN: Subj *Date: 02/03/22 *Time: 08:53 Interval history: Patient is more alert this morning. Hemoglobin is steady at 11.8, normal kidney function. Urine culture growing out Klebsiella city of to Rocephin. Lead culture is negative. CT of the brain shows no acute process T-max 99.7 Complained of some pain during the night, relieved with [place]. Making slow progress with PT Exam Vital signs and Labs for Last 24 Hours: Temp Pulse Resp BP Pulse Ox 97.8 F 80 20 136/83 92 L 02/03/22 08:00 02/03/22 08:00 02/03/22 08:00 02/03/22 08:00 02/03/22 08:00 Laboratory Results - last 24 hr 02/03/22 08:05: WBC 6.7, RBC 3.92 L, Hgb 11.8 L, Hct 36.9 L, MCV 93.9, MCH 30.0, MCHC 32.0, RDW 15.6, Plt Count 175 D, MPV 9.7, Neut % (Auto) 68.5, Lymph % (Auto) 20.5, [place] % (Auto) 6.8, Eos % (Auto) 2.5, Baso % (Auto) 1.7, Neut # (Auto) 4.6, Lymph # (Auto) 1.4, [place] # (Auto) 0.5, Eos # (Auto) 0.2, Baso # (Auto) 0.1 02/03/22 08:05: Sodium 139, Potassium 3.6, Chloride 109 H, Carbon Dioxide 27, Anion Gap 6.6, BUN 26 H, Creatinine 1.10 H D, Estimated Creat Clear 43, Estimated GFR 49 L, Est GFR ( Amer) 59 D, Glucose 87, Calcium 8.1 L I & O for Last 24 hours: Intake & Output 01/31/22 02/01/22 02/02/22 02/03/22 23:59 23:59 23:59 23:59 Intake Total 1000 / 1000 1507 / 1507 420 / 420 120 / 120 Output Total 1425 / 2125 1300 / 2200 1750 / 1870 120 / 120 Balance -425 / -1125 207 / -693 -1330 / -1450 0 / 0 Weight 118 lb 13.266 oz 118 lb 13.266 oz 132 lb - Constitutional no acute distress, chronically ill appearing - *Routine HEENT Exam Head: Present: normocephalic Eye: Present: EOMI, PERRL ENT: Present: mucous membranes moist - *Routine Neck Exam Present: supple. Absent: lymphadenopathy - *Routine Respiratory Exam Present: CTA bilaterally - *Routine Cardiovascular Exam Present: RRR - *Routine Abdominal Exam Present: soft, normoactive bowel sounds. Absent: tenderness - *Routine Extremities Exam Present: tenderness. Absent: cyanosis, clubbing, edema - *Routine Skin Exam Present: warm. Absent: rash - *Routine Neurological Exam Present: alert, abnormal gait, vision grossly intact, hearing grossly intact Assessment and Plan (1) Closed right hip fracture Status: Acute Qualifiers: Encounter type: initial encounter Qualified Code(s): S72.001A - Fracture of unspecified part of neck of right femur, initial encounter for closed fracture Category: Medical Code(s): S72.001A - Fracture of unspecified part of neck of right femur, initial encounter for closed fracture (2) Elevated troponin Status: Acute Category: Medical Code(s): R77.8 - Other specified abnormalities of plasma proteins (3) Fall Status: Acute Category: Medical Code(s): W19.XXXA - Unspecified fall, initial encounter - Assessment and plan all Dx Assessment and Plan for all problems:: UTI, klebsiella pneumo continue iv rocephin following w/ortho
--- NOTE | 2022-02-03 08:56 | P.PN_ITS ---
Internal Medicine - PN: Subj *Date: 02/03/22 *Time: 08:56 Exam Vital signs and Labs for Last 24 Hours: Temp Pulse Resp BP Pulse Ox 97.8 F 80 20 136/83 92 L 02/03/22 08:00 02/03/22 08:00 02/03/22 08:00 02/03/22 08:00 02/03/22 08:00 Laboratory Results - last 24 hr 02/03/22 08:05: WBC 6.7, RBC 3.92 L, Hgb 11.8 L, Hct 36.9 L, MCV 93.9, MCH 30.0, MCHC 32.0, RDW 15.6, Plt Count 175 D, MPV 9.7, Neut % (Auto) 68.5, Lymph % (Auto) 20.5, [place] % (Auto) 6.8, Eos % (Auto) 2.5, Baso % (Auto) 1.7, Neut # (Auto) 4.6, Lymph # (Auto) 1.4, [place] # (Auto) 0.5, Eos # (Auto) 0.2, Baso # (Auto) 0.1 02/03/22 08:05: Sodium 139, Potassium 3.6, Chloride 109 H, Carbon Dioxide 27, Anion Gap 6.6, BUN 26 H, Creatinine 1.10 H D, Estimated Creat Clear 43, Estimated GFR 49 L, Est GFR ( Amer) 59 D, Glucose 87, Calcium 8.1 L I & O for Last 24 hours: Intake & Output 01/31/22 02/01/22 02/02/22 02/03/22 23:59 23:59 23:59 23:59 Intake Total 1000 / 1000 1507 / 1507 420 / 420 120 / 120 Output Total 1425 / 2125 1300 / 2200 1750 / 1870 120 / 120 Balance -425 / -1125 207 / -693 -1330 / -1450 0 / 0 Weight 53.9 kg 53.9 kg 59.874 kg Assessment and Plan (1) Closed right hip fracture Status: Acute Qualifiers: Qualified Code(s): S72.001A - Fracture of unspecified part of neck of right femur, initial encounter for closed fracture Category: Medical Code(s): S72.001A - Fracture of unspecified part of neck of right femur, initial encounter for closed fracture (2) Elevated troponin Status: Acute Category: Medical Code(s): R77.8 - Other specified abnormalities of plasma proteins (3) Fall Status: Acute Category: Medical Code(s): W19.XXXA - Unspecified fall, initial encounter The patient's infection will respond to the chosen ABx?: Yes (K. PNEUMONIAE IN URINE, ROCEPHIN SUSCEPTIBLE) Is the patient receiving the right drug, dose, and route?: Yes Could a more targeted ABx be ordered?: No 5 (UP TO 14 DAYS)
[2022-02-03 16:00] VITALS: BP 134/72; PULSE 78; RESP 22; TEMP 36.6; O2SAT 94
[2022-02-03 20:38] VITALS: BP 132/83; PULSE 91; RESP 18; TEMP 36.8; O2SAT 94
[2022-02-04 04:34] VITALS: BP 136/69; PULSE 80; RESP 16; TEMP 36.8; O2SAT 93
[2022-02-04 05:00] VITALS: BMI 22.0
--- NOTE | 2022-02-04 06:20 | PC.NURSE ---
At beginning of shift tried to assist pt to BSC x 2 assist. Pts legs kept buckling and would not take steps - pt says she is too weak. Assisted back to bed and sarahwick put back on. Family said she was up with PT today and sat up in chair earlier. Was told in report that pt had not been eating much - family brought pt dinner and she ate about 50%. Pt has c/o of pain twice this shift - medicated per MAR with relief. Pt has leg abductor in place and scd on L leg. R hip drsg c/d/i. No other complaints or needs voiced at this time. Call light in reach.
[2022-02-04 06:52] LABS: Eosinophils # 0.2 K/mm3 (0.0-0.4); Lymphocytes # 1.6 K/mm3 (0.7-4.5); White Blood Count 6.1 K/mm3 (4.8-10.8)
[2022-02-04 07:04] LABS: Chloride 111 mmol/L (98-107); Potassium 4.1 mmoL/L (3.5-5.1); Sodium 140 mmol/L (136-145)
[2022-02-04 07:07] LABS: Anion Gap 8.1 mEq/L (5-15); Basophils # 0.1 K/mm3 (0-0.2); Basophils % 1.1 % (0.1-2.0); Blood Urea Nitrogen 28 mg/dl (7-17); Carbon Dioxide 25 mmol/L (22.0-30.0); Creatinine Clearance Estimated 41 mL/min (50-200); Eosinophils % 3.7 % (0.1-12.0); Estimated Glomerular Filt Rate 49 ml/min (>60); GFR (African American) 59 ML/MIN (>60); Lymphocytes % 25.8 % (10-50); Mean Corpuscular HGB Conc 31.6 g/dL (31.8-35.4); Mean Corpuscular Hemoglobin 30.1 pg (27.0-31.2); Mean Corpuscular Volume 95.1 fl (81-99); Mean Platelet Volume 9.4 fl (7.4-10.4); Monocytes # 0.5 K/mm3 (0.1-1.0); Monocytes % 7.7 % (1.7-9.3); Neutrophils # 3.8 K/mm3 (1.8-7.8); Neutrophils % 61.5 % (37.0-80.0); Platelet Count 211 K/mm3 (142-424); Red Blood Count 3.58 M/mm3 (4.20-5.40); Red Cell Distribution Width 15.5 % (11.5-17.5)
[2022-02-04 07:08] LABS: Calcium 7.8 mg/dl (8.4-10.2); Glucose 103 mg/dl (74-100)
[2022-02-04 07:10] LABS: Hemoglobin 10.8 g/dL (12.2-16.2)
[2022-02-04 08:00] VITALS: BP 141/74; PULSE 81; RESP 22; TEMP 36.6; O2SAT 100
--- NOTE | 2022-02-04 08:54 | P.PN_ITS ---
Internal Medicine - PN: Subj *Date: 02/04/22 *Time: 08:54 Interval history: Patient continues to be more alert and cooperative. Labs are stable Ongoing physical therapy, discussed with therapist. Orthopedic course and notes are reviewed Exam Vital signs and Labs for Last 24 Hours: Temp Pulse Resp BP Pulse Ox 98.3 F 80 16 136/69 93 L 02/04/22 04:34 02/04/22 04:34 02/04/22 04:34 02/04/22 04:34 02/04/22 04:34 Laboratory Results - last 24 hr 02/04/22 06:40: WBC 6.1, RBC 3.58 L, Hgb 10.8 L, Hct 34.0 L, MCV 95.1, MCH 30.1, MCHC 31.6 L, RDW 15.5, Plt Count 211, MPV 9.4, Neut % (Auto) 61.5, Lymph % (Auto) 25.8, Lowndes % (Auto) 7.7, Eos % (Auto) 3.7, Baso % (Auto) 1.1, Neut # (Auto) 3.8, Lymph # (Auto) 1.6, Lowndes # (Auto) 0.5, Eos # (Auto) 0.2, Baso # (Auto) 0.1 02/04/22 06:40: Sodium 140, Potassium 4.1, Chloride 111 H, Carbon Dioxide 25, Anion Gap 8.1, BUN 28 H, Creatinine 1.10 H, Estimated Creat Clear 41, Estimated GFR 49 L, Est GFR ( Amer) 59, Glucose 103 H, Calcium 7.8 L I & O for Last 24 hours: Intake & Output 02/01/22 02/02/22 02/03/22 02/04/22 23:59 23:59 23:59 23:59 Intake Total 1507 / 1507 420 / 420 480 / 480 Output Total 1300 / 2200 1750 / 1870 170 / 270 300 / 300 Balance 207 / -693 -1330 / -1450 310 / 210 -300 / -300 Weight 118 lb 13.266 oz 132 lb 124 lb 9 oz - Constitutional no acute distress, cooperative - *Routine HEENT Exam Head: Present: normocephalic Eye: Present: EOMI, PERRL ENT: Present: mucous membranes moist - *Routine Neck Exam Present: supple. Absent: lymphadenopathy - *Routine Respiratory Exam Present: CTA bilaterally - *Routine Cardiovascular Exam Present: RRR - *Routine Abdominal Exam Present: soft, normoactive bowel sounds. Absent: tenderness - *Routine Extremities Exam Absent: cyanosis, clubbing, edema - *Routine Skin Exam Present: warm. Absent: rash - *Routine Neurological Exam Present: alert, vision grossly intact, hearing grossly intact Assessment and Plan (1) Closed right hip fracture Status: Acute Qualifiers: Encounter type: initial encounter Qualified Code(s): S72.001A - Fracture of unspecified part of neck of right femur, initial encounter for closed fracture Category: Medical Code(s): S72.001A - Fracture of unspecified part of neck of right femur, initial encounter for closed fracture (2) Elevated troponin Status: Acute Category: Medical Code(s): R77.8 - Other specified abnormalities of plasma proteins (3) Fall Status: Acute Category: Medical Code(s): W19.XXXA - Unspecified fall, initial encounter - Assessment and plan all Dx Assessment and Plan for all problems:: Continue current regimen, current physical therapy. 5 (UP TO 14 DAYS)
[2022-02-04 15:42] VITALS: BP 110/63; PULSE 75; RESP 20; TEMP 36.6; O2SAT 96
[2022-02-04 19:55] VITALS: BP 122/79; PULSE 76; RESP 18; TEMP 36.4; O2SAT 96
--- NOTE | 2022-02-04 20:40 | PC.NURSE ---
Patient having hard time swallowing pills even in apple sauce. Patient states her throat is sore. Patient states she usually doesn't have issues swallowing food or liquid. Will pass on to morning shift for possibility of swallow evaluation.
[2022-02-05 05:00] VITALS: BMI 22.2
[2022-02-05 05:45] VITALS: BP 160/78; PULSE 79; RESP 16; TEMP 36.6; O2SAT 95
[2022-02-05 08:00] VITALS: BP 155/84; PULSE 88; RESP 22; TEMP 36.4; O2SAT 94
--- NOTE | 2022-02-05 09:31 | DIET.NUTRFU ---
RD saw patient with family at bedside this morning, her meal intake still poor at only 25%, she reports she doesn't likes the food and she isn't hungry. RD reviewed different food choices but she really doesn't feel like eating anything. Family brought in food over weekend and she consumed 50%. She also dislikes the ensure, has tired multiple flavors also tried boost clear and dislikes. Willing to try homemade shake at lunch. Denies any GI distress. Patient reports no weight changes. She was noted to have swallowing issues with pills over weekend. They provided them crushed in applesauce this morning and tolerated well. BANK CLERK consult ordered
--- NOTE | 2022-02-05 09:53 | HMH.ORTHPN ---
Subjective Date: 02/05/22 Time: 09:30 Principal diagnosis: s/p right bipolar hemiarthroplasty Interval history: Patient is a 71-year-old female admitted to the acute inpatient service following an uneventful right bipolar hemiarthroplasty on 01/31/2022. Today the patient is postop day #5. This morning the patient is sitting comfortably in a chair at the bedside and her granddaughter is present. This morning the patient is alert and able to verbally respond to my questioning and follow commands. She reports that she has still not had much of an appetite but has been eating and drinking over the weekend. She does report pain in her right hip, but states that it is well controlled with pain medication. Physical therapy is also present at the bedside this morning and reports that she is making slow progress over the weekend; she has not ambulated but has been standing and pivoting to transfer to the bedside chair and bedside commode. She denies chest pain, shortness of breath, palpitations, nausea, vomiting, fevers, chills, or rigors. She reports intermittent tingling/altered sensation in the anterolateral aspect of the right leg but denies distal numbness/tingling. She denies any other symptoms or concerns at this time. PN: Obj Ex Vital signs: Temp Pulse Resp BP Pulse Ox 97.6 F 88 22 155/84 H 94 L 02/05/22 08:00 02/05/22 08:00 02/05/22 08:00 02/05/22 08:00 02/05/22 08:00 - Constitutional no acute distress, cooperative - Routine HEENT Exam Head: Present: normocephalic, atraumatic Eye: Present: EOMI, PERRL ENT: Present: mucous membranes moist - Routine Neck Exam Present: supple, full ROM, trachea midline. Absent: JVD, lymphadenopathy - Routine Respiratory Exam Absent: accessory muscle use, respiratory distress Comments: Symmetric chest movement, able to speak in complete sentences - Routine Cardiovascular Exam Present: RRR Comments: Normal peripheral pulses - Routine Abdominal Exam Present: soft. Absent: tenderness - Routine Extremities Exam Present: pulses intact, normal capillary refill Comments: Upon examination of the lower extremities: The limb lengths are equal. Dressings present over the right hip are clean, dry, and intact. No evidence of drainage or bleeding noted. Attempted movements of the right hip are somewhat painful. Thigh and calf are soft nontender; Homans' sign is negative. Posterior tibial pulse 1+; capillary refill is brisk. Sensation to light touch is grossly intact throughout. Patient is actively mobilizing the ankle, foot, and toes. - Routine Skin Exam Present: intact, warm, normal turgor. Absent: cyanosis, erythema, lesions, jaundice - Routine Neurological Exam Present: alert, oriented X3, moving all extremities, normal tone, normal speech. Absent: sensory deficit, motor deficit, altered mental status - Routine Psychiatric Exam Present: normal affect, cooperative - Urinary Catheter Management Gann Cath placed during this visit: no Urethral indwelling: No Progress Note: A&P (1) Closed right hip fracture Status: Acute (2) Elevated troponin Status: Acute (3) Fall Status: Acute Assessment and Plan for All Diagnoses:: I have discussed the clinical findings and progress with the patient and her granddaughter. Overall she is doing well from an orthopedic standpoint can be discharged when medically appropriate. Sterile bordered gauze dressings present over the right hip are clean, dry, and intact. No evidence of drainage or bleeding noted. Patient has a Dermabond Prineo dressing in place, I have advised the patient that the sterile bordered gauze may be removed in a couple of days and it is permissible for her to get the incision wet with shower water at that time. I have given the patient appropriate care instructions for her Dermabond Prineo dressing and advised her not to remove it. After showering, pat the incision dry, and it may be lef
--- NOTE | 2022-02-05 10:20 | HMH.SLDYSPHA ---
Speech & Language Evaluation Speech/Language Dysphagia Evaluation Start: 02/05/22 10:08 Freq: ONCE Status: Active Protocol: Document 02/05/22 10:09 MAX (Rec: 02/05/22 10:20 MAX [id number]) Dysphagia Assess/Goals/Plan Assessment Date of Evaluation: 02/05/22 Evaluation Type Initial Certification Assessment/Problems Dysphagia Eval Does Patient Qualify for Service No Qualify/Failure Comment Patient displays no overt signs or symptoms of dysphagia at the time. Recommendations PHYSICIAN CERTIFICATION: The specified therapy services are required, authorized, and reviewed every 30 days. Diet Recommendations Normal Liquid Type Recommendations Normal/Thin SL Swallow Guidelines Standard Aspiration Prec. Crush Meds Crush all meds Dysphagia Swallow Precautions/Strategies Sitting Upright (90 deg),Small Bites and Sips,Alternate Liquids/Solids Place Food on Either side of Mouth Comment Continue with MD recommended diet Plan Pt/Guardian verbally ack understanding Yes of dx/prognosis/goals Pt/Guardian verbally ack understanding Yes of/consent to tx prog G -code Required No Speech & Language HPI History Present Illness Description of Patient Problem Pt is a 71 year old female presenting to [facility] s/p fall at home with subsequent femur fracture. Pt/Caregiver Concerns Nursing noted pt coughing with medications crushed in puree. Rehab Services Assessed Speech therapy Language Primary Language Somali General Information General Current Food Consistancy Regular Dentition Good Dentition Oxygen Status Room Air Facial Symmetry Symmetrical Ability to Follow Directions Excellent Communication Ability No Impairment Dysphagia:Food Presentation Evaluation Food Type Pureed,Regular,Liquid,Pudding Dysphagia Evaluation Summary Patient was given the following consistencies, thins via open cup and straw, pudding, puree, and regular. Patient displayed no overt s/ sxs of aspiration with any consistency. No oral residue noted and adequate mastication . Stroke Dysphagia Assessment PHYSICIAN CERTIFICATION: I certify the sp
[2022-02-05 10:26] LABS: Coronavirus 19, PCR Not Detected (NotDetected); Influenza A, PCR Not Detected (NotDetected); Influenza B, PCR Not Detected (NotDetected)
--- NOTE | 2022-02-05 12:12 | HMH.DCSUM ---
General - General Admission date:: 01/30/22 Discharge date: 02/05/22 HPI HPI: 71-year-old female presented to ed after a fall in her bathroom. The patient was found down in her bathroom after an unwitnessed fall per family she was down over 12 hours before her son found her and had her transported to [facility]. The patient denied having any chest pain or pressure. She denies any shortness of breath or edema. She denies any fever, chills, nausea, vomiting, diarrhea, PND or orthopnea. The patient lives alone and uses a cane or walker for ambulation. She does have a history of coronary artery disease with an NJ in December 2019 and severe three-vessel disease with coronary stenting. Admitted for right femoral neck fracture and cardiology consult for clearance. Hospital Course Hospital Course: Date of procedure: 01/31/22 Pre-op Diagnosis:: right femoral neck fracture Post-op Diagnosis:: same Procedure performed:: 52278: Open treatment right femoral neck fracture, via right hip hemiarthroplasty Surgeon:: Damien Hawk JR, MD Cripple Cutter(s):: Zully Saravia PA-C Anesthesia: SHERRI Estimated blood loss (mL): 100 Operative findings:: Trial and final prosthesis stable and sleeping position, at 90 degrees flexion past 45 degrees internal rotation. Implants: [employer] Polar stem, standard offset, size 5 with collar, 51 mm outer diameter ulcer bipolar head, 28 mm outer diameter inner bipolar head. Operative note:: 71-year-old female with right femoral neck fracture as a result of a ground-level fall. She was alert to person but otherwise disoriented. I had a discussion with her family regarding further management, recommended right hip hemiarthroplasty to allow for early mobilization. We discussed risk benefits of surgery including pain, bleeding, infection, damage to adjacent structures, need for further surgery, periprosthetic fracture, prosthetic joint dislocation, wound healing complications, loss of limb, . The patient's family expressed verbal consent and written consent was obtained for the above procedure. Patient was identified in preoperative holding. Operative site was marked in indelible ink. History, physical, consent were reviewed and updated. Patient was surrendered to the anesthesia team, taken to the operative suite. Anesthesia was induced. Patient was then placed in the lateral decubitus position on a well-padded operative table. All bony prominences were padded and an axillary roll was placed. The operative extremity was prepped and draped in the usual sterile fashion. The operative team donned sterile gowns and gloves and a timeout was called. All in attendance agreed regarding the patient's identity, procedure, operative site. Weight-based dose of antibiotics was given prior to incision. A skin maker was then used to deanne all bony prominences. Skin incision was then carried out extending from the greater trochanter in a curvilinear fashion posteriorly across the buttocks. I incised the skin with a scalpel, then using a Bovie dissected through tissues. The fascia obdulio was incised utilizing Metzenbaum scissors. This was taken down to the bursa, which was removed utilizing a rongeur. Utilizing a periosteal elevator as well as the sponge, the fat was then freed from the short external rotators of the left hip after these were placed and stretched. The sciatic nerve was protected. Bovie was used to remove the short external rotators from the greater trochanter, which revealed the joint capsule. His were tagged for later repair. The capsule was cleared and incised utilizing a T-shape incision. A fracture hematoma was noted upon entering the joint capsule as well as the femoral neck fracture. A cork screw was then used to remove the fractured femoral head, which was given to the senior wind turbine technician which was sized on the back table. All bony remnants were then removed from the acetabulum
--- NOTE | 2022-02-06 16:01 | CARE MANAGER ---
Spoke with nurse at [facility] and she states patient is doing well and has no needs at this time.
== END 2022-02-05 14:21 | DRG 522 ==
LOC: ER 17:10 → 2ND 17:56
PROVIDERS: Family Medicine; Nurse Practitioner Family; Orthopaedic Surgery; Admitting Provider Emergency Medicine; Emergency Provider Emergency Medicine; PCP Family Medicine; Visit Provider Emergency Medicine
PROC: 0SRR0JZ Replacement of Right Hip Joint, Femoral Surface with Synthetic Substitute, Open Approach (ICD-10-PCS; principal; 2022-01-31 20:00)
DX: S72.001A Fracture of unspecified part of neck of right femur, initial encounter for closed fracture (principal); N39.0 Urinary tract infection, site not specified; I10 Essential (primary) hypertension; W01.0XXA Fall on same level from slipping, tripping and stumbling without subsequent striking against object, initial encounter; Y92.012 Bathroom of single-family (private) house as the place of occurrence of the external cause; I25.10 Atherosclerotic heart disease of native coronary artery without angina pectoris; I70.1 Atherosclerosis of renal artery; E78.5 Hyperlipidemia, unspecified; I25.2 Old myocardial infarction; Z87.891 Personal history of nicotine dependence; B96.1 Klebsiella pneumoniae [K. pneumoniae] as the cause of diseases classified elsewhere; Z95.5 Presence of coronary angioplasty implant and graft; I71.4 Abdominal aortic aneurysm, without rupture; I73.9 Peripheral vascular disease, unspecified
CPT/HCPCS: 27236; 36415; 70450; 71045; 72100; 72125; 73502; 73552; 80048; 80053; 81001; 82550; 83605; 84484; 85007; 85025; 85610; 85730; 86850; 87040; 87086; 87088; 87186; 92610; 93005; 93306; 96365; 96375; 97110; 97116; 97162; 97530; 99285; C1776; C9803; J0696; J2405; U0003; U0005

== ENCOUNTER → 2022-02-23 10:45 | Outpatient (CLI) | payer MEDICARE, OTHER, SELFPAY ==
--- NOTE | 2022-02-23 10:49 | XR_ITS ---
FINAL REPORT CLINICAL HISTORY: rt hip fx post op COMPARISON: Foot 01/31/2022 FINDINGS: RIGHT HIP Three views were obtained. The patient is status post right hip arthroplasty. There is no evidence of complication. Multiple soft tissue calcifications are seen bilaterally. Note is made of vascular calcification. IMPRESSION: Postsurgical changes without evidence of complication. Reviewed, Interpreted and Dictated by Juan Goodson III, MD Transcribed by Fatimah Dior Authenticated by Juan Goodson III, MD on 02/23/2022 12:49:13 PM [facility]
== END ==
PROVIDERS: PCP Family Medicine; Visit Provider Orthopaedic Surgery
DX: S72.001A Fracture of unspecified part of neck of right femur, initial encounter for closed fracture (principal)
CPT/HCPCS: 73502

== ENCOUNTER → 2022-04-13 08:55 | Outpatient (CLI) | payer MEDICARE, OTHER, SELFPAY ==
--- NOTE | 2022-04-13 09:00 | XR_ITS ---
FINAL REPORT CLINICAL HISTORY: s/p rt hip fracture COMPARISON: February 23, 2022 FINDINGS: RIGHT HIP Two views of the right hip demonstrate no acute fracture or dislocation. The patient is status post right hip arthroplasty which is stable from the prior exam. The visualized bony structures are well aligned. There are multiple gluteal soft tissue calcifications, stable. There are mild vascular calcifications. IMPRESSION: Stable findings with no acute bony abnormality. Reviewed, Interpreted and Dictated by Juan Goodson III, MD Transcribed by Perri Ray Authenticated and [facility]
== END ==
PROVIDERS: PCP Family Medicine; Visit Provider Orthopaedic Surgery
DX: S72.001A Fracture of unspecified part of neck of right femur, initial encounter for closed fracture (principal)
CPT/HCPCS: 73502

== ENCOUNTER → 2022-04-23 08:35 | Outpatient (CLI) | payer MEDICARE, OTHER, SELFPAY ==
--- NOTE | 2022-04-23 08:40 | XR_ITS ---
FINAL REPORT TECHNIQUE: Bone densitometry calculations of the lumbar spine and left hip were obtained. CLINICAL HISTORY: screening, FINDINGS: DEXA BONE DENSITY AXIAL SKELETON Using L1-4, the bone mineral density of the spine is 0.602 g/cm2, corresponding to T-score of -4.0. Using the left hip, the bone mineral density of the femoral neck is 0.371 g/cm2, corresponding to a T-score of -4.3. Using the right forearm, the bone mineral density of the distal 1/3 is 0.329 g/cm2, corresponding to a T-score of -6.1. NOTE: T-score: Standard deviation compared with peak bone mass of young adult mean. *Following the recommendations of the International Society of Bone Densitometry, classification of hip BMD is based on the lower of two T-scores; total hip or femoral neck. IMPRESSION: Osteoporosis: Lowest T-score is at or below -2.5. This patient's T-score meets the World Health Organization criteria for osteoporosis. Reviewed, Interpreted and Dictated by Juan Goodson III, MD Transcribed by Deisy Woodward Authenticated and [facility]
== END ==
PROVIDERS: PCP Family Medicine; Visit Provider Family Medicine
DX: Z13.820 Encounter for screening for osteoporosis (principal); Z78.0 Asymptomatic menopausal state; S72.001D Fracture of unspecified part of neck of right femur, subsequent encounter for closed fracture with routine healing
CPT/HCPCS: 77080

== ENCOUNTER → 2022-07-06 08:56 | Outpatient (CLI) | payer MEDICARE, OTHER, SELFPAY ==
--- NOTE | 2022-07-06 09:05 | XR_ITS ---
FINAL REPORT CLINICAL HISTORY: right hip replacement follow up COMPARISON: April 13, 2022 FINDINGS: RIGHT HIP Two views of the right hip including an AP pelvis demonstrate postoperative changes from right hip arthroplasty. There are mild degenerative changes of the left hip. The visualized bony structures are well aligned. There are mild vascular calcifications. IMPRESSION: Postoperative change with no acute bony abnormality. Reviewed, Interpreted and Dictated by Juan Goodson III, MD Transcribed by Deisy Woodward Authenticated and [facility]
== END ==
PROVIDERS: PCP Family Medicine; Visit Provider Orthopaedic Surgery
DX: M25.551 Pain in right hip; S79.911A Unspecified injury of right hip, initial encounter
CPT/HCPCS: 72100; 73502

== ENCOUNTER → 2022-07-12 08:37 | Outpatient (POV) | payer MEDICARE, OTHER, SELFPAY ==
[2022-07-12 09:10] VITALS: BP 152/124; PULSE 94; RESP 18; TEMP 37.1; O2SAT 97; BMI 18.3
--- NOTE | 2022-07-12 09:22 | EXP.PAIN.OV ---
HPI Data of Consult Patient: new to practice Consult date: 07/12/22 Requesting Physician: Bri Rizo APRN Primary Care Provider: Rush Rodas MD Consult Narrative Reason for consult: Low back pain History of present illness: Ms. Wiley is a 72 year old female who presents today as a new patient. She is a referral from Damien Hawk's office. Patient rates her pain today an 8 out of 10 and states it is all in her low back. She states about 1 year ago she had a fall and fractured her spine and feels like it did not heal correctly. She states she did go to physical therapy however did not seem to get significant improvement. She has continued home exercises however this does appear to make her symptoms worse. Patient has tried ibuprofen and Tylenol [id number] however there has been minimal improvement. Patient also uses a heating pad with minimal relief. Patient states this is a sharp, throbbing, constant sensation that is worse with increased activity or certain positioning. Patient has also had a stroke in the last couple of years. Patient is currently managed with gabapentin 100 mg twice a day by Dr. Rodas. Her Ascencion is [id number]. It has been reviewed and appropriate. CC: Bri Rizo APRN [facility] Medical History (Updated 07/12/22 @ 09:27 by Bri Rizo APRN) Abnormal ankle brachial index (VALERY) Aneurysm CAD (coronary artery disease) Claudication CVA (cerebral vascular accident) HLD (hyperlipidemia) HTN (hypertension) Lumbar compression fracture PAD (peripheral artery disease) Renal artery stenosis Tobacco dependence syndrome Surgical History (Updated 07/12/22 @ 09:17 by Onelia Novak RN) Hx of cardiac cath S/P hip hemiarthroplasty Stented coronary artery Social History Smoking Status: Former smoker second hand exposure: No alcohol intake: never substance use type: denies use current occupational status: retired Travel in the last 8 weeks: None household members: spouse housing: house current occupational exposures/hazards: No caffeine: Yes Review of Systems Review of Systems Review of systems:: pertinent systems reviewed and negative unless documented below Review of systems (narrative): Review of Systems: General: No recent weight changes, no fever, no sleep disturbances Respiratory: No cough, no shortness of air, no recurring pulmonary infections Cardiovascular/peripheral vascular: No chest pain, no palpitations, no edema, no shortness of breath Gastrointestinal: No new onset incontinence, normal bowel movements reported Genitourinary: No new onset incontinence Musculoskeletal: Low back pain Psychiatric: [Normal mood/affect] Neurological: [Denies weakness in extremities], [denies balance issues] Meds Home Medications and Allergies Home Medications Medication Instructions Recorded Confirmed Type oxcarbazepine 300 mg tablet 300 mg PO BID trigeminal neuralgia 04/11/18 07/12/22 History potassium chloride 20 mEq 20 meq PO BID potassium replacement 04/11/18 07/12/22 History tablet,extended release(part/cryst) atorvastatin 40 mg tablet 40 mg PO HS Cholesterol 06/19/18 07/12/22 History carvedilol 3.125 mg tablet (Coreg) 3.125 mg PO BID heart rate 12/26/20 07/12/22 History omeprazole 20 mg capsule,delayed 20 mg PO DAILY acid reflux 12/26/20 07/12/22 History release aspirin 81 mg tablet,delayed 81 mg PO DAILY heart health 08/29/21 07/12/22 History release bupropion HCl 150 mg tablet,12 hr 150 mg PO BID mood 01/30/22 07/12/22 History sustained-release calcium carbonate 600 mg-vitamin 1 each PO DAILY Supplement 01/30/22 07/12/22 History D3 20 mcg (800 unit) tablet valsartan 80 mg tablet 80 mg PO DAILY High blood pressure 01/31/22 07/12/22 History tuberculin PPD 5 tub. unit/0.1 mL 0.1 ml intradermal ONCE N/A 02/26/22 07/12/22 History intradermal injection solution (Aplisol) gabap
== END ==
PROVIDERS: PCP Family Medicine; Visit Provider Nurse Practitioner Family
DX: M51.36 Other intervertebral disc degeneration, lumbar region (principal); S32.010D Wedge compression fracture of first lumbar vertebra, subsequent encounter for fracture with routine healing
CPT/HCPCS: 99202; G0463

== ENCOUNTER → 2022-07-13 09:41 | Outpatient (CLI) | payer MEDICARE, OTHER, SELFPAY ==
--- NOTE | 2022-07-13 09:48 | MR_ITS ---
FINAL REPORT CLINICAL HISTORY: LBP X'S 2 WEEKS. WEAKNESS ALL OVER. ESPECIALL IN LEGS. NUMBNESS/ TINGLING/ PAIN RADIATES DOWN BILATERAL EXTREMIITIES. FINDINGS: Multiplanar MR imaging of the lumbar spine was performed without contrast. On the sagittal T2-weighted images, multilevel disc degeneration is seen. There is mild retrolisthesis of L3 on L4. There is a moderate L2 and mild L3 chronic superior endplate compression fracture. No acute fracture is identified. No bony mass is identified. The conus is seen at approximately the L1 level and has an unremarkable appearance. Note is made of a 5.4 cm upper abdominal aortic aneurysm with significant mural thrombus. There is also significant left renal atrophy noted. L1-2: There is an annular disc bulge with facet arthropathy and vertebral osteophytes. There is no significant canal stenosis or neural foraminal narrowing. L2-3: There is an annular disc bulge with facet arthropathy and vertebral osteophytes. There is a small right foraminal disc protrusion with mild right neural foraminal narrowing. L3-4: There is an annular disc bulge with moderate bilateral neural foraminal narrowing. L4-5: There is annular disc bulge with moderate bilateral neural foraminal narrowing. L5-S1: There is an annular disc bulge with mild left neural foraminal narrowing. IMPRESSION: Multilevel degenerative disc disease with small right foraminal disc protrusion at L2-3 and mild to moderate neural foraminal narrowing throughout. 5.4 cm abdominal aortic aneurysm. Chronic compression fractures. Reviewed, Interpreted and Dictated by Juan Goodson III, MD Transcribed by Ciarra Sanches Authenticated and [facility]
== END ==
PROVIDERS: PCP Family Medicine; Visit Provider Nurse Practitioner Family
DX: M54.50 Low back pain, unspecified (principal); S32.020A Wedge compression fracture of second lumbar vertebra, initial encounter for closed fracture
CPT/HCPCS: 72148; 76376

== ENCOUNTER → 2022-07-23 10:07 | Outpatient (POV) | payer MEDICARE, OTHER, SELFPAY ==
[2022-07-23 10:21] VITALS: BP 170/91; PULSE 97; RESP 18; TEMP 36.8; O2SAT 95; BMI 18.3
--- NOTE | 2022-07-23 10:32 | EXP.PAIN.SOA ---
[facility] Pain Management SOAP Note Subjective:: Patient is a pleasant 72-year-old female who presents today for follow-up of MRI imaging on 07/13/2022. We are currently treating the patient for degenerative disc disease of lumbar spine, chronic compression fracture, low back pain. Today the patient rates her pain a 0 out of 10. She states she has had significant improvement following the addition of her V force back brace. She states she has had 100% improvement throughout the day. She states she does have worsening symptoms at night and describes this as a aching, throbbing sensation in her low back. Patient denies any new trauma or injury. Patient denies any change to the location or type of pain she experiences. Patient did have a fall roughly 1 year ago that fractured her spine. Patient did go to physical therapy however it did not provide significant improvement. Patient continues to use her heating pad with minimal improvement of her symptoms. Patient does have a history of a stroke within the last couple of years. She is currently managed with gabapentin 100 mg twice a day by Dr. Rodas. Patient denies any side effects from this medication. She states this medication does adequately help manage her symptoms. Her Ascencion is [id number]. It is been reviewed and appropriate. Review of Systems: General: No recent weight changes, no fever, no sleep disturbances Respiratory: No cough, no shortness of air, no recurring pulmonary infections Cardiovascular/peripheral vascular: No chest pain, no palpitations, no edema, no shortness of breath Gastrointestinal: No new onset incontinence, normal bowel movements reported Genitourinary: No new onset incontinence Musculoskeletal: Low back pain Psychiatric: [Normal mood/affect] Neurological: [Denies weakness in extremities], [denies balance issues] Objective:: Physical Exam: General: Alert and oriented x3, no acute distress, pleasant and cooperative Lungs: Respirations even and unlabored, symmetrical chest expansion Eyes: PERRL Musculoskeletal: Flexion and extension of lumbar [spine] somewhat guarded secondary to pain, [antalgic gait noted] Neurological: Speech clear, no gross sensory deficit Assessment:: Degenerative disc disease of lumbar spine, chronic compression fracture, low back pain Plan:: Patient has had significant improvement of her pain symptoms since our last visit. Patient is currently using a V4's back brace that she states has provided 100% of improvement of her symptoms during the day. Patient does have worsening pain at night. I have discussed with the patient regarding starting tizanidine 4 mg at night to help with her muscle pains. I will provide a 2-week supply of this medication. I will also order the patient a compounding cream at today's visit. Patient's MRI did show degenerative disc disease multilevel, moderate L2 and mild L3 chronic superior endplate compression fractures, multilevel disc bulges, facet arthropathy and neural foraminal narrowing. Patient did have a significant 5.4 cm upper abdominal aortic aneurysm. Patient stated that she sees a physician in [place] regarding her aneurysm. She is scheduled to have surgery on this in October of this year. We will schedule a 2-week follow-up. Patient return to clinic in 2 weeks for reevaluation of symptoms and medication refill if indicated. Patient has been instructed to contact the clinic with any concerns before the next appointment. Dr. Galvan has reviewed this note and agrees with this plan of care. This note was dictated using voice recognition software and make contain errors or omissions. [facility] Medical History (Updated 07/12/22 @ 09:27 by Bri Rizo APRN) Abnormal ankle brachial index (VALERY) Aneurysm CAD (coronary artery disease) Claudication CVA (cerebral vascular accident) HLD (hyperlipidemia) HTN (hypertension) Lumbar compression fracture PAD (peripheral artery disease) Renal artery stenosis Tobacco depende
== END | disposition home or self-care (01) ==
PROVIDERS: PCP Family Medicine; Visit Provider Nurse Practitioner Family
DX: M51.36 Other intervertebral disc degeneration, lumbar region (principal); M48.50XD Collapsed vertebra, not elsewhere classified, site unspecified, subsequent encounter for fracture with routine healing
CPT/HCPCS: 99212; G0463

== ENCOUNTER → 2022-08-13 14:27 | Outpatient (POV) | payer MEDICARE, OTHER, SELFPAY ==
[2022-08-13 14:43] VITALS: BP 160/107; PULSE 97; RESP 18; TEMP 37; O2SAT 96; BMI 18.3
--- NOTE | 2022-08-13 16:30 | A.OFFVIS_ITS ---
[facility] Pain Management SOAP Note Subjective:: Patient is a pleasant 72-year-old female who presents today for follow-up. Patient is coming treated for degenerative disc disease of lumbar spine, chronic compression fracture, low back pain. Patient is currently being managed with a V-Force back brace that is providing significant relief. Today, patient states that she is having some pain in her left lower back. This is a constant and achy pain. Denies any recent falls or traumas. Rates pain as 8/10. She has done PT in the past that provided minimal relief. Has a hx of CVA. Currently being managed with Gabapentin 100mg BID by Dr. Rodas. Denies any side effects from this medication. Ascencion [id number] with an active morphine equivalent of 0. Review of Systems: General: No recent weight changes, no fever, no sleep disturbances Respiratory: No cough, no shortness of air, no recurring pulmonary infections Cardiovascular/peripheral vascular: No chest pain, no palpitations, no edema, no shortness of breath Gastrointestinal: No new onset incontinence, normal bowel movements reported Genitourinary: No new onset incontinence Musculoskeletal: Low back pain Psychiatric: [Normal mood/affect] Neurological: [Denies weakness in extremities], [denies balance issues] Objective:: Physical Exam: General: Alert and oriented x3, no acute distress, pleasant and cooperative Lungs: Respirations even and unlabored, symmetrical chest expansion Eyes: PERRL Musculoskeletal: Flexion and extension of lumbar [spine] somewhat guarded secondary to pain, [antalgic gait noted]; patient is tender to palpation around the left lower back at the level of L4-L5. She does have a scar tissue in this area. Neurological: Speech clear, no gross sensory deficit Assessment:: Degenerative disease of the lumbar spine with lumbar radiculopathy symptoms, chr onic compression fracture, myofascial pain Plan:: We will schedule the patient for trigger point ejections to the left lumbar paraspinous muscles at the level of L4-5 around her scar tissue. We did send a compounding cream last time. Patient states that she has not received this medication yet. She will call Rx alternative for confirmation. I have discussed with the patient that the edge of the back brace might be pushing on her left lower back causing her pain. I am recommending that she only wears her brace whenever she is standing and walking. She can take this off whenever she is sitting down or sleeping. Patient has been instructed to contact the clinic with any concerns before the next appointment. Dr. Galvan has reviewed this note and agrees with this plan of care. This note was dictated using voice recognition software and make contain errors or omissions. [facility] Medical History (Updated 07/12/22 @ 09:27 by Bri iRzo APRN) Abnormal ankle brachial index (VALERY) Aneurysm CAD (coronary artery disease) Claudication CVA (cerebral vascular accident) HLD (hyperlipidemia) HTN (hypertension) Lumbar compression fracture PAD (peripheral artery disease) Renal artery stenosis Tobacco dependence syndrome Surgical History (Updated 07/12/22 @ 09:17 by Onelia Novak RN) Hx of cardiac cath S/P hip hemiarthroplasty Stented coronary artery Social History Smoking Status: Former smoker second hand exposure: No alcohol intake: never substance use type: denies use current occupational status: retired Travel in the last 8 weeks: None household members: spouse housing: house current occupational exposures/hazards: No caffeine: Yes
== END ==
PROVIDERS: Visit Provider Nurse Practitioner Family
DX: M51.16 Intervertebral disc disorders with radiculopathy, lumbar region (principal); M48.56XG Collapsed vertebra, not elsewhere classified, lumbar region, subsequent encounter for fracture with delayed healing; Z79.899 Other long term (current) drug therapy
CPT/HCPCS: 99212; G0463

== ENCOUNTER 2022-08-21 11:38 | Day surgery (SDC) | payer MEDICARE, OTHER, SELFPAY ==
[2022-08-21 11:52] VITALS: BP 118/77; PULSE 80; RESP 18; TEMP 37.1; O2SAT 96; BMI 20.2
[2022-08-21 12:19] VITALS: BP 139/93; PULSE 83; RESP 18; O2SAT 97
[2022-08-21 12:20] VITALS: BP 139/93; PULSE 83; RESP 18; O2SAT 100
[2022-08-21 12:27] VITALS: BP 127/75; PULSE 79; RESP 18; O2SAT 97
--- NOTE | 2022-08-21 12:41 | EXP.PAIN.PRO ---
Procedure Date: 08/21/22 Time: 12:30 Anesthesiologist:: Frandy Clark CRNA Complications:: None Pre-procedure Diagnosis:: Myofascial pain left lumbar paraspinous. Post-procedure Diagnosis:: Same. Indications for Procedure:: Patient is a pleasant 72-year-old female who comes our clinic today for left lumbar paraspinous muscle trigger point injections. She has extreme point tenderness over the left lumbar paraspinous muscle. Procedure Details:: Details of the procedure were explained to the patient. The patient was placed in a sitting position on the fluoroscopy table. The area over the left lumbar was cleaned using chlorhexidine as a cleansing solution. Using 25-gauge inch and half needle 3 cc of a solution containing 0.25% Marcaine +1% lidocaine and 40 mg of Depo-Medrol was injected at 3 different locations along the left lumbar paraspinous muscle. Patient tolerated the procedure without difficulty. There are no complications. Plan and Disposition:: Patient was discharged without incident.
== END 2022-08-21 12:27 | disposition home or self-care (01) ==
PROVIDERS: PCP Family Medicine; Visit Provider Nurse Anesthetist, Certified Registered
DX: M79.18 Myalgia, other site (principal)
CPT/HCPCS: 20552; J1040

== ENCOUNTER 2022-08-28 03:00 | Emergency (ER) | payer MEDICARE, OTHER, SELFPAY ==
[2022-08-28] VITALS (7 sets, daily range): BP systolic 132–193; BP diastolic 72–87; PULSE 83–113; RESP 16–22; TEMP 36.6–36.7; O2SAT 97–99; BMI 18.6
--- NOTE | 2022-08-28 03:10 | HMH.EDGENADL ---
Discharge Plan Disposition Patient Disposition: Home, Self-Care Condition: Good Prescriptions Prescriptions: New acetaminophen [Tylenol] 325 mg tablet 325 mg PO Q6H PRN (Reason: mild pain) Qty: 30 0RF methocarbamol 500 mg tablet 500 mg PO Q8H PRN (Reason: muscle spasm) Qty: 30 0RF lidocaine 4 % adhesive patch,medicated 1 patch topical DAILY PRN (Reason: pain) Qty: 10 0RF Rx Instructions: may leave on for up to 12 hrs No Action carvedilol [Coreg] 3.125 mg tablet 3.125 mg PO BID Rx Instructions: must administer with a meal/food omeprazole 20 mg capsule,delayed release(DR/EC) 20 mg PO DAILY Aplisol 5 tub. unit /0.1 mL solution 0.1 ml INTRADERMA ONCE gabapentin 100 mg capsule 100 mg PO BID Qty: 60 2RF Rx Instructions: 1 capsule in morning, 1 capsule at 5pm hydrocodone-acetaminophen 5-325 mg tablet 1 tab PO Q4H PRN (Reason: pain) Qty: 90 0RF aspirin 81 MG tablet,delayed release (DR/EC) 81 mg PO DAILY bupropion HCl 150 MG tablet sustained-release 12 hr 150 mg PO BID calcium carbonate-vitamin D3 1 EACH tablet 1 each PO DAILY valsartan 80 MG tablet 80 mg PO DAILY sulfamethoxazole-trimethoprim 1 EACH tablet 1 each PO BID rivaroxaban 10 MG tablet 10 mg PO QPMWITHMEAL Rx Instructions: CONTINUE HOME DOSE OF XARELTO @ 2.5MG BID WHEN THIS COURSE IS COMPLETE oxcarbazepine 300 MG tablet 300 mg PO BID potassium chloride 20 MEQ tablet 20 meq PO BID atorvastatin 40 MG tablet 40 mg PO HS tizanidine [Zanaflex] 4 mg tablet 4 mg PO HS Referrals Follow up/Referrals: Rush Rodas MD [Primary Care Provider] - See instructions Activity Restrictions/Add. Instructions Additional Instructions/Restrictions: You have been evaluated for low back pain, likely due to compression fractures. Please continue taking gabapentin twice daily. Start taking Tylenol every 6 hours. Use lidocaine patches once daily. Take Robaxin as needed for muscle spasm. Follow-up with your primary care doctor in 1 to 2 days for symptom recheck. Follow-up with your pain specialist. Return to the emergency department at once for any new or worsening symptoms, uncontrolled pain, fever, numbness or weakness in your legs, difficulty urinating or any other concerns. Clinical Impressions Clinical Impression: Low back pain, Compression fracture of lumbar vertebra Instructions Patient Instructions: DI for Low Back Pain, DI for Chronic Pain -- Adult Discharge ED Provider: Pat Dumont Adult HPI General Chief complaint: Back Pain/Injury Stated complaint: Back pain Time Seen by Provider: 08/28/22 03:02 Mode of Arrival: Ambulatory Source of Information: Patient Limitations: No Limitations History of Present Illness HPI narrative: 72-year-old female presenting to the emergency department with back pain. Pain is located in the midportion of the low back, radiates slightly to the left. Pain is described as constant and achy, sometimes sharp with motion. She has had pain like this for the last few months since she broke her back in a fall. She is post wearing a back brace, but it is too uncomfortable. She follows with interventional pain, Dr. Galvan. Says she does not take any oral medication for pain. Takes gabapentin for other neuropathy. Pain was worse tonight, she was unable to sleep. No new injury. No recent illness, fevers, chills, nausea, vomiting. No numbness, weakness, tingling in the lower extremities. No difficulty urinating, pain with urination. Related Data Home Medications Medication Instructions Recorded Confirmed oxcarbazepine 300 mg tablet 300 mg PO BID trigeminal neuralgia 04/11/18 08/21/22 potassium chloride 20 mEq 20 meq PO BID potassium replacement 04/11/18 08/21/22 tablet,extended release(part/cryst) atorvastatin 40 mg tablet 40 mg PO HS Cholesterol 06/19/18 08/21/22 carvedilol 3.125
--- NOTE | 2022-08-28 05:04 | CT_ITS ---
PROCEDURE INFORMATION: Exam: CT Abdomen And Pelvis With Contrast Exam date and time: 08/28/2022 6:06 AM Age: 72 years old Clinical indication: Other: Lbp; Prior surgery; Surgery date: 6+ months; Surgery type: Hip replacement; Patient HX: PT fell x months ago, pain in lt side lwr back; Additional info: Low back pain, aaa TECHNIQUE: Imaging protocol: Computed tomography of the abdomen and pelvis with contrast. Radiation optimization: All CT scans at this facility use at least one of these dose optimization techniques: automated exposure control; mA and/or kV adjustment per patient size (includes targeted exams where dose is matched to clinical indication); or iterative reconstruction. Contrast material: ISOVUE; Contrast volume: 70 ml; Contrast route: IV; COMPARISON: CT ANGIO ABDOMEN 05/11/2021 9:55 AM FINDINGS: Heart: Extensive coronary atherosclerosis is noted. Diaphragm: Small hiatal hernia is noted. Liver: Normal. No mass. Gallbladder and bile ducts: Normal. No calcified stones. No ductal dilation. Pancreas: Normal. No ductal dilation. Spleen: Normal. No splenomegaly. Adrenal glands: Normal. No mass. Kidneys and ureters: There is atrophy of the left kidney. Stomach and bowel: Unremarkable. No obstruction. No mucosal thickening. Appendix: No evidence of appendicitis. Intraperitoneal space: Unremarkable. No free air. No significant fluid collection. Vasculature: A large upper abdominal aortic aneurysm is present this measures a maximum 6.7 x 5.8 cm, increased from 5.2 x 4.8 cm on 05/11/2021. There is also evidence of hemorrhage within the thrombus on the left side see series 3, image 29. . A large amount of eccentric thrombus is identified in the aneurysm extends to the aortic bifurcation. Along the superior posterior aspect there is a new nodular region which could represent a sentinel bleed. This can be seen on series 3, image 22. Lymph nodes: Unremarkable. No enlarged lymph nodes. Urinary bladder: Unremarkable as visualized. Reproductive: Unremarkable as visualized. Bones/joints: The patient is status post right hip arthroplasty. Superior endplate compression fractures of L2 and L3 are identified, however these are unchanged from the prior study. Soft tissues: Unremarkable. IMPRESSION: 1. Increased size of the upper abdominal aortic aneurysm as described, this also demonstrates some new hemorrhage within the thrombus. Along the superior posterior aspect there is a new focal area of increased density adjacent to the left diaphragmatic narcisa which could represent a focal sentinel bleed. 2. No other acute abdominal or pelvic process noted. 3. Extensive coronary atherosclerosis. THIS REPORT CONTAINS FINDINGS THAT MAY BE CRITICAL TO PATIENT CARE. The findings were verbally communicated via telephone conference with KILEY MCCARTY at 6:55 AM EDT on 08/28/2022. The findings were acknowledged and understood.
--- NOTE | 2022-08-28 06:01 | PC.NURSE ---
requesting that patient have ct scan regardless of the results of her cbc and bmp. states that regardless of the results of those labs the scan would still be mandatory. Kristal in lab notified.
[2022-08-28 06:24] LABS: Basophils # 0.1 K/mm3 (0-0.2); Basophils % 0.9 % (0.1-2.0); Chloride 104 mmol/L (98-107); Eosinophils # 0.1 K/mm3 (0.0-0.4); Eosinophils % 1.5 % (0.1-12.0); Hematocrit 45.6 % (37.0-47.0); Hemoglobin 14.3 g/dL (12.2-16.2); Lymphocytes # 1.1 K/mm3 (0.7-4.5); Lymphocytes % 13.8 % (10-50); Mean Corpuscular HGB Conc 31.4 g/dL (31.8-35.4); Mean Corpuscular Hemoglobin 28.1 pg (27.0-31.2); Mean Corpuscular Volume 89.5 fl (81-99); Mean Platelet Volume 8.7 fl (7.4-10.4); Monocytes # 0.6 K/mm3 (0.1-1.0); Monocytes % 7.5 % (1.7-9.3); Neutrophils # 6.1 K/mm3 (1.8-7.8); Neutrophils % 76.3 % (37.0-80.0); Platelet Count 227 K/mm3 (142-424); Potassium 4.2 mmoL/L (3.5-5.1); Red Blood Count 5.09 M/mm3 (4.20-5.40); Red Cell Distribution Width 16.9 % (11.5-17.5); Sodium 139 mmol/L (136-145)
[2022-08-28 06:26] LABS: Alanine Aminotransferase 20 U/L (12-78); Aspartate Amino Transferase 38 U/L (14-36); Blood Urea Nitrogen 22 mg/dl (7-17); Creatinine Clearance Estimated 41 mL/min (50-200); Estimated Glomerular Filt Rate 54 ml/min (>60); GFR (African American) 66 ML/MIN (>60)
[2022-08-28 06:27] LABS: Albumin Level 4.1 g/dl (3.5-5.0); Alkaline Phosphatase 109 U/L (38-126); Anion Gap 13.2 mEq/L (5-15); Bilirubin,Total 0.6 mg/dl (0.2-1.3); Calcium 9.2 mg/dl (8.4-10.2); Carbon Dioxide 26 mmol/L (22.0-30.0); Glucose 116 mg/dl (74-100); Total Protein,Serum 8.1 g/dl (6.3-8.2)
--- NOTE | 2022-08-28 06:37 | PC.NURSE ---
Warm blanket provided
--- NOTE | 2022-08-28 07:05 | PC.NURSE ---
Attempted to reach out to [facility]. They advised they wanted to look at the pts CT scan before speaking with Dr. Dumont.
--- NOTE | 2022-08-28 07:14 | PC.NURSE ---
Dr. Dumont speaking with [facility]
--- NOTE | 2022-08-28 07:21 | PC.NURSE ---
Requested a disc from Rad
--- NOTE | 2022-08-28 07:28 | PC.NURSE ---
speaking with Dr Castillo. Pt accepted to [facility]
[2022-08-28 07:31] LABS: INR 1.01 (0.9-1.1); Prothrombin Time 10.9 seconds (10.1-12.5)
--- NOTE | 2022-08-28 07:33 | PC.NURSE ---
Called [facility] to notify of ALS transfer
--- NOTE | 2022-08-28 08:00 | PC.NURSE ---
u/s guided IV placed in the right forearm
[2022-08-28 08:12] LABS: Coronavirus 19, PCR Not Detected (NotDetected); Influenza A, PCR Not Detected (NotDetected); Influenza B, PCR Not Detected (NotDetected)
--- NOTE | 2022-08-28 08:22 | PC.NURSE ---
transport here for pt
--- NOTE | 2022-08-28 08:23 | PC.NURSE ---
pd declined pt transfer.
== END 2022-08-28 09:14 | disposition other institution (70) ==
PROVIDERS: Emergency Provider Emergency Medicine; PCP Family Medicine
DX: I71.40 Abdominal aortic aneurysm, without rupture, unspecified (principal); I25.10 Atherosclerotic heart disease of native coronary artery without angina pectoris; M51.36 Other intervertebral disc degeneration, lumbar region; M48.56XA Collapsed vertebra, not elsewhere classified, lumbar region, initial encounter for fracture; Z79.01 Long term (current) use of anticoagulants; Z79.82 Long term (current) use of aspirin; Z79.899 Other long term (current) drug therapy; Z91.040 Latex allergy status; Z91.09 Other allergy status, other than to drugs and biological substances; E78.5 Hyperlipidemia, unspecified; I10 Essential (primary) hypertension; I73.9 Peripheral vascular disease, unspecified
CPT/HCPCS: 74177; 80053; 85025; 85610; 86850; 99284; C9803; Q9967; U0003; U0005

== ENCOUNTER 2022-09-02 04:24 | Emergency (ER) | payer MEDICARE, OTHER, SELFPAY ==
[2022-09-02] VITALS (8 sets, daily range): BP systolic 96–173; BP diastolic 56–98; PULSE 68–93; RESP 16–18; TEMP 36.4–36.7; O2SAT 96–99; BMI 17.4
--- NOTE | 2022-09-02 04:32 | CT_ITS ---
PROCEDURE INFORMATION: Exam: CT Abdomen And Pelvis With Contrast Exam date and time: 09/02/2022 5:34 AM Age: 72 years old Clinical indication: Abdominal pain; Generalized; Additional info: Abdominal pain, diarrhea TECHNIQUE: Imaging protocol: Computed tomography of the abdomen and pelvis with contrast. Radiation optimization: All CT scans at this facility use at least one of these dose optimization techniques: automated exposure control; mA and/or kV adjustment per patient size (includes targeted exams where dose is matched to clinical indication); or iterative reconstruction. Contrast material: ISOVUE; Contrast volume: 75 ml; Contrast route: IV; COMPARISON: CT ABDOMEN PELVIS W CON 08/28/2022 6:06 AM FINDINGS: Lungs: Mild linear atelectasis/fibrosis. Moderate emphysematous changes. Old granulomatous disease. Pleural spaces: Trace bilateral pleural effusions. Heart: Dense aortic valve and coronary artery calcifications. Trace pericardial effusion. Liver: 6 mm posterior right hepatic hypodensity is too small to characterize. Gallbladder and bile ducts: No calcified stones. No ductal dilation. Pancreas: Mild nonspecific enlargement of the main pancreatic duct measuring up to 5 mm. No evidence of a mass. Spleen: Calcified splenic granulomata. Adrenal glands: See Kidneys and ureters finding. Kidneys and ureters: Severely atrophic left kidney. The left renal artery is poorly visualized and could be stenotic or occluded. 11 mm left renal cyst. Stable appearance of mild the nodular adrenal glands bilaterally. A left adrenal nodule measures up to 1.4 cm and is considered technically indeterminate on this exam. Stomach and bowel: Duodenal diverticula at the pancreatic head. Colonic diverticulosis. No evidence of acute diverticulitis. Some segments of the colon appear to have mild wall thickening which is nonspecific and may be due to nondistention. Colitis could be considered particularly in the right colon, but there is not significant acute inflammatory fat stranding. Appendix: No evidence of appendicitis. Intraperitoneal space: No free air. No significant fluid collection. Vasculature: Severe atherosclerotic disease. Redemonstrated is a large aortic aneurysm. The aneurysm begins in the distal thoracic segment near the diaphragmatic hiatus, but is greatest in the abdomen. This measures up to 6.8 x 6.2 cm near the level of the SMA. Findings have not significantly changed compared to recent CT from 08/28/2022, but exhibit worrisome growth compared to CT 04/25/2018 (previously 3.8 x 3.7 cm on that exam). The left psoas musculature adjacent to the posterior aspect of the aneurysm at L1 appears prominent, but this is likely due to compression from the aneurysm sac rather than rupture. No evidence of julio rupture. Probable moderate to severe stenosis of the left common iliac artery which is poorly evaluated. Lymph nodes: There are some mildly enlarged retroperitoneal lymph nodes which are nonspecific. An aortocaval lymph node measures up to 1.6 x 0.8 cm. Urinary bladder: Unremarkable as visualized. Reproductive: Unremarkable as visualized. Bones/joints: Right hip arthroplasty. Mild compression fracture of L3 is stable since CT 04/25/2018. A moderate compression fracture of L2 is new since that exam and of otherwise uncertain chronicity, but favored to be chronic. Soft tissues: Dense calcification in the subcutaneous regions of the flanks bilaterally with overlying skin thickening. Masslike area in the right breast measuring up to 1.8 x 1.4 cm; recommend correlating with mammography. IMPRESSION: 1. Stable appearance of the large irregular abdominal aortic
--- NOTE | 2022-09-02 04:34 | HMH.EDGENADL ---
Discharge Plan Disposition Patient Disposition: Home, Self-Care Condition: Fair Prescriptions Prescriptions: No Action Xarelto 2.5 mg tablet 2.5 mg PO BID Qty: 60 2RF carvedilol [Coreg] 3.125 mg tablet 3.125 mg PO BID Rx Instructions: must administer with a meal/food omeprazole 20 mg capsule,delayed release(DR/EC) 20 mg PO DAILY Aplisol 5 tub. unit /0.1 mL solution 0.1 ml INTRADERMA ONCE gabapentin 100 mg capsule 100 mg PO BID Qty: 60 2RF Rx Instructions: 1 capsule in morning, 1 capsule at 5pm aspirin 81 MG tablet,delayed release (DR/EC) 81 mg PO DAILY bupropion HCl 150 MG tablet sustained-release 12 hr 150 mg PO BID calcium carbonate-vitamin D3 1 EACH tablet 1 each PO DAILY valsartan 80 MG tablet 80 mg PO DAILY sulfamethoxazole-trimethoprim 1 EACH tablet 1 ea PO BID oxcarbazepine 300 MG tablet 300 mg PO BID potassium chloride 20 MEQ tablet 20 meq PO BID atorvastatin 40 MG tablet 40 mg PO HS acetaminophen [Tylenol] 325 mg tablet 325 mg PO Q6H PRN (Reason: mild pain) Qty: 30 0RF methocarbamol 500 mg tablet 500 mg PO Q8H PRN (Reason: muscle spasm) Qty: 30 0RF lidocaine 4 % adhesive patch,medicated 1 patch topical DAILY PRN (Reason: pain) Qty: 10 0RF Rx Instructions: may leave on for up to 12 hrs Referrals Follow up/Referrals: Rush Rodas MD [Primary Care Provider] - See instructions Activity Restrictions/Add. Instructions Additional Instructions/Restrictions: You have been evaluated for decreased appetite, possible dehydration. Please try to eat small meals throughout the day. Increase protein intake with nutrition shakes like Boost or Ensure. Take medications as prescribed. Robaxin for muscle spasm and pain. Follow-up with your primary care doctor in 1 to 2 days for symptom recheck. Your CT scan today incidentally shows that there is a cystic mass in your breast. You need to have a mammogram. Return to the emergency department at once for any new or worsening symptoms, pain, vomiting, any other concerns. Clinical Impressions Clinical Impression: Decreased appetite, Low back pain, AAA (abdominal aortic aneurysm), Breast mass Instructions Patient Instructions: Getting to the Heart of a Healthy Diet: Protein-Rich Foods, DI for Low Back Pain Discharge ED Provider: Pat Dumont Adult HPI General Chief complaint: Nausea/Vomiting/Diarrhea Stated complaint: 2 days diarrhea, nausea, not eating/drinking much Time Seen by Provider: 09/02/22 04:29 Mode of Arrival: Ambulatory Source of Information: Patient Limitations: No Limitations History of Present Illness HPI narrative: 72-year-old female presenting the emergency department with abdominal pain, diarrhea, decreased appetite. Symptoms have been ongoing for the last 2 days. Her daughter says she has no interest in eating or drinking. She seems very weak. She has had multiple episodes of loose stool, brownish in color. No blood or mucus. Patient has a known large 7 cm abdominal aortic aneurysm. She was transferred to for vascular surgery consultation on Saturday of this week, 3 days ago. Daughter says she did not have surgery because she was too weak. They recommended she return in about 1 month. No fevers, chills, nausea, vomiting, dysuria. She continues to have low back pain. Denies abdominal pain Related Data Home Medications Medication Instructions Recorded Confirmed oxcarbazepine 300 mg tablet 300 mg PO BID trigeminal neuralgia 04/11/18 08/29/22 potassium chloride 20 mEq 20 meq PO BID potassium replacement 04/11/18 08/29/22 tablet,extended release(part/cryst) atorvastatin 40 mg tablet 40 mg PO HS Cholesterol 06/19/18 08/29/22 carvedilol 3.125 mg tablet (Coreg) 3.125 mg PO BID heart rate 12/26/20 08/29/22 omeprazole 20 mg capsule,delayed 20 mg PO DAILY acid reflux 12/26/20 08/29/22 release aspirin 8
[2022-09-02 05:15] LABS: Basophils # 0.1 K/mm3 (0-0.2); Basophils % 0.8 % (0.1-2.0); Eosinophils # 0.2 K/mm3 (0.0-0.4); Eosinophils % 2.1 % (0.1-12.0); Hematocrit 44.6 % (37.0-47.0); Hemoglobin 13.8 g/dL (12.2-16.2); Lymphocytes # 1.2 K/mm3 (0.7-4.5); Lymphocytes % 14.3 % (10-50); Mean Corpuscular Hemoglobin 27.7 pg (27.0-31.2); Mean Corpuscular Volume 89.4 fl (81-99); Mean Platelet Volume 8.6 fl (7.4-10.4); Monocytes # 0.5 K/mm3 (0.1-1.0); Monocytes % 5.7 % (1.7-9.3); Neutrophils # 6.5 K/mm3 (1.8-7.8); Neutrophils % 77.1 % (37.0-80.0); Platelet Count 348 K/mm3 (142-424); Red Blood Count 4.99 M/mm3 (4.20-5.40); Red Cell Distribution Width 16.9 % (11.5-17.5); White Blood Count 8.4 K/mm3 (4.8-10.8)
[2022-09-02 05:18] LABS: Chloride 106 mmol/L (98-107); Potassium 3.9 mmoL/L (3.5-5.1); Sodium 139 mmol/L (136-145)
[2022-09-02 05:21] LABS: Alanine Aminotransferase 19 U/L (12-78); Albumin Level 3.7 g/dl (3.5-5.0); Albumin/Globulin Ratio 0.9 (1.1-1.8); Alkaline Phosphatase 114 U/L (38-126); Anion Gap 12.9 mEq/L (5-15); Aspartate Amino Transferase 41 U/L (14-36); Bilirubin,Total 0.3 mg/dl (0.2-1.3); Blood Urea Nitrogen 18 mg/dl (7-17); Calcium 8.7 mg/dl (8.4-10.2); Carbon Dioxide 24 mmol/L (22.0-30.0); Creatinine Clearance Estimated 37 mL/min (50-200); Estimated Glomerular Filt Rate 61 ml/min (>60); GFR (African American) 74 ML/MIN (>60); Globulin 4.3 g/dL (1.3-3.2); Glucose 103 mg/dl (74-100); Lipase 278 U/L (23-300)
--- NOTE | 2022-09-02 05:37 | PC.NURSE ---
Pt going to ct at this time
--- NOTE | 2022-09-02 05:49 | PC.NURSE ---
pt back from scan
[2022-09-02 06:18] LABS: Appearance,Urine CLEAR (Clear); Bilirubin,Urine Negative (Negative); Blood, Urine Negative (Negative); Color,Urine YELLOW (Yellow); Glucose,Urine (UA) Negative (Negative); Ketones,Urine TRACE (Negative); Leukocyte Esterase,Urine 1+ (Negative); Microscopic, Urine URINE MICROSCOPIC (MICROSCOPIC); Nitrate,Urine Negative (Negative); PH,Urine 5.5 (5.0-8.5); Protein,Urine TRACE (Negative); Urobilinogen,Urine 0.2 EU/dl (0.2)
[2022-09-02 06:33] LABS: Bacteria,Urine Trace /lpf
[2022-09-02 07:41] LABS: Procalcitonin 0.062 ng/mL (0.0-2.0)
== END 2022-09-02 08:50 | disposition home or self-care (01) ==
PROVIDERS: Emergency Provider Emergency Medicine; PCP Family Medicine
DX: I71.40 Abdominal aortic aneurysm, without rupture, unspecified (principal); N63.0 Unspecified lump in unspecified breast; R63.0 Anorexia; Z68.1 Body mass index [BMI] 19.9 or less, adult; Z79.82 Long term (current) use of aspirin; Z79.899 Other long term (current) drug therapy; I25.10 Atherosclerotic heart disease of native coronary artery without angina pectoris; E78.5 Hyperlipidemia, unspecified; I10 Essential (primary) hypertension; I73.9 Peripheral vascular disease, unspecified; I70.1 Atherosclerosis of renal artery; Z86.73 Personal history of transient ischemic attack (TIA), and cerebral infarction without residual deficits
CPT/HCPCS: 74177; 80053; 81001; 83605; 83690; 84145; 85025; 87086; 87088; 87186; 96365; 96366; 96375; 99284; J2405; Q9967

== ENCOUNTER → 2022-09-17 13:57 | Outpatient (POV) | payer MEDICARE, OTHER, SELFPAY ==
--- NOTE | 2022-09-17 14:37 | EXP.PAIN.SOA ---
[facility] Pain Management SOAP Note Subjective:: Patient is a pleasant 72-year-old female who presents today for follow-up of trigger point injections of left lumbar paraspinous on 08/21/2022. We are currently treating the patient for degenerative disc disease of lumbar spine, chronic compression fracture, low back pain. Today patient states that she did not notice significant improvement following these injections. She states her pain today is a 7 out of 10. She states pain is primarily in her left hip. She describes this as a constant, throbbing sensation that is worse with increased activity. Patient states this has been going on for years and denies any new trauma. Patient does state this affects her ability to perform activities of daily living. Patient has previously had her right hip replaced. Patient also has been using a V4's back brace to provide some improvement of her symptoms. Patient has had physical therapy in the past however this provided minimal improvement. Patient also has a history of CVA. Patient is currently managed with gabapentin 100 mg twice daily from an outside provider. Patient denies any side effects from this medication. She states she does not notice significant improvement with this. Patient was previously prescribed a compounding cream however she states she still never got this medication and that when she called they stated they had not received anything. Her Ascencion is [id number]. It has been reviewed and appropriate.\ Review of Systems: General: No recent weight changes, no fever, no sleep disturbances Respiratory: No cough, no shortness of air, no recurring pulmonary infections Cardiovascular/peripheral vascular: No chest pain, no palpitations, no edema, no shortness of breath Gastrointestinal: No new onset incontinence, normal bowel movements reported Genitourinary: No new onset incontinence Musculoskeletal: Left hip pain Psychiatric: [Normal mood/affect] Neurological: [Denies weakness in extremities], [denies balance issues] Objective:: Physical Exam: General: Alert and oriented x3, no acute distress, pleasant and cooperative Lungs: Respirations even and unlabored, symmetrical chest expansion Eyes: PERRL Musculoskeletal: Flexion and extension of lumbar spine somewhat guarded secondary to pain, [antalgic gait noted] Neurological: Speech clear, no gross sensory deficit Assessment:: Degenerative disc disease of lumbar spine with lumbar radiculopathy, chronic compression fracture, low back pain, left hip pain Plan:: Patient continues to experience significant pain in her low back that radiates into her left hip. Patient did have limited range of motion of her lumbar spine during today's visit. I have recommended that the patient try a diagnostic hip intra-articular injection. Risk and benefits were discussed with the patient. She would like to proceed forward with this plan of care. Patient is not currently on any blood thinners. I will resend in the compounding cream order. We will schedule the patient for a left hip intra-articular injection. Patient has been instructed to contact the clinic with any concerns before the next appointment. Dr. Galvan has reviewed this note and agrees with this plan of care. This note was dictated using voice recognition software and make contain errors or omissions. PFSH PFS Medical History Abnormal ankle brachial index (VALERY) Aneurysm CAD (coronary artery disease) Claudication CVA (cerebral vascular accident) HLD (hyperlipidemia) HTN (hypertension) Lumbar compression fracture PAD (peripheral artery disease) Renal artery stenosis Tobacco dependence syndrome Surgical History Hx of cardiac cath S/P hip hemiarthroplasty Stented coronary artery Family History Other No significant family history Social History (Rev
[2022-09-17 15:05] VITALS: BP 110/68; PULSE 81; RESP 20; O2SAT 98; BMI 17.7
== END ==
PROVIDERS: PCP Family Medicine; Visit Provider Nurse Practitioner Family
DX: M51.16 Intervertebral disc disorders with radiculopathy, lumbar region (principal); M25.552 Pain in left hip; M48.50XA Collapsed vertebra, not elsewhere classified, site unspecified, initial encounter for fracture
CPT/HCPCS: 99212; G0463

== ENCOUNTER → 2022-09-21 14:42 | Day surgery (SDC) | payer MEDICARE, OTHER, SELFPAY ==
[2022-09-21 15:08] VITALS: BP 144/91; PULSE 87; RESP 20; TEMP 36.8; O2SAT 96; BMI 17.6
[2022-09-21 15:17] VITALS: BP 147/98; PULSE 89; RESP 18; O2SAT 98
[2022-09-21 15:21] VITALS: BP 147/98; PULSE 89; RESP 18; O2SAT 97
--- NOTE | 2022-09-21 15:31 | EXP.PAIN.PRO ---
Procedure Date: 09/21/22 Time: 15:00 Anesthesiologist:: Frandy Clark CRNA Complications:: None Pre-procedure Diagnosis:: Left sacroiliitis Post-procedure Diagnosis:: Same. Indications for Procedure:: This patient is a very pleasant 72-year-old female comes our clinic today for scheduled left intra-articular hip injection. Upon examination the patient has extreme point tenderness and pain covering the left posterior hip area. Also, including the left lower lumbar area. Patient denies any groin pain. Patient denies radicular symptoms. Discussed in detail with the patient regarding proposed injection. We will change the injection to left sacroiliac joint injection of cortisone and numbing medicine. Patient wishes to proceed. This was discussed with her and her grandson. Procedure Details:: Procedure: Left sacroiliac injection under fluoroscopy Informed consent was obtained and the risk and benefits of the procedure were explained to the patient.~ The patient was taken to the procedure room and noninvasive monitors were placed including noninvasive blood pressure cuff and pulse oximeter.~ The patient was placed prone on the procedure table.~ The~ left hip was cleansed using Betadine as a cleansing solution.~ C-arm fluorosocpy was used to view the left SI joint.~ The skin and subcutaneous tissues were anesthetized using Lidocaine 1.5% and a 25-gauge needle.~ After this, a 22-gauge spinal needle was inserted under fluoroscopic guidance into the inferior aspect of the left SI joint.~ Omnipaque dye was injected and a good spread was seen throughout the joint.~ After this, approximately 5 mL of bupivacaine 0.25% and Depo-Medrol 40 mg was incrementally injected into the sacroiliac joint.~ The patient tolerated the procedure well with no complications.~ The patient was observed in the Pain Clinic for a period of 30-45 minutes, then discharged home neurologically intact.~ Plan and Disposition:: Patient was discharged without incident. Also, patient ambulated without pain following injection.
== END | disposition home or self-care (01) ==
PROVIDERS: PCP Family Medicine; Visit Provider Nurse Anesthetist, Certified Registered
DX: M46.1 Sacroiliitis, not elsewhere classified (principal)
CPT/HCPCS: 27096; G0260; J1040

== ENCOUNTER → 2022-10-04 09:46 | Outpatient (CLI) | payer MEDICARE, OTHER, SELFPAY ==
--- NOTE | 2022-10-04 09:54 | XR_ITS ---
FINAL REPORT CLINICAL HISTORY: hip fracture COMPARISON: July 06, 2022 FINDINGS: RIGHT HIP Two views of the right hip with an AP pelvis were obtained. There are postoperative changes from total joint prosthesis. Anatomical alignment is maintained. The bones are osteopenic. No soft tissue abnormality is seen. IMPRESSION: Total joint prosthesis with anatomic alignment. Osteopenia. Reviewed, Interpreted and Dictated by Cecilio Guzman MD Transcribed by Deisy Woodward Authenticated and [facility]
== END ==
PROVIDERS: PCP Family Medicine; Visit Provider Physician Assistant Surgical
DX: M25.551 Pain in right hip (principal)
CPT/HCPCS: 73502

== ENCOUNTER → 2022-10-16 14:18 | Outpatient (POV) | payer MEDICARE, OTHER, SELFPAY ==
[2022-10-16 14:40] VITALS: BP 95/53; PULSE 88; RESP 20; BMI 17.7
--- NOTE | 2022-10-16 16:16 | EXP.PAIN.SOA ---
[facility] Pain Management SOAP Note Subjective:: Patient is a pleasant 72-year-old female who presents today for follow-up. We are currently treating the patient for degenerative disc disease of lumbar spine with chronic compression fractures at L2 and L3, low back pain. Patient states her pain is a 0 out of 10 at today's visit however she states she has been taking a friend's diclofenac twice a day to 3 times a day and it has provided significant improvement. Patient does state that she has a history of only 1 kidney and denies having any recent lab work to check her kidney function. Patient previously had imaging that showed chronic compression fractures at L2 and L3. At her last visit we did order the patient a back brace however she states she has not been able to tolerate wearing this due to it rubbing against her spine. Patient denies any new trauma or injury. Patient denies any change to location or type of pain she experiences. Patient is currently managed with gabapentin 100 mg twice a day from an outside provider. Patient denies any side effects from this medication. She is prescribed a compounding cream however she states that when they contacted her she did not have additional money to order this. Patient's daughter is present during today's visit and states they will contact them back to order this medication. Her Ascencion is [id number]. Is been reviewed and appropriate. Review of Systems: General: No recent weight changes, no fever, no sleep disturbances Respiratory: No cough, no shortness of air, no recurring pulmonary infections Cardiovascular/peripheral vascular: No chest pain, no palpitations, no edema, no shortness of breath Gastrointestinal: No new onset incontinence, normal bowel movements reported Genitourinary: No new onset incontinence Musculoskeletal: Low back pain Psychiatric: [Normal mood/affect] Neurological: [Denies weakness in extremities], [denies balance issues] Objective:: Physical Exam: General: Alert and oriented x3, no acute distress, pleasant and cooperative Lungs: Respirations even and unlabored, symmetrical chest expansion Eyes: PERRL Musculoskeletal: Flexion and extension of lumbar [spine] somewhat guarded secondary to pain, [antalgic gait noted] Neurological: Speech clear, no gross sensory deficit Assessment:: Degenerative disc disease of lumbar spine with lumbar radiculopathy symptoms, chronic compression fractures at L2 and L3, low back pain, chronic pain Plan:: Patient is experiencing significant pain related to chronic compression fractures. Patient has limited range of motion of her lumbar spine during today's visit. I have counseled the patient to discontinue all use of the diclofenac due to her 1 functioning kidney. I have discussed with her to make a primary care provider appointment and have updated labs drawn to check her kidney function. I will order the patient [place] 5 mg twice daily and provide a 1 month supply of this medication. We will follow-up with the patient in 1 month for reevaluation of symptoms, medication refill and follow-up. Patient has been advised of risks of oversedation with the prescribed medication. Narcan has been offered to the patient in the event of oversedation. Patient has been advised that a family member should also be educated regarding administration of Narcan. Patient has been instructed to contact the clinic with any concerns before the next appointment. Dr. Galvan has reviewed this note and agrees with this plan of care. This note was dictated using voice recognition software and make contain errors or omissions. [facility] Disclaimer: The information contained in this section may have been updated after the patient was seen, as this information can be updated by other users. Medical History Abnormal ankle brachial index (VALERY) Aneurysm CAD (coronary artery disease) Claudication CVA (cerebral vascular accid
== END | disposition home or self-care (01) ==
PROVIDERS: PCP Family Medicine; Visit Provider Nurse Practitioner Family
DX: M51.16 Intervertebral disc disorders with radiculopathy, lumbar region (principal); M48.56XA Collapsed vertebra, not elsewhere classified, lumbar region, initial encounter for fracture; F17.210 Nicotine dependence, cigarettes, uncomplicated
CPT/HCPCS: 99212; G0463

== ENCOUNTER 2022-12-22 23:33 | Inpatient (IN) | payer MEDICARE, OTHER, SELFPAY ==
[2022-12-22 23:33] VITALS: BP 137/77; PULSE 54; RESP 16; TEMP 36.6; O2SAT 92; BMI 15.4
--- NOTE | 2022-12-22 23:43 | XR_ITS ---
PROCEDURE INFORMATION: Exam: XR Chest Exam date and time: 12/22/2022 11:57 PM Age: 72 years old Clinical indication: Pain; Chest pressure; Additional info: Stemi TECHNIQUE: Imaging protocol: Radiologic exam of the chest. Views: 1 view. COMPARISON: No relevant prior studies available. FINDINGS: Limitations: Evaluation is slightly limited due to multiple external overlying electrodes and transcutaneous pads. Lungs: Lungs are clear, with no consolidation or pulmonary edema. Pleural spaces: Unremarkable. No pleural effusion. No pneumothorax. Heart/Mediastinum: Cardiac size is within normal limits. Prominent coronary artery calcifications versus stents. Bones/joints: No acute osseous abnormality. IMPRESSION: No acute findings.
--- NOTE | 2022-12-22 23:51 | PC.NURSE ---
2333: Dr. Guthrie at bedside. 2345: OLIVER Corrales HOSPITALIST AT BEDSIDE SEEING PATIENT
[2022-12-22 23:53] LABS: Coronavirus 19, PCR Not Detected (NotDetected); Influenza A, PCR Not Detected (NotDetected); Influenza B, PCR Not Detected (NotDetected)
[2022-12-22 23:56] VITALS: O2SAT 93
[2022-12-23] VITALS (30 sets, daily range): BP systolic 112–206; BP diastolic 46–114; PULSE 54–101; RESP 16–24; TEMP 35.9–36.7; O2SAT 94–100; BMI 15.3
--- NOTE | 2022-12-23 | IR_ITS ---
APPROVED REPORT Patient Location: [facility] Coordinator: KALI King RT (R) PROCEDURES 1. Left heart catheterization 2. Selective coronary arteriography 3. Left ventriculography 4. Thrombectomy of the right coronary artery 5. PTCA/stent of the right coronary artery INDICATION 1. Acute myocardial infarction, 2. Coronary artery disease SCAI INDICATION Patient is 72-year-old white female with known coronary artery disease who presented with an acute myocardial infarction. Sudden onset of chest pain. Inferior elevation with bradycardia and high degree block. Secondary to this referred directly for left heart catheterization Informed consent was obtained prior to the procedure. COMPLICATIONS None Estimated Blood Loss: Less than 10 ml TECHNIQUE One percent lidocaine was used to anesthetize the right groin. The right femoral artery was accessed via the Seldinger technique. A 6-Belgian sheath was placed in the right femoral artery. Javad right #4 guide catheter, Javad left #4 and a pigtail catheter were used for the procedure. ANGIOGRAPHIC RESULTS The left main artery Was angiographically normal The left anterior descending artery Had a stent in its proximal portion. This was a long stent that was patent. Smooth 30% mid stenosis. Normal flow into the distal vessel The circumflex artery Had a stent in its proximal portion. The stent was free of disease. Smooth 20% mid stenosis The right coronary artery Large and dominant. The right coronary artery had stents throughout the proximal and mid and distal vessel. There was 100% proximal in-stent occlusion with PATRICIA 0 flow into the mid and distal vessel The MOTA ventriculogram reveals Preserve normal left ventricular systolic function at 55 to 60%. Mild apical wall hypokinesis. No noted mitral insufficiency and no gradient on pullback of the catheter The left ventricular end-diastolic pressure 20 I started with a 6 Belgian sheath. I immediately went into the right coronary artery. The right coronary artery was 100% occluded in-stent in the proximal portion. Heparin had been given in the emergency room. ACT was checked. ACT was 350. Easily crossed with a Choice PT wire. At that time I performed angioplasty with a 2.0 x 20 mm balloon at 10 garett for 15 seconds. This resulted in scientology of PATRICIA-3 flow in the right coronary artery. Heavy clot burden was noted. Secondary to this I went in with the thrombectomy device and performed thrombectomy throughout the proximal and mid right coronary artery. This resulted in brisk PATRICIA-3 flow. There was residual stenosis noted throughout the proximal and mid vessel as well as focal distal stenosis after the stent. I first stented with a 3.0 x 38 mm resolute [place] drug-eluting stent in the mid/distal vessel taking that up to 20 garett for 10 seconds. I then stented the proximal/mid vessel with a 3.5 x 38 mm resolute Joseph drug-eluting stent overlapping the proximal portion of my first stent at 18 garett for 10 seconds. There was some plaque shift just distal prior to the bifurcation. I placed 1 more 3.0 x 12 mm resolute [place] drug-eluting stent in the distal right coronary artery overlapping the distal portion of my first stent taking that up to 16 garett for 10 seconds and meshing the stents together at 20 garett for 5 seconds. This resulted in 0% residual stenosis and brisk flow into the huge posterior descending artery and posterior lateral branch with no significant stenosis noted throughout the right coronary artery Right, retrograde femoral arteriogram performed. Sheath placed in the right common femoral artery. Secondary to this an Angio-Seal device was deployed without difficulty
--- NOTE | 2022-12-23 00:11 | PC.NURSE ---
Pt headed to [facility] at this time.
--- NOTE | 2022-12-23 00:11 | PC.NURSE ---
REPORT GIVEN TO Glenn MURCIA RN. Alonzo GLASGOW, EMT AND [employer]AS[employer] SNOW SUPERVISOR TRANSPORTING PATIENT TO ELECTRONIC WARFARE SPECIALIST AT THIS TIME.
--- NOTE | 2022-12-23 00:13 | HMH.EDWEAK ---
Discharge Plan Disposition Patient Disposition: Admitted As Inpatient Clinical Impressions Clinical Impression: ST elevation (STEMI) myocardial infarction Discharge ED Provider: [place] (ED)Zane General Chief complaint: Weakness Stated complaint: WEAKNESS Time Seen by Provider: 12/22/22 23:35 Mode of Arrival: EMS Source of Information: Patient, Relative, EMS and Medical Record Limitations: No Limitations Description of Symptoms (Recalled from ER Triage Doc. by RN): SUDDEN ONSET OF WEAKNESS. PAIN IN CHEST History of Present Illness HPI Narrative: sudden onset of weakness and some chest pain tonight - hx of cad and aaa- MD Complaint: generalized weakness Onset (ago): hour(s) Duration: constant Location: generalized Migration: none Severity: moderate Associated symptoms: denies other symptoms Related Data Allergies Allergy/AdvReac Type Severity Reaction Status Date / Time bacitracin Allergy Mild Verified 12/22/22 23:42 [From Neosporin ([id number])] latex Allergy Mild Verified 12/22/22 23:42 neomycin Allergy Mild Verified 12/22/22 23:42 [From Neosporin ([id number])] polymyxin B Allergy Mild Verified 12/22/22 23:42 [From Neosporin ([id number])] [facility] Disclaimer: The information contained in this section may have been updated after the patient was seen, as this information can be updated by other users. Social History Smoking Status: Current every day smoker alcohol intake: never current occupational status: retired Travel in the last 8 weeks: None ROS Obtained: Yes All systems reviewed & no additional complaints except as documented Physical Exam General General appearance: alert Head Head exam: normocephalic Eye Eye exam: Present PERRL and EOMI ENT ENT exam: Present mucous membranes moist Neck Neck exam: Present trachea midline Respiratory Respiratory exam: Present normal lung sounds bilaterally Cardiovascular Cardiovascular exam: Present regular rate, systolic murmur and +S4 Abdominal Exam Abdominal exam: Present soft Extremities Exam Extremities exam: Present full ROM; Absent calf tenderness Neurological Exam Neurological exam: Present alert, oriented X3 and CN II-XII intact; Absent motor sensory deficit Psychiatric Psychiatric exam: Present normal affect Skin Skin exam: Absent rash Medical Decision Making Medical Records Medical records reviewed: Yes I reviewed the patient's medical records. Ascencion Inquiry Pt receiving controlled substance: No Vital Signs: 12/22/22 23:33 12/22/22 23:56 Temperature 97.9 F Temperature Source Oral Pulse Rate [Right Brachial] 54 L Respiratory Rate 16 Blood Pressure [Right Arm] 137/77 Blood Pressure Mean [Right Arm] 97 Blood Pressure Source [Right Arm] Automatic Cuff Blood Pressure Position [Right Arm] Supine 02 Sat by Pulse Oximetry 92 L 93 L Oxygen Delivery Method Room Air Nasal Cannula Oxygen Flow Rate (LPM) 2 Lab Data Lab results reviewed: Yes I reviewed the patient's lab results. Lab Results 12/22/22 23:45: SARS-CoV-2 (PCR) Not detected, Influenza A Untype (PCR) Not detected, Influenza Type B (PCR) Not detected 12/22/22 23:50: WBC 9.2, RBC 4.67, Hgb 13.1, Hct 42.1, MCV 90.1, MCH 28.0, MCHC 31.1 L, RDW 17.0, Plt Count 218, MPV 8.9, Neut % (Auto) 75.5, Lymph % (Auto) 16.3, [place] % (Auto) 4.7, Eos % (Auto) 2.3, Baso % (Auto) 1.1, Neut # (Auto) 6.9, Lymph # (Auto) 1.5, [place] # (Auto) 0.4, Eos # (Auto) 0.2, Baso # (Auto) 0.1 12/22/22 23:50: Sodium 140, Potassium 4.0, Chloride 112 H, Carbon Dioxide 25, Anion Gap 7.0, BUN 12, Creatinine 1.20 H, Estimated Creat Clear 27, Estimated GFR 44 L, Est GFR ( Amer) 53 L, Glucose 111 H, Calcium 8.6 Result diagrams: 12/22/22 23:50 12/22/22 23:50 Orders (Tests/Meds): ED MEDICATIONS Generic Name Dose Route Start Last Admin Trade Name Freq PRN Reason Stop Dose Admin Diphenhydramine HCl
--- NOTE | 2022-12-23 00:19 | EXP.HP ---
History of Present Illness *Admission Date: 12/23/22 *Reason for visit:: chest pain *History of present illness: This is a 72-year-old female with a past medical history of CVA, hypertension, TAA who presents to the emergency department today with complaints of weakness and chest pain. Family bedside reports that after dinner she became weak and sick feeling. She describes some chest pain. upon EMSs arrival she was noted to have ST elevation on her EKG. patient arrived here with an acute STEMI. Patient taken to the Maintenance Journeyman upon arrival. According to son and daughter, patient has been evaluated recently for thoracic aneurysm at and it is reported that they would like to do surgery once she is strong enough to withstand surgery. On my assessment patient does not complain of any ripping or tearing sensation in her back or chest. Vital signs have been stable prior to [facility]. Patient underwent successful PCI for 100% RCA with stend placement. Post film laboratory technician, patient was hypertensive upwards 200 systolic. After consult with Cardiology, she was placed on Nitro gtt for hypertensive management. She is admited to the hospitalist service for further evaluation and management. [facility] Disclaimer: The information contained in this section may have been updated after the patient was seen, as this information can be updated by other users. Medical History (Updated 12/23/22 @ 05:39 by Cynthia Guadalupe RN) AAA (abdominal aortic aneurysm) Abnormal ankle brachial index (VALERY) CAD (coronary artery disease) Contracture of right hand CVA (cerebral vascular accident) HLD (hyperlipidemia) PAD (peripheral artery disease) Renal artery stenosis Weakness due to acute cerebrovascular accident (CVA) Weakness of right arm Weakness of right hand Surgical History (Updated 12/23/22 @ 05:32 by Cynthia Guadalupe RN) H/O cardiac catheterization History of right hip hemiarthroplasty Stented coronary artery Social History (Updated 12/23/22 @ 05:34 by Cynthia Guadalupe RN) Smoking Status: Current every day smoker alcohol intake: never current occupational status: retired Travel in the last 8 weeks: None Review of Systems Review of Systems Review of systems:: pertinent systems reviewed and negative unless documented below *Cardiovascular Cardiovascular: Reports chest pain Meds Home Medications and Allergies Home Medications Medication Instructions Recorded Confirmed Type alendronate 70 mg tablet 70 mg PO FR Osteoporosis 12/23/22 12/23/22 History atorvastatin 40 mg tablet 40 mg PO DAILY Cholesterol 12/23/22 12/23/22 History carvedilol 3.125 mg tablet 3.125 mg PO BID Hypertension 12/23/22 12/23/22 History ciprofloxacin HCl 500 mg tablet 500 mg PO BID Infection 12/23/22 12/23/22 History donepezil 10 mg tablet 10 mg PO HS MEMORY 12/23/22 12/23/22 History gabapentin 100 mg capsule 100 mg PO BID Pain 12/23/22 12/23/22 History omeprazole 20 mg capsule,delayed 20 mg PO DAILY GERD 12/23/22 12/23/22 History release oxcarbazepine 300 mg tablet 300 mg PO BID NEURALGIA 12/23/22 12/23/22 History trazodone 50 mg tablet 25 mg PO HS SLEEP 12/23/22 12/23/22 History valsartan 80 mg tablet 80 mg PO DAILY Hypertension 12/23/22 12/23/22 History New Prescriptions to Start Prescriptions: Allergies Allergy/AdvReac Type Severity Reaction Status Date / Time bacitracin Allergy Mild Verified 12/22/22 23:42 [From Neosporin ([id number])] latex Allergy Mild Verified 12/22/22 23:42 neomycin Allergy Mild Verified 12/22/22 23:42 [From Neosporin ([id number])] polymyxin B Allergy Mild Verified 12/22/22 23:42 [From Neosporin ([id number])] Exam Data for Last 24 hours Vital signs and Labs for Last 24 Hours: Temp Pulse Resp BP Pulse Ox 97.9 F 54 L 16 137/77 93 L 12/22/22 23:33 12/22/22 23:33 12/22/22 23:33 12/22/22 23:33 12/22/22 23:56 I & O for Last 24 hours: Intake & Output 02
[2022-12-23 00:22] LABS: Basophils # 0.1 K/mm3 (0-0.2); Basophils % 1.1 % (0.1-2.0); Eosinophils # 0.2 K/mm3 (0.0-0.4); Eosinophils % 2.3 % (0.1-12.0); Hematocrit 42.1 % (37.0-47.0); Hemoglobin 13.1 g/dL (12.2-16.2); Lymphocytes # 1.5 K/mm3 (0.7-4.5); Lymphocytes % 16.3 % (10-50); Mean Corpuscular HGB Conc 31.1 g/dL (31.8-35.4); Mean Corpuscular Volume 90.1 fl (81-99); Mean Platelet Volume 8.9 fl (7.4-10.4); Monocytes # 0.4 K/mm3 (0.1-1.0); Monocytes % 4.7 % (1.7-9.3); Neutrophils # 6.9 K/mm3 (1.8-7.8); Neutrophils % 75.5 % (37.0-80.0); Platelet Count 218 K/mm3 (142-424); Red Blood Count 4.67 M/mm3 (4.20-5.40); White Blood Count 9.2 K/mm3 (4.8-10.8)
[2022-12-23 00:32] LABS: Blood Urea Nitrogen 12 mg/dl (7-17); Calcium 8.6 mg/dl (8.4-10.2); Carbon Dioxide 25 mmol/L (22.0-30.0); Chloride 112 mmol/L (98-107); Creatinine Clearance Estimated 27 mL/min (50-200); Estimated Glomerular Filt Rate 44 ml/min (>60); GFR (African American) 53 ML/MIN (>60); Glucose 111 mg/dl (74-100); Sodium 140 mmol/L (136-145)
[2022-12-23 00:43] LABS: Troponin I 0.06 ng/ml (0.00-0.034)
--- NOTE | 2022-12-23 00:48 | PC.NURSE ---
NOTIFIED Renny RAY RN THAT PATIENT'S MED REC. WAS UNABLE TO BE COMPLETED WHILE PATIENT WAS IN ED.
[2022-12-23 01:05] LABS: CATHL Activated Clotting Time 350 SEC (74-125)
--- NOTE | 2022-12-23 01:15 | ECG_ITS ---
APPROVED REPORT Exam: Resting ECG HR:49 bpm ECG Measurements Heart Rate 49 AXES WA 230 P 52 QRSd 80 QRS 55 QT 437 T 91 QTc 407 Conclusion SINUS BRADYCARDIA WITH FIRST DEGREE AV BLOCK MODERATE ST DEPRESSION [0.05+ mV ST DEPRESSION] ABNORMAL ECG UNCONFIRMED REPORT Electronically signed by : Rush Link MD 12/24/2022 18:55:59
--- NOTE | 2022-12-23 01:28 | PC.NURSE ---
Pt arrived to floor via stretcher @ [id number]
--- NOTE | 2022-12-23 02:42 | PC.NURSE ---
Upon admission, Pt A&OX4, very drowsy. Pt hypertensive 182/91. ASSEMBLER FINAL made aware. Nitro gtt started @ 0224. Unable to obtain oral temp, rectal temp 96.6 @0205. Warm blankets placed on pt. Gann catheter inserted at 0200 with 150 ml dark yellow urine out. IV lasix given at 0210. Right femoral cath site dsg c/d/i.
[2022-12-23 02:44] LABS: Microscopic, Urine URINE MICROSCOPIC (MICROSCOPIC)
[2022-12-23 02:47] LABS: Appearance,Urine CLEAR (Clear); Bilirubin,Urine Negative (Negative); Blood, Urine TRACE-I (Negative); Color,Urine YELLOW (Yellow); Glucose,Urine (UA) Negative (Negative); Ketones,Urine Negative (Negative); Leukocyte Esterase,Urine Negative (Negative); Nitrate,Urine Negative (Negative); PH,Urine 6.5 (5.0-8.5); Protein,Urine Negative (Negative); Urobilinogen,Urine 0.2 EU/dl (0.2)
--- NOTE | 2022-12-23 03:00 | PC.NURSE ---
0300 pt c/o feeling SOA. O2 sat 98-100%. Lung sounds with less crackles since lasix. Pt placed on 2L NC for comfort. TAMELA lozada made aware, came to BS to assess pt. No new orders at this time.
[2022-12-23 03:27] LABS: RBC,Urine Occasional #/hpf (0-3); Squamous Epithelial Cell,Urine Occasional #/hpf (0-5)
--- NOTE | 2022-12-23 04:11 | PC.NURSE ---
0248 6 beat run V tach noted on tele. CHANGE ROOM ATTENDANT made aware.
--- NOTE | 2022-12-23 04:36 | PC.NURSE ---
Pt unable to tell me what medications she takes. Family at bedside also unaware of pts home meds.
--- NOTE | 2022-12-23 04:49 | PC.NURSE ---
Pt noted to have 19 beat run vtach on telemetry. BRIDGE LEVERMAN made aware. New orders received and carried out for mag sulfate 2gm , see mar
[2022-12-23 05:16] LABS: Basophils # 0.1 K/mm3 (0-0.2); Basophils % 0.9 % (0.1-2.0); Eosinophils # 0.1 K/mm3 (0.0-0.4); Eosinophils % 1.4 % (0.1-12.0); Hematocrit 36.5 % (37.0-47.0); Hemoglobin 11.8 g/dL (12.2-16.2); Lymphocytes # 1.2 K/mm3 (0.7-4.5); Mean Corpuscular HGB Conc 32.4 g/dL (31.8-35.4); Mean Corpuscular Hemoglobin 28.7 pg (27.0-31.2); Mean Corpuscular Volume 88.7 fl (81-99); Mean Platelet Volume 8.9 fl (7.4-10.4); Monocytes # 0.4 K/mm3 (0.1-1.0); Monocytes % 5.4 % (1.7-9.3); Neutrophils # 4.9 K/mm3 (1.8-7.8); Neutrophils % 74.3 % (37.0-80.0); Platelet Count 176 K/mm3 (142-424); Red Blood Count 4.11 M/mm3 (4.20-5.40); Red Cell Distribution Width 17.2 % (11.5-17.5); White Blood Count 6.7 K/mm3 (4.8-10.8)
[2022-12-23 05:21] LABS: Chloride 116 mmol/L (98-107); Sodium 139 mmol/L (136-145)
[2022-12-23 05:23] LABS: Alanine Aminotransferase 18 U/L (12-78); Aspartate Amino Transferase 57 U/L (14-36); Bilirubin,Total 0.3 mg/dl (0.2-1.3); Blood Urea Nitrogen 11 mg/dl (7-17); Creatinine Clearance Estimated 32 mL/min (50-200); Estimated Glomerular Filt Rate 54 ml/min (>60); GFR (African American) 66 ML/MIN (>60)
[2022-12-23 05:24] LABS: Albumin Level 2.9 g/dl (3.5-5.0); Albumin/Globulin Ratio 0.9 (1.1-1.8); Alkaline Phosphatase 86 U/L (38-126); Calcium 7.7 mg/dl (8.4-10.2); Carbon Dioxide 21 mmol/L (22.0-30.0); Chol/HDL Ratio 2.8 (1-3.5); Cholesterol 120 mg/dl (140-200); Globulin 3.3 g/dL (1.3-3.2); Glucose 114 mg/dl (74-100); HDL Cholesterol 43 mg/dl (40-60); Total Protein,Serum 6.2 g/dl (6.3-8.2); Triglycerides 85 mg/dl (30-150); VLDL Cholesterol 17 mg/dL (0-40)
--- NOTE | 2022-12-23 05:35 | PC.NURSE ---
Spoke with Ana Erwin NP at this time. States to only turn nitro gtt back on if SBP 160-170.
[2022-12-23 05:36] LABS: Direct LDL Cholesterol 57.33 mg/dL (100-129)
[2022-12-23 08:24] LABS: Magnesium 1.7 mg/dl (1.6-2.3)
--- NOTE | 2022-12-23 10:20 | HMH.PHAINT1 ---
Pharmacy Intervention Comments: MEDICATION RECONCILIATION COMPLETED ON PATIENT USING EXTERNAL FILL HISTORY FROM PHARMACY AND KIRBY REPORT. -JONY QUAN, JESD
--- NOTE | 2022-12-23 17:20 | PC.NURSE ---
pt was up to the chair for a few hours this afternoon. was able to go back to bed with assist x 1 (side stepping from bed to chair) lungs are clear throughout, bowel sounds are active. pt denies cp this shift. pt has had ectopy noted on tele but was not symptomatic. nad noted. pt has had family at bedside off and on throughout the shift.
--- NOTE | 2022-12-23 20:12 | XR_ITS ---
PROCEDURE INFORMATION: Exam: XR Chest Exam date and time: 12/23/2022 3:46 AM Age: 72 years old Clinical indication: Shortness of breath TECHNIQUE: Imaging protocol: Radiologic exam of the chest. Views: 1 view. COMPARISON: CR XR CHEST PORTABLE 12/22/2022 11:57 PM FINDINGS: Lungs: Unremarkable. No consolidation. Pleural spaces: Unremarkable. No pleural effusion. No pneumothorax. Heart/Mediastinum: Cardiomediastinal silhouette is stable with a probable tortuous and/or ectatic thoracic aorta. Vasculature: Prominent coronary artery calcification versus stent again seen over the right heart. Bones/joints: No acute osseous abnormality. IMPRESSION: No acute findings.
[2022-12-24] VITALS (9 sets, daily range): BP systolic 133–157; BP diastolic 70–99; PULSE 60–90; RESP 15–26; TEMP 36.4–36.7; O2SAT 97–100; BMI 17.1; BMI 16.9
--- NOTE | 2022-12-24 02:51 | PC.WOUNDNOTE ---
2 small open areas noted to coccyx less than 1 cm in size.
--- NOTE | 2022-12-24 04:25 | PC.NURSE ---
Pt has rested well this shift, has had no complaints. SBP has been 146-150. NSR with inverted t waves per tele. Pt on RA and uses 1-2 L as needed for comfort. O2 sats have been 98-99%. Right femoral cath site dressing c/d/i/. Pt ambulated to bathroom this shift, tolerated fair. Did have some SOA with ambulation. Call light within reach.
[2022-12-24 06:51] LABS: Basophils # 0.1 K/mm3 (0-0.2); Basophils % 0.9 % (0.1-2.0); Eosinophils # 0.1 K/mm3 (0.0-0.4); Eosinophils % 2.1 % (0.1-12.0); Hematocrit 36.8 % (37.0-47.0); Hemoglobin 11.6 g/dL (12.2-16.2); Lymphocytes # 1.1 K/mm3 (0.7-4.5); Lymphocytes % 17.8 % (10-50); Mean Corpuscular HGB Conc 31.5 g/dL (31.8-35.4); Mean Corpuscular Hemoglobin 27.7 pg (27.0-31.2); Mean Corpuscular Volume 87.7 fl (81-99); Mean Platelet Volume 9.2 fl (7.4-10.4); Monocytes # 0.5 K/mm3 (0.1-1.0); Monocytes % 7.4 % (1.7-9.3); Neutrophils # 4.3 K/mm3 (1.8-7.8); Neutrophils % 71.8 % (37.0-80.0); Platelet Count 197 K/mm3 (142-424); Red Blood Count 4.19 M/mm3 (4.20-5.40); Red Cell Distribution Width 17.1 % (11.5-17.5)
[2022-12-24 07:07] LABS: Chloride 116 mmol/L (98-107); Sodium 140 mmol/L (136-145)
[2022-12-24 07:08] LABS: Potassium 3.8 mmoL/L (3.5-5.1)
[2022-12-24 07:10] LABS: Alanine Aminotransferase 17 U/L (12-78); Albumin/Globulin Ratio 0.9 (1.1-1.8); Alkaline Phosphatase 74 U/L (38-126); Anion Gap 6.8 mEq/L (5-15); Aspartate Amino Transferase 69 U/L (14-36); Bilirubin,Total 0.5 mg/dl (0.2-1.3); Blood Urea Nitrogen 10 mg/dl (7-17); Calcium 7.7 mg/dl (8.4-10.2); Carbon Dioxide 21 mmol/L (22.0-30.0); Creatinine Clearance Estimated 35 mL/min (50-200); Estimated Glomerular Filt Rate 61 ml/min (>60); GFR (African American) 74 ML/MIN (>60); Globulin 3.2 g/dL (1.3-3.2); Glucose 84 mg/dl (74-100); Total Protein,Serum 6.2 g/dl (6.3-8.2)
--- NOTE | 2022-12-24 08:19 | EXP.CARD.CON ---
History of Present Illness History of Present Illness Consult date: 12/24/22 Requesting physician: Matthwe Santos Consult reason: chest pain Chief complaint: STEMI Additional Medical History:: 1. CAD A. previous JAX to LAD, CX and RCA B. STEMI, 12/23/2022, With subsequent atherectomy, angioplasty and stenting of proximal and distal large dominant RCA 2. Thoracic aortic aneurysm/abdominal aortic aneurysm, reportedly 6.8 x 6.2 cm with plans for surgical treatment when patient's weight and strength have improved. 3. Tobacco use, ongoing 4. Hypertension 5. Hyperlipidemia 6. Prior CVA with right-sided weakness History of present illness: This is a 72-year-old female with a past medical history of CVA, hypertension, TAA who presents to the emergency department today with complaints of weakness and chest pain.? Family bedside reports that after dinner she became weak and sick feeling.? She describes some chest pain.? upon EMSs arrival she was noted to have ST elevation on her EKG. ? patient arrived here with an acute STEMI.? Patient taken to the [facility] upon arrival. ?According to son and daughter, patient has been evaluated recently for thoracic aneurysm at and it is reported that they would like to do surgery once she is strong enough to withstand surgery.? On my assessment patient does not complain of any ripping or tearing sensation in her back or chest.? Vital signs have been stable prior to [employer] [facility]. Patient underwent successful PCI for 100% RCA with stend placement. Post construction or leak gang laborer, patient was hypertensive upwards 200 systolic. After consult with Cardiology, she was placed on Nitro gtt for hypertensive management. She is admited to the hospitalist service for further evaluation and management. The above per EMILIE Epstein, for Dr. Santos Events as noted above reviewed with the patient and she endorses the same. She is not a great historian. She denies any further chest pain, pressure or tightness overnight. She relates once her weight and strength have improved then surgery for her TAA/AAA will be planned. Review of records from Dr. Snyder office notes from September 2022 show that the TAA/AAA is in the range of 6-6.5 cm with the patient being not at optimal health for surgery at that time. Records indicate that she would have had a follow-up last month when this month. [facility] Disclaimer: The information contained in this section may have been updated after the patient was seen, as this information can be updated by other users. Medical History (Updated 12/24/22 @ 08:34 by VINCENZO Pino) AAA (abdominal aortic aneurysm) Abnormal ankle brachial index (VALERY) CAD (coronary artery disease) Contracture of right hand CVA (cerebral vascular accident) HLD (hyperlipidemia) PAD (peripheral artery disease) Renal artery stenosis Weakness due to acute cerebrovascular accident (CVA) Weakness of right arm Weakness of right hand Surgical History (Updated 12/23/22 @ 05:32 by Cynthia Guadalupe, LOLA) H/O cardiac catheterization History of right hip hemiarthroplasty Stented coronary artery Social History (Updated 12/23/22 @ 05:34 by Cynthia Guadalupe RN) Smoking Status: Current every day smoker alcohol intake: never current occupational status: retired Travel in the last 8 weeks: None Review of Systems *Cardiovascular Cardiovascular: Reports chest pain and Reports dyspnea *Respiratory Respiratory: Reports dyspnea *Musculoskeletal Musculoskeletal: Reports muscle weakness and Reports stiffness Exam Data for Last 24 hours Vital signs and Labs for Last 24 Hours: Temp Pulse Resp BP Pulse Ox 98.1 F 90 18 142/70 H 100 12/24/22 07:44 12/24/22 07:44 12/24/22 07:44 12/24/22 07:44 12/24/22 07:44 Laboratory Results - last 24 hr 12/23/22 05:05: Magnesium 1.7 12/24/22 02:36: WBC 6.0, RBC 4.19 L, Hgb 11.6 L, Hct 36.8 L, MCV 87.7, MCH 27.7, MCHC 31.5 L, RDW 17.1, Plt Count 197, MPV 9.2, Neut % (Auto) 71.8, Lymph
--- NOTE | 2022-12-24 12:35 | CT_ITS ---
FINAL REPORT TECHNIQUE: Axial CT images were performed through the abdomen pelvis utilizing a CTA protocol. Coronal and sagittal reformatted images were submitted. This study was performed with techniques to keep radiation doses as low as reasonably achievable (ALARA). Individualized dose reduction techniques using automated exposure control or adjustment of mA and/or kV according to the patient's size were employed. CLINICAL HISTORY: eval AAA COMPARISON: August 2022 FINDINGS: CTA: There is an aneurysm throughout much of the abdominal aorta. The aneurysm at the level of the SMA measures up to 6.6 cm, stable from August 2022. The aortic wall is lobular and a chronic thrombosed pseudoaneurysm in this region cannot be excluded. There is perianeurysmal stranding that may represent perianeurysmal fibrosis/scarring. The celiac axis and SMA are patent. The CORTEZ is occluded at its origin with collateral filling. There are 2 right renal arteries with approximately 50% stenosis at the origin of the inferior renal artery. The left renal artery is occluded with left renal cortical thinning and delayed contrast enhancement. There is diffuse plaque a in the iliacs with mild and moderate stenoses. ABDOMEN: There are small bilateral pleural effusions. There is mild bibasilar atelectasis. The liver is normal in size and attenuation. There is gallbladder wall thickening with probable sludge or stones in the gallbladder. The spleen is unremarkable. The adrenals are normal. The pancreas is unremarkable. The right kidney enhances appropriately. No free fluid or adenopathy is identified. No findings for mechanical bowel obstruction are identified. There is widespread diverticulosis. There is no evidence of acute diverticulitis. PELVIS: The appendix is not identified. The urinary bladder is unremarkable. No free fluid, free air, abscess or adenopathy is identified. There are chronic L2 and L3 compression fractures that are stable. IMPRESSION: Stable abdominal aortic aneurysm. Lobular wall contour of the aorta of uncertain significance. Chronic thrombosed pseudoaneurysm cannot be excluded. No evidence of acute leak. Moderate stenosis of the inferior right renal artery. Occlusion of the left renal artery. Occlusion of the CORTEZ with collateral filling. Mild and moderate stenoses of the iliacs. Reviewed, Interpreted and Dictated by Juan Goodson III, MD Transcribed by Sidney Jameson Authenticated and [facility]
--- NOTE | 2022-12-24 16:40 | EXP.ACUTE.PN ---
Subjective *Date: 12/24/22 *Time: 16:40 Interval history: Patient complains of feeling dyspneic today however is stable on 1 L oxygen with saturations 100%. Tolerating p.o. intake. Afebrile. No chest pain. No nausea or vomiting. Pleasant and oriented today. Family at bedside. Continues to require monitoring because of her STEMI. Medical Exam Vital signs and Labs for Last 24 Hours: Vital Signs Temp Pulse Pulse Pulse Resp BP Pulse Ox 12/24/22 12:00 80 12/24/22 14:54 97.6 F 77 18 157/98 H 100 12/24/22 11:10 97.5 F L 84 20 147/87 H 100 12/24/22 08:00 100 12/24/22 08:00 80 12/24/22 07:44 98.1 F 90 18 142/70 H 100 12/24/22 04:00 80 12/24/22 04:00 97.6 F 80 15 148/88 H 98 12/24/22 00:00 60 12/24/22 00:00 60 12/23/22 23:59 97.6 F 74 20 150/85 H 99 12/23/22 20:00 80 12/23/22 20:00 97.9 F 76 16 146/85 H 99 Intake and Output 12/24/22 12/24/22 12/24/22 07:59 15:59 23:59 Intake Total 860 / 1100 240 / 1100 Output Total 0 / 0 0 / 0 Balance 860 / 1100 240 / 1100 Intake: Intake, Oral Amount 240 / 480 240 / 480 Intake, Total IV Amount 620 / 620 0.9 % Sodium Chloride 1,000 ml 620 / 620 @ 50 mls/hr IV .Q20H [facility] Rx#: [id number] Output: Output, Urine Amount 0 / 0 0 / 0 Other: Number of Unmeasured Voids 1 1 Weight 45.405 kg 45 kg Patient Weight 12/24/22 23:59 Weight 45 kg Laboratory Results - last 24 hr 12/24/22 02:36: WBC 6.0, RBC 4.19 L, Hgb 11.6 L, Hct 36.8 L, MCV 87.7, MCH 27.7, MCHC 31.5 L, RDW 17.1, Plt Count 197, MPV 9.2, Neut % (Auto) 71.8, Lymph % (Auto) 17.8, [place] % (Auto) 7.4, Eos % (Auto) 2.1, Baso % (Auto) 0.9, Neut # (Auto) 4.3, Lymph # (Auto) 1.1, [place] # (Auto) 0.5, Eos # (Auto) 0.1, Baso # (Auto) 0.1 12/24/22 02:36: Sodium 140, Potassium 3.8, Chloride 116 H, Carbon Dioxide 21 L, Anion Gap 6.8, BUN 10, Creatinine 0.90, Estimated Creat Clear 35, Estimated GFR 61, Est GFR ( Amer) 74, Glucose 84 D, Calcium 7.7 L, Magnesium 2.0 D, Total Bilirubin 0.5, AST 69 H, ALT 17, Alkaline Phosphatase 74, Total Protein 6.2 L, Albumin 3.0 L, Globulin 3.2, Albumin/Globulin Ratio 0.9 L I & O for Labs for Last 24 Hours: Intake & Output 12/21/22 12/22/22 12/23/22 12/24/22 23:59 23:59 23:59 23:59 Intake Total 1591 / 1591 1100 / 1100 Output Total 2725 / 2725 0 / 0 Balance -1134 / -1134 1100 / 1100 Weight 40.823 kg 40.82 kg 45 kg Constitutional: Present no acute distress, thin and chronically ill appearing Head: Present atraumatic and normocephalic ENT: Present normal exam Neck: Present normal inspection Respiratory: Present CTA bilaterally and normal respiratory effort; Absent accessory muscle use, rhonchi, wheezes or crackles Cardiac: Present Reg Rate and Rhythm GI: Present normal bowel sounds; Absent tenderness Extremities: Present normal inspection and full ROM Skin: Present intact; Absent erythema Neuro: Present Grossly Intact, alert, awake, oriented x 3 and moves all extremities Assessment and Plan *Assessment and plan (1) ST elevation (STEMI) myocardial infarction: Status: Acute Category: Medical Code(s): I21.3 - ST elevation (STEMI) myocardial infarction of unspecified site (2) СВЕТЛАНА (acute kidney injury): Status: Acute Category: Medical Code(s): N17.9 - Acute kidney failure, unspecified (3) Hypertension: Status: Acute Category: Medical Code(s): I10 - Essential (primary) hypertension (4) Thoracic aortic aneurysm (TAA): Status: Acute Category: Medical Code(s): I71.20 - Thoracic aortic aneurysm, without rupture, unspecified Plan Patient presented with STEMI. Hemodynamically stable overnight. Further evaluation of her aortic aneurysm today with imaging. Cardiology consulted, appreciate their recommendations. Patient remains chest pain-free. Addressing her blood pressure t
--- NOTE | 2022-12-24 17:08 | PC.NURSE ---
pt remains on 1L NC for comfort, O2 sats 100%, no complaints of pain or SOA, SBP 142-157, HR 77-90, right femoral cath site with dressing in place, C/D/I, soft to touch, has ambulated to with standby assist
--- NOTE | 2022-12-24 18:47 | CA_ITS ---
APPROVED REPORT EXAM: Comprehensive 2D, Doppler, and color-flow Echocardiogram Truck Mechanic Apprentice: Yari Ibanez CRT Ht: 5 ft 4 in Wt: 89lbs BSA: 1.39 BP: 148/88 mmHg Indications: Chest Pain, CVA/TIA, STEMI, CAD, Hyperlipidemia, Hypertension/HDD, TAA 2D Dimensions LVOT 1.65 cm (M/F) 1.5-2.5 LA Volume 17.80 mL LA Volume Index 12.50 mL/m2 (M/F) 16-34 M-Mode Dimensions RVDd 2.02 cm (0.9-2.6) LA Diam 2.68 cm (1.9-4.0) LVDd 3.54 cm (3.5-5.7) Ao Diam 3.33 cm (2.0-3.7) LVDs 2.79 cm (3.5-5.7) IVSd 1.66 cm (0.6-1.1) PWd 0.96 cm (0.6-1.1) EF (Teich) 44.00% FS 21.20% EDV (Teich) 52.30 mL TAPSE 2.04 (<1.7) ESV (Teich) 29.30 mL LV Diastology E Decel Time 160.00 (160-240 msec) E/A Ratio 0.59 MED E' 6.80 (< 7 cm/sec) MED A' 9.90 cm/s E'/MED E' Ratio 8.63 (>14) LAT E' 5.20 (<10 cm/sec) LAT A' 12.70 cm/s E/LAT E' Ratio 11.29 (>14) Aortic Valve AI PHT 294.00 ms AO Peak GR. 9.30 mmHg Mitral Valve MV E Max Yousuf. 59.00 (40-130 cm/s) MV A Velocity 99.00 (40-130 cm/s) E/A Ratio 0.59 MV Decel. Time 160.00 (160-240 ms) MV PHT 47.00 ms Pulmonary Valve PV Peak Velocity 113.00 (50-150 cm/s) Tricuspid Valve TR P. Velocity 171.00 cm/s RAP Estimate 10.00 mmHg RVSP 21.70 mmHg Left Ventricle Left atrium is mildly enlarged, left ventricle is normal size mild concentric left ventricular hypertrophy, estimated ejection fraction 45%, there is mild hypokinesis involving the basal septum and inferior wall. Diastolic parameters are inconclusive. Right Ventricle Right atrium and right ventricular normal size and contractility. Aortic Valve Aortic valve is thickened and calcified without Doppler evidence of aortic stenosis, there is trace aortic insufficiency. Mitral Valve Mitral valve is grossly normal, there is mild mitral regurgitation. Tricuspid Valve Tricuspid valve grossly normal, there is mild tricuspid regurgitation, tricuspid regurgitation jet velocity is inadequate for calculation of the right ventricular systolic pressure. Pulmonic Valve Pulmonic valve is poorly visualized. Great Vessels Aortic root is normal size. Inferior vena cava is poorly visualized. Pericardium No significant pericardial effusion noted. Conclusion 1. Mildly enlarged left atrium, normal left ventricular size, mild concentric left ventricular hypertrophy, estimated ejection fraction 45% with segmental wall motion abnormality described above, diastolic parameters are inconclusive. 2. Thickened and calcified aortic valve without Doppler evidence of aortic stenosis, there is trace aortic insufficiency. 3. Mild mitral and tricuspid regurgitation. 4. No significant pericardial effusion noted. 5. Inferior vena cava is poorly visualized. Electronically signed by : Richie Webb MD 12/24/2022 17:54:59
--- NOTE | 2022-12-24 22:22 | PC.NURSE ---
OFFICE EMPLOYEE notified that patient is requesting something to help her sleep. OFFICE EMPLOYEE stated that she would enter in orders. Informed patient, patient agreeable.
[2022-12-25] VITALS (8 sets, daily range): BP systolic 119–157; BP diastolic 67–87; PULSE 50–81; RESP 18–24; TEMP 36.5–36.8; O2SAT 96–100; BMI 18.8
--- NOTE | 2022-12-25 04:14 | PC.NURSE ---
Addendum entered by Sherita Campos RN 12/25/22 04:36: At 0436 - pt told SRNA that she was SOB . This RN went to assess patient, no changes from previous 2 assessments. Pt VS remain stable with oxygen saturations 98%. Pt appears to be anxious. Denies any CP. Reports her chest feels tight . No changes on telemetry. FLOORING INSTALLER - Hernandez Fierro. notified at this time, stated she would put in orders. Will continue to monitor. Original Note: Pt requested something to help her sleep earlier in the shift. Order given for Melatonin 5mg po. Pt has appeared to have rested very well since receiving the Melatonin. She has been up to use the BSC a couple of times with standby assist. Continues to wear the oxygen at 1L NC for comfort . LS clear t/o. Denies any SOA or CP. Remains in NSR with inverted t waves on telemetry. VSS. R Fem Cath site shows no signs of hematoma or bleeding. Dressing to coccyx remains intact. Family has remained at bedside this shift. Call light in reach, bed in low position. No acute changes or complaints, will continue to monitor.
--- NOTE | 2022-12-25 04:57 | PC.NURSE ---
PRN breating tx given per jan at 0451. Pt reports this has slightly helped. O2 saturations remain in the high 90's, no changes on telemetry. Reports no chest pain. Still appears slightly anxious. No other complaints noted, will continue to monitor closely.
--- NOTE | 2022-12-25 05:12 | PC.NURSE ---
Rechecked patient at this time, she was asleep upon entering the room. She reports she feels a little better, SOA has improved slightly. Pt noted to have less labored breathing. No changes to LS at this time, continues to deny chest pain. No changes on telemetry. HR 60-70's at this time. Will continue to monitor.
[2022-12-25 06:46] LABS: Chloride 117 mmol/L (98-107); Sodium 141 mmol/L (136-145)
[2022-12-25 06:47] LABS: Potassium 3.7 mmoL/L (3.5-5.1)
[2022-12-25 06:49] LABS: Alanine Aminotransferase 14 U/L (12-78); Anion Gap 4.7 mEq/L (5-15); Aspartate Amino Transferase 47 U/L (14-36); Blood Urea Nitrogen 12 mg/dl (7-17); Carbon Dioxide 23 mmol/L (22.0-30.0); Creatinine Clearance Estimated 39 mL/min (50-200); Estimated Glomerular Filt Rate 61 ml/min (>60); GFR (African American) 74 ML/MIN (>60)
[2022-12-25 06:50] LABS: Albumin Level 2.8 g/dl (3.5-5.0); Albumin/Globulin Ratio 0.9 (1.1-1.8); Alkaline Phosphatase 66 U/L (38-126); Bilirubin,Total 0.3 mg/dl (0.2-1.3); Calcium 7.6 mg/dl (8.4-10.2); Globulin 3.1 g/dL (1.3-3.2); Glucose 86 mg/dl (74-100); Total Protein,Serum 5.9 g/dl (6.3-8.2)
[2022-12-25 07:06] LABS: Basophils % 0.7 % (0.1-2.0); Eosinophils # 0.2 K/mm3 (0.0-0.4); Eosinophils % 3.4 % (0.1-12.0); Hematocrit 35.5 % (37.0-47.0); Hemoglobin 10.9 g/dL (12.2-16.2); Lymphocytes % 20.3 % (10-50); Mean Corpuscular HGB Conc 30.8 g/dL (31.8-35.4); Mean Corpuscular Hemoglobin 27.7 pg (27.0-31.2); Mean Platelet Volume 8.5 fl (7.4-10.4); Monocytes # 0.4 K/mm3 (0.1-1.0); Monocytes % 8.2 % (1.7-9.3); Neutrophils # 3.3 K/mm3 (1.8-7.8); Neutrophils % 67.5 % (37.0-80.0); Platelet Count 189 K/mm3 (142-424); Red Blood Count 3.94 M/mm3 (4.20-5.40); Red Cell Distribution Width 17.2 % (11.5-17.5); White Blood Count 4.9 K/mm3 (4.8-10.8)
--- NOTE | 2022-12-25 08:59 | EXP.CARD.PN ---
Subjective Subjective Date: 12/25/22 Time: 08:59 Principal diagnosis: Inferior STEMI Interval history: 72-year-old white female in bed in no acute distress. Complains of some gasping type shortness of breath at times but with vital signs noting 100% oxygen saturation on low-dose nasal cannula oxygen. Patient does have significant anxiety which may be playing into her symptoms. She does have some abdominal discomfort after eating. Review of her CT scan from yesterday shows abdominal and thoracic aortic aneurysm to be about 6.6 cm which clinically seems stable compared to [facility] reading in September of last year. She has occluded left renal artery but with 2 arteries to the right kidney. Aneurysm is comprised of a large amount of mural thrombus. No evidence of dissection noted. 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 This may be contributing to her abdominal pain and weight loss of 20 to 30 pounds over the last year. Will defer further treatment to vascular surgery. Exam Data for Last 24 hours Vital signs and Labs for Last 24 Hours: Temp Pulse Resp BP Pulse Ox 97.7 F 81 20 157/85 H 98 12/25/22 08:00 12/25/22 08:00 12/25/22 08:00 12/25/22 08:00 12/25/22 08:00 Laboratory Results - last 24 hr 12/25/22 05:39: WBC 4.9, RBC 3.94 L, Hgb 10.9 L, Hct 35.5 L, MCV 90.0, MCH 27.7, MCHC 30.8 L, RDW 17.2, Plt Count 189, MPV 8.5, Neut % (Auto) 67.5, Lymph % (Auto) 20.3, [place] % (Auto) 8.2, Eos % (Auto) 3.4, Baso % (Auto) 0.7, Neut # (Auto) 3.3, Lymph # (Auto) 1.0, [place] # (Auto) 0.4, Eos # (Auto) 0.2, Baso # (Auto) 0.0 12/25/22 05:39: Sodium 141, Potassium 3.7, Chloride 117 H, Carbon Dioxide 23, Anion Gap 4.7 L, BUN 12, Creatinine 0.90, Estimated Creat Clear 39, Estimated GFR 61, Est GFR ( Amer) 74, Glucose 86, Calcium 7.6 L, Magnesium 2.0, Total Bilirubin 0.3, AST 47 H D, ALT 14, Alkaline Phosphatase 66, Total Protein 5.9 L, Albumin 2.8 L, Globulin 3.1, Albumin/Globulin Ratio 0.9 L I & O for Last 24 hours: Intake & Output 12/22/22 12/23/22 12/24/22 12/25/22 11:59 11:59 11:59 11:59 Intake Total 547 / 547 1904 / 1904 1901 / 1901 Output Total 1725 / 1725 1000 / 1000 400 / 400 Balance -1178 / -1178 904 / 904 1501 / 1501 Weight 89 lb 15.883 oz 99 lb 3.328 oz 110 lb 5 oz Constitutional Constitutional: no acute distress *Routine Respiratory Exam Respiratory: Present diminished air movement; Absent rhonchi or wheezes *Routine Cardiovascular Exam Cardiovascular: Present RRR *Routine Extremities Exam Extremities: Absent cyanosis, clubbing or edema *Routine Neurological Exam Neurological: Present alert, oriented X3 and CN II-XII intact Progress Note: A&P Assessment and plan (1) ST elevation (STEMI) myocardial infarction: Status: Acute (2) СВЕТЛАНА (acute kidney injury): Status: Acute (3) Hypertension: Status: Acute (4) Thoracic aortic aneurysm (TAA): Status: Acute Assessment and Plan Assessment and Plan for All Diagnoses:: 1.? Inferior STEMI, status post angioplasty and drug-eluting stent placement to RCA.? Continue aspirin. We will switch Brilinta to Plavix due to complaint of shortness of breath..? Echocardiogram shows EF 45% with Mild hypokinesis involving the basal septum and inferior wall. Thickened and calcified aortic valve without evidence of aortic stenosis. Trace aortic insufficiency, mild MR and TR noted. 2.? Hypertension, improving control on increasing beta-jorge and ARB therapy 3.? Hyperlipidemia, continue atorvastatin therapy 4.? TAA/AAA with records from [facility] showing size at 6-6.[address] of the abdomen this admission. 5.? Mild anemia, stable at 11. 6. Ischemic cardiomyopathy with EF 45%. Continue irbesartan and metoprolol therapy. No diuretics at this time due to no clinical evidence of CHF. Patient is stable from a cardiac standpoint for discharge home. Home medication recommendations Atorvastatin 40 mg daily Aspirin 81 mg daily Clopidogrel 75 mg daily Irbesar
--- NOTE | 2022-12-25 11:09 | DIET.NUTRFU ---
Reviewed with provider and based on low BMI, lack of appetite and PMH of wt lost she triggers for severe PCM. She tried boost clear today and disliked, we reviewed other supplements yesterday and she dislikes most milk based ones reports they taste chalky. Willing to try homemade chocolate high protein shake with lunch and dinner. She also likes her potato chips, changed her diet to regular. The amount of food she is consuming she still would probably not exceed 2000mg/day of sodium. Her goal is wt gain prior to sx.
--- NOTE | 2022-12-25 11:13 | EXP.DC.SUM ---
General Admission date:: 12/23/22 Discharge date: 12/25/22 HPI HPI HPI: This is a 72-year-old female with a past medical history of CVA, hypertension, TAA who presents to the emergency department today with complaints of weakness and chest pain. Family bedside reports that after dinner she became weak and sick feeling. She describes some chest pain. upon EMSs arrival she was noted to have ST elevation on her EKG. patient arrived here with an acute STEMI. Patient taken to the [facility] upon arrival. According to son and daughter, patient has been evaluated recently for thoracic aneurysm at and it is reported that they would like to do surgery once she is strong enough to withstand surgery. On my assessment patient does not complain of any ripping or tearing sensation in her back or chest. Vital signs have been stable prior to [facility]. Patient underwent successful PCI for 100% RCA with stend placement. Post label folder, patient was hypertensive upwards 200 systolic. After consult with Cardiology, she was placed on Nitro gtt for hypertensive management. She is admited to the hospitalist service for further evaluation and management. Hospital Course Hospital Course Hospital Course: Patient presented with STEMI.? Hemodynamically stable overnight.? Further evaluation of her aortic aneurysm today with imaging.? Cardiology consulted, appreciate their recommendations.? Patient remains chest pain-free.? Addressing her blood pressure today as well.? Problems addressed as follows: STEMI CAD Essential hypertension Ischemic cardiomyopathy Hyperlipidemia Admitted for STEMI. Underwent successful PCI with drug-eluting stents to the 100% occluded RCA. Plan to continue dual antiplatelet therapy with aspirin and Plavix due to shortness of breath attributed to Brilinta and anxiety. Echocardiogram obtained showing ejection fraction of 45% with mild hypokinesis involving basal septum and inferior wall. Thickened and calcified aortic valve without evidence of aortic stenosis. Continue to aggressively address hypertension with irbesartan 150 mg daily and metoprolol extended release 50 mg daily. Continue risk modification with high intensity statin 40 mg Lipitor daily. Thoracic aortic aneurysm/abdominal aortic aneurysm Previously noted on chart review. Records from obtained showing size of 6 to 6.[address] of abdomen obtained on 12/25/2022. Images have been power shared to for viewing at her follow-up with vascular surgery. Recommended she have close follow-up with her vascular surgeon in the next 1 to 2 weeks given concern for severity of size and further discussion for need of intervention. Patient has been having a difficult time gaining weight. At this time has severe protein calorie malnutrition. Concerned this may be related to her other peripheral artery involvement with significant peripheral artery disease and mesenteric artery narrowing. Recommend boost/protein supplement with every meal. Homemade milkshakes for increased caloric intake. Attempting to address blood pressure control. Goal less than 130/80 at a minimum. Adjustments to blood pressure medications as documented with increase and irbesartan 250 mg daily and metoprolol 50 mg daily. Close follow-up with cardiology to make further adjustments for aggressive control blood pressure to decrease stress on AAA. Exam Data for Last 24 hours Vital signs and Labs for Last 24 Hours: Temp Pulse Resp BP Pulse Ox 97.7 F 81 20 157/85 H 98 12/25/22 08:00 12/25/22 08:00 12/25/22 08:00 12/25/22 08:00 12/25/22 08:00 Laboratory Results - last 24 hr 12/25/22 05:39: WBC 4.9, RBC 3.94 L, Hgb 10.9 L, Hct 35.5 L, MCV 90.0, MCH 27.7, MCHC 30.8 L, RDW 17.2, Plt Count 189, MPV 8.5, Neut % (Auto) 67.5, Lymph % (Auto) 20.3, [place] % (Auto) 8.2, Eos % (Auto) 3.4, Baso % (Auto) 0.7, Neut # (Auto) 3.3, Lymph # (Auto) 1.0, [place] # (Auto) 0.4, Eos # (Auto) 0.2, Baso # (Auto) 0.0 02/
--- NOTE | 2022-12-25 11:33 | SW/DCPLANNER ---
Addendum entered by Marj Helm RN 12/25/22 15:11: Clinical/order faxed to [facility]. Per Brynn (@ [facility]), services will begin on . Original Note: I spoke with this patient regarding plans once medically stable for discharge. MD has requested that patient discharge home with home health services. Patient is agreeable to discharge home with [facility]. Patient information/order will be faxed to [facility] once order is completed. Patient will discharge home later today. PT/OT will evaluate prior to discharge.
--- NOTE | 2022-12-25 13:51 | HMH.PTEV ---
Physical Therapy Evaluation Rehab PT IP Evaluation Start: 12/25/22 11:29 Freq: ONCE Status: Active Protocol: Document 12/25/22 13:48 [id number] (Rec: 12/25/22 13:51 PHOHILDA [id number]) Subjective/History History History 72 yowf adm to [facility] with STEMI. She reports she lives alone, but has family nearby to help if she needs assistance. She is generally independent with all mobility and has a cane and a walker at home. Subjective Subjective Pt reports feeling weak, but much better overall. Rehab PT IP Eval Objective Appearance Patient Behavior Appropriate Patient Orientation Person,Place,Time Difficulty following instructions none Speech Pattern Clear Ambulation Patient Able to Ambulate Yes Ambulation Observation IP General Gait Pattern Observation Wide Based Gait Ambulation Distance (feet) 75 Ambulation Assistive Device None Ambulation Ability Supervision/Stand by Balance Ability to Arise Able, uses arms to help Sitting Balance Steady, safe Standing Balance Steady, wide stance Dynamic Sitting Balance Ability Good Dynamic Standing Balance Ability Good Transfers Bed Transfer Ability Supervision/Stand by Chair Transfer Ability Supervision/Stand by Sit to Stand Bed Transfer Ability Supervision/Stand by Sit to Stand Chair Transfer Ability Supervision/Stand by ROM All Extremities PT ROM Status WFL MMT All Extremities PT MMT WFL Rehab PT IP prob,goals,plan Problems Date of Evaluation: 12/25/22 Discharge Plan PT Discharge Plan Pt is appropriate to return home once medically stable for d/c. Recommend home health therapy upon d/c. G -code Required No Eval Complexity Eval Charge Codes 35337 - Moderate Complexity PHYSICIAN CERTIFICATION: I certify the specified therapy services for Myriam Wiley are required, authorized, and reviewed every 30 days.
--- NOTE | 2022-12-25 14:27 | HMH.PHAINT1 ---
Pharmacy Intervention Comments: Discussed discharge medications with patient and patient's daughter. Both verbalized understanding and had no questions at this time.
--- NOTE | 2022-12-26 10:43 | CARE MANAGER ---
Spoke with patient for post-discharge phone interview, no issues noted.
== END 2022-12-25 15:25 | disposition home health service (06) | DRG 246 ==
LOC: ER 12-23 00:21 → 2ND 12-23 00:44
PROVIDERS: Internal Medicine Cardiovascular Disease; Nurse Practitioner Acute Care; Admitting Provider Internal Medicine Adolescent Medicine; Emergency Provider Emergency Medicine; PCP Family Medicine; Visit Provider Internal Medicine Adolescent Medicine
DX: I21.19 ST elevation (STEMI) myocardial infarction involving other coronary artery of inferior wall (principal); E43 Unspecified severe protein-calorie malnutrition; N17.9 Acute kidney failure, unspecified; Z68.1 Body mass index [BMI] 19.9 or less, adult; I69.353 Hemiplegia and hemiparesis following cerebral infarction affecting right non-dominant side; I25.10 Atherosclerotic heart disease of native coronary artery without angina pectoris; I10 Essential (primary) hypertension; I16.0 Hypertensive urgency; I71.20 Thoracic aortic aneurysm, without rupture, unspecified; E78.5 Hyperlipidemia, unspecified; Z79.899 Other long term (current) drug therapy; I25.5 Ischemic cardiomyopathy; I71.40 Abdominal aortic aneurysm, without rupture, unspecified; I73.9 Peripheral vascular disease, unspecified; Z95.5 Presence of coronary angioplasty implant and graft; Z96.641 Presence of right artificial hip joint; D64.9 Anemia, unspecified
CPT/HCPCS: 36415; 71045; 74174; 75710; 80048; 80053; 80061; 81001; 83735; 84484; 85025; 85347; 92941; 93005; 93306; 93458; 97162; 99152; 99153; 99285; C1725; C1760; C1769; C1874; C1876; C1894; C9606; C9803; J1644; J3475; Q9967; U0003; U0005

== ENCOUNTER 2022-12-26 21:36 | Emergency (ER) | payer MEDICARE, OTHER, SELFPAY ==
[2022-12-26 21:36] VITALS: BP 172/105; PULSE 69; RESP 18; TEMP 36.6; O2SAT 98; BMI 18.3
--- NOTE | 2022-12-26 21:36 | ECG_ITS ---
APPROVED REPORT Exam: Resting ECG HR:74 bpm ECG Measurements Heart Rate 74 AXES CO 177 P 63 QRSd 84 QRS 34 QT 377 T -48 QTc 404 Conclusion SINUS RHYTHM MODERATE T-WAVE ABNORMALITY, CONSIDER INFERIOR ISCHEMIA [-0.1+ mV T-WAVE IN II/aVF] ABNORMAL ECG UNCONFIRMED REPORT Electronically signed by : Rush Link MD 12/27/2022 19:34:36
--- NOTE | 2022-12-26 21:39 | CT_ITS ---
PROCEDURE INFORMATION: Exam: CTA Chest With Contrast Exam date and time: 12/26/2022 10:31 PM Age: 72 years old Clinical indication: Sternal or substernal pain; Prior surgery; Surgery date: 3-7 days post-operative; Surgery type: Stents; Additional info: Chest pain TECHNIQUE: Imaging protocol: Computed tomographic angiography of the chest with contrast. 3D rendering (Not supervised by radiologist): MIP and/or 3D reconstructed images were created by the technologist. Radiation optimization: All CT scans at this facility use at least one of these dose optimization techniques: automated exposure control; mA and/or kV adjustment per patient size (includes targeted exams where dose is matched to clinical indication); or iterative reconstruction. Contrast material: ISOVUE; Contrast volume: 100 ml; Contrast route: INTRAVENOUS (IV); REPORTING DATA: Count of CT and Cardiac NM exams in prior 12 months: This patient has received 2 known CTs and 0 known cardiac nuclear medicine studies in the 12 months prior to the current study. COMPARISON: CR XR CHEST PORTABLE 12/23/2022 3:46 AM FINDINGS: Pulmonary arteries: Normal. No pulmonary emboli. Aorta: Aortic diameter 6 cm. There is draping of the aorta over the vertebral body and focal left paravertebral aortic rupture axial image 5/118. The aneurysm continues to the level of the aortic bifurcation. There is mild dilation of the ascending aorta. The aorta demonstrates moderate atherosclerotic calcification. Celiac trunk and mesenteric arteries: Upper abdominal aortic aneurysm originating at the aortic hiatus and involving the celiac and SMA origins as well as renal artery origins. The superior inferior measurement of the aortic aneurysm is 12.6 cm series 1001/30 Lungs: Pulmonary vessels appear normal. Moderate centrilobular emphysema. Pleural spaces: Unremarkable. No pneumothorax. No pleural effusion. Heart: Mild cardiomegaly. Coronary arteries: Severe coronary artery calcifications. Lymph nodes: Unremarkable. No enlarged lymph nodes. Kidneys and ureters: Severely atrophic left kidney. Left renal artery is not apparent. Stomach and bowel: Multifocal small bowel wall thickening. Ischemia not excluded. Scattered colonic diverticula. Bones/joints: Right hip arthroplasty. Soft tissues: See Aorta finding. Other findings: There is extensive mural thrombus. There is focal discontinuity of intimal calcification. There is tangential intimal calcification image 5/114; Small crescent of enhancement within the mural thrombus. Severe calcific atherosclerosis of the common and external iliac vessels. Small effusions. IMPRESSION: 1. Upper abdominal aortic aneurysm originating at the aortic hiatus and involving the celiac and SMA origins as well as renal artery origins. The superior inferior measurement of the aortic aneurysm is 12.6 cm series 1001/30 2. Aortic diameter 6 cm. 3. There is extensive mural thrombus. 4. There is focal discontinuity of intimal calcification. This can be a sign of rupture/impending rupture. 5. There is tangential intimal calcification image 5/114 .This can be a sign of rupture/impending rupture. 6. Small crescent of enhancement within the mural thrombus. 7. There is draping of the aorta over the vertebral body and focal left paravertebral aortic rupture axial image 5/118. 8. The aneurysm continues to the level of the aortic bifurcation. 9. Severe calcific atherosclerosis of the common and external iliac vessels. 10. Multifocal small bowel wall thickening. Ischemia not excluded. 11. Severely atrophic left kidney. Left renal artery is not apparent. 12. T
--- NOTE | 2022-12-26 21:39 | CT_ITS ---
PROCEDURE INFORMATION: Exam: CTA Abdomen and Pelvis With Contrast Exam date and time: 12/26/2022 10:31 PM Age: 72 years old Clinical indication: Abdominal pain; Generalized; Prior surgery; Surgery date: 3-7 days post-operative; Surgery type: Heart cath with stents TECHNIQUE: Imaging protocol: Computed tomographic angiography of the abdomen and pelvis with contrast. 3D rendering (Not supervised by radiologist): MIP and/or 3D reconstructed images were created by the technologist. Radiation optimization: All CT scans at this facility use at least one of these dose optimization techniques: automated exposure control; mA and/or kV adjustment per patient size (includes targeted exams where dose is matched to clinical indication); or iterative reconstruction. Contrast material: ISOVUE; Contrast volume: 100 ml; Contrast route: INTRAVENOUS (IV); REPORTING DATA: Count of CT and Cardiac NM exams in prior 12 months: This patient has received 2 known CTs and 0 known cardiac nuclear medicine studies in the 12 months prior to the current study. COMPARISON: CT ANGIO ABDOMEN PELVIS 12/24/2022 1:02 PM FINDINGS: Lungs: Pulmonary vessels appear normal. Moderate centrilobular emphysema. Heart: Mild cardiomegaly. Coronary arteries: Severe coronary artery calcifications. Aorta: Aortic diameter 6 cm. There is draping of the aorta over the vertebral body and focal left paravertebral aortic rupture axial image 5/118. . The aneurysm continues to the level of the aortic bifurcation. 12. There is mild dilation of the ascending aorta. The aorta demonstrates moderate atherosclerotic calcification. Celiac trunk and mesenteric arteries: Upper abdominal aortic aneurysm originating at the aortic hiatus and involving the celiac and SMA origins as well as renal artery origins. The superior inferior measurement of the aortic aneurysm is 12.6 cm series 1001/30 Renal arteries: See Celiac trunk and mesenteric arteries finding. Right iliac arteries: No occlusion or significant stenosis. Left iliac arteries: No occlusion or significant stenosis. Liver: No mass. Gallbladder and bile ducts: Unremarkable. No calcified stones. No ductal dilation. Pancreas: Unremarkable. No mass. No ductal dilation. Spleen: Unremarkable. No splenomegaly. Adrenal glands: Unremarkable. No mass. Kidneys and ureters: Severely atrophic left kidney. Left renal artery is not apparent. Stomach and bowel: . Multifocal small bowel wall thickening. Ischemia not excluded. 19. Scattered colonic diverticula Appendix: No evidence of appendicitis. Intraperitoneal space: Unremarkable. No free air. No significant fluid collection. Lymph nodes: Unremarkable. No enlarged lymph nodes. Urinary bladder: Unremarkable. No mass. Reproductive: Unremarkable as visualized. Bones/joints: Right hip arthroplasty. Soft tissues: See Aorta finding. Other findings: . There is extensive mural thrombus. There is focal discontinuity of intimal calcification. This can be a sign of rupture/impending rupture. There is tangential intimal calcification image 5/114 .This can be a sign of rupture/impending rupture. Small crescent of enhancement within the mural thrombus. Severe calcific atherosclerosis of the common and external iliac vessels. . Small effusions. IMPRESSION: 1. Upper abdominal aortic aneurysm originating at the aortic hiatus and involving the celiac and SMA origins as well as renal artery origins. The superior inferior measurement of the aortic aneurysm is 12.6 cm 2. Aortic diameter 6 cm. 3. There is extensive mural thrombus. 4. There is focal discontinuity of intimal calcification. This can
[2022-12-26 22:00] VITALS: BP 117/63; PULSE 65; RESP 17; O2SAT 98
[2022-12-26 22:06] LABS: Chloride 114 mmol/L (98-107); Potassium 3.9 mmoL/L (3.5-5.1); Sodium 142 mmol/L (136-145)
[2022-12-26 22:08] LABS: Alanine Aminotransferase 19 U/L (12-78); Alkaline Phosphatase 83 U/L (38-126); Aspartate Amino Transferase 41 U/L (14-36); Bilirubin,Total 0.5 mg/dl (0.2-1.3); Blood Urea Nitrogen 15 mg/dl (7-17); Creatinine Clearance Estimated 32 mL/min (50-200); Estimated Glomerular Filt Rate 49 ml/min (>60); GFR (African American) 59 ML/MIN (>60)
[2022-12-26 22:09] LABS: Albumin Level 3.8 g/dl (3.5-5.0); Calcium 8.6 mg/dl (8.4-10.2); Carbon Dioxide 23 mmol/L (22.0-30.0); Glucose 107 mg/dl (74-100); Lipase 514 U/L (23-300); Total Protein,Serum 7.8 g/dl (6.3-8.2)
[2022-12-26 22:13] LABS: Basophils # 0.1 K/mm3 (0-0.2); Basophils % 1.4 % (0.1-2.0); Eosinophils # 0.3 K/mm3 (0.0-0.4); Eosinophils % 3.9 % (0.1-12.0); Hematocrit 40.3 % (37.0-47.0); Hemoglobin 12.6 g/dL (12.2-16.2); Lymphocytes # 1.5 K/mm3 (0.7-4.5); Lymphocytes % 22.6 % (10-50); Mean Corpuscular HGB Conc 31.2 g/dL (31.8-35.4); Mean Corpuscular Hemoglobin 28.1 pg (27.0-31.2); Mean Corpuscular Volume 90.1 fl (81-99); Mean Platelet Volume 8.9 fl (7.4-10.4); Monocytes # 0.5 K/mm3 (0.1-1.0); Monocytes % 6.9 % (1.7-9.3); Neutrophils # 4.3 K/mm3 (1.8-7.8); Neutrophils % 65.3 % (37.0-80.0); Platelet Count 285 K/mm3 (142-424); Red Blood Count 4.47 M/mm3 (4.20-5.40); Red Cell Distribution Width 17.2 % (11.5-17.5); White Blood Count 6.6 K/mm3 (4.8-10.8)
[2022-12-26 22:19] LABS: Anion Gap 8.9 mEq/L (5-15)
[2022-12-26 22:22] LABS: NT Pro Brain Natriuretic Pep. 2910 pg/mL (0-125)
[2022-12-26 22:30] LABS: Troponin I 1.56 ng/ml (0.00-0.034)
--- NOTE | 2022-12-26 22:32 | HMH.EDGENADL ---
Discharge Plan Disposition Patient Disposition: Xfer Other Condition: Critical Prescriptions Prescriptions: No Action metoprolol succinate [Toprol XL] 50 mg tablet extended release 24 hr 50 mg PO DAILY clopidogrel 75 mg tablet 75 mg PO DAILY aspirin 81 mg tablet,delayed release (DR/EC) 81 mg PO DAILY MDD Heart alprazolam 0.25 mg tablet 0.25 mg PO HS pantoprazole 40 mg tablet,delayed release (DR/EC) 40 mg PO DAILY sertraline 25 mg tablet 25 mg PO DAILY irbesartan 150 mg tablet 150 mg PO DAILY melatonin 5 mg tablet 5 mg PO HS atorvastatin 40 mg tablet 40 mg PO DAILY donepezil 10 mg tablet 10 mg PO HS alendronate 70 mg tablet 70 mg PO FR oxcarbazepine 300 mg tablet 300 mg PO BID gabapentin 100 mg capsule 100 mg PO BID Referrals Follow up/Referrals: Rush Rodas MD [Primary Care Provider] - See instructions Clinical Impressions Clinical Impression: AAA (abdominal aortic aneurysm, ruptured) Discharge ED Provider: Dirk Kirby General Adult HPI General Chief complaint: Chest Pain Stated complaint: Chest Pain Time Seen by Provider: 12/26/22 21:40 Mode of Arrival: Wheelchair Source of Information: Patient Limitations: No Limitations Description of Symptoms (Recalled from ER Triage Doc. by RN): 72 F presents with midsternal chest pain that began a couple of hours ago after dinner. Patient reports shortness of air and weakness when this pain occurred. Patient had a STEMI with 3 stents placed this past weekend History of Present Illness HPI narrative: 72-year-old female presents with epigastric pain. She says the pain began tonight with mild shortness of breath. She recently had an inferior STEMI. No fever chills or cough. She has history of thoracic aneurysm as well. It has been stable on review. No nausea vomiting diarrhea. Pain is dull nonradiating intermittent. Related Data Home Medications Medication Instructions Recorded Confirmed alendronate 70 mg tablet 70 mg PO FR Osteoporosis 12/23/22 12/26/22 atorvastatin 40 mg tablet 40 mg PO DAILY Cholesterol 12/23/22 12/26/22 donepezil 10 mg tablet 10 mg PO HS MEMORY 12/23/22 12/26/22 gabapentin 100 mg capsule 100 mg PO BID Pain 12/23/22 12/26/22 oxcarbazepine 300 mg tablet 300 mg PO BID NEURALGIA 12/23/22 12/26/22 alprazolam 0.25 mg tablet 0.25 mg PO HS Anxiety 12/26/22 12/26/22 aspirin 81 mg tablet,delayed 81 mg PO DAILY HEart 12/26/22 12/26/22 release clopidogrel 75 mg tablet 75 mg PO DAILY Blood thinner 12/26/22 12/26/22 irbesartan 150 mg tablet 150 mg PO DAILY Heart 12/26/22 12/26/22 melatonin 5 mg tablet 5 mg PO HS Sleep 12/26/22 12/26/22 metoprolol succinate 50 mg 50 mg PO DAILY Heart 12/26/22 12/26/22 tablet,extended release 24 hr (Toprol XL) pantoprazole 40 mg tablet,delayed 40 mg PO DAILY GERD 12/26/22 12/26/22 release sertraline 25 mg tablet 25 mg PO DAILY Mood 12/26/22 12/26/22 Allergies Allergy/AdvReac Type Severity Reaction Status Date / Time lisinopril Allergy Severe Swelling Verified 12/24/22 11:10 of Lip/Tongue/Throat bacitracin Allergy Mild Verified 12/24/22 11:10 [From Neosporin ([id number])] latex Allergy Mild Verified 12/24/22 11:10 neomycin Allergy Mild Verified 12/24/22 11:10 [From Neosporin ([id number])] polymyxin B Allergy Mild Verified 12/24/22 11:10 [From Neosporin ([id number])] Latex, Natural Rubber Allergy Verified 12/24/22 11:10 ticagrelor [From Brilinta] AdvReac Intermediate Difficulty Verified 12/24/22 11:10 Breathing PFSH PFS Disclaimer: The information contained in this section may have been updated after the patient was seen, as this information can be updated by other users. Medical History (Updated 12/26/22 @ 23:46 by Dirk Kirby MD) AAA (abdominal aortic aneurysm) Abnormal ankle brachial index (VALERY) Abnormal ankle brachial index (
--- NOTE | 2022-12-26 23:36 | PC.NURSE ---
speaking with JOSE LUIS
--- NOTE | 2022-12-26 23:39 | PC.NURSE ---
Calling [facility] for transfer for ruptured AAA
--- NOTE | 2022-12-26 23:41 | PC.NURSE ---
[facility] has been contacted
--- NOTE | 2022-12-26 23:42 | PC.NURSE ---
[facility] stated they will call back when available
[2022-12-26 23:43] VITALS: BP 137/82; PULSE 65; RESP 18; O2SAT 95
--- NOTE | 2022-12-26 23:43 | PC.NURSE ---
Lab has been called for a type and screen
[2022-12-27] VITALS: BP 141/71; PULSE 60; RESP 16; O2SAT 95
[2022-12-27 00:08] VITALS: PULSE 62
[2022-12-27 00:15] VITALS: BP 133/75; PULSE 67; RESP 14; O2SAT 94
--- NOTE | 2022-12-27 00:15 | PC.NURSE ---
on the phone with
--- NOTE | 2022-12-27 00:21 | PC.NURSE ---
Ambulance has been called for transfer
--- NOTE | 2022-12-27 00:21 | PC.NURSE ---
Spoke with Corona in lab and advised we would need 2 units of blood to go with this patient to , in the event she began to decline enroute. AnushaRN will be going with patient
--- NOTE | 2022-12-27 00:25 | PC.NURSE ---
Dr. Kirby signed emergent release for blood products
[2022-12-27 00:30] VITALS: BP 136/70; PULSE 64; RESP 17; O2SAT 95
[2022-12-27 00:34] VITALS: BP 147/71; PULSE 61; RESP 16; TEMP 36.8; O2SAT 94
--- NOTE | 2022-12-27 00:42 | PC.NURSE ---
Called ambulance to get an ETA.
[2022-12-27 00:45] VITALS: BP 153/79; PULSE 70; RESP 20; O2SAT 95
[2022-12-27 01:25] LABS: Troponin I 1.65 ng/ml (0.00-0.034)
== END 2022-12-27 01:05 | disposition other institution (70) ==
PROVIDERS: Emergency Provider Emergency Medicine; PCP Family Medicine
DX: I71.30 Abdominal aortic aneurysm, ruptured, unspecified (principal); R07.89 Other chest pain; I25.2 Old myocardial infarction; I25.10 Atherosclerotic heart disease of native coronary artery without angina pectoris; I73.9 Peripheral vascular disease, unspecified; Z86.79 Personal history of other diseases of the circulatory system; I10 Essential (primary) hypertension; Z86.73 Personal history of transient ischemic attack (TIA), and cerebral infarction without residual deficits; Z95.828 Presence of other vascular implants and grafts
CPT/HCPCS: 71275; 74174; 80053; 83690; 83880; 84484; 85025; 86850; 93005; 96374; 96375; 99291; G0390; J2405; Q9967

== ENCOUNTER → 2023-01-04 09:21 | Outpatient (CLI) | payer MEDICARE, OTHER, SELFPAY ==
--- NOTE | 2023-01-04 09:29 | XR_ITS ---
FINAL REPORT CLINICAL HISTORY: hip fracture COMPARISON: 10/04/2022 FINDINGS: AP and frog leg views of the right hip were obtained. There are postoperative changes from right hip arthroplasty. Hardware appears intact. There is no acute fracture or dislocation. Soft tissues are within normal limits. IMPRESSION: Postoperative changes with no acute bony abnormality. Reviewed, Interpreted and Dictated by Charisma Montes MD Transcribed by Deisy Woodward Authenticated and [facility]
--- NOTE | 2023-01-04 09:29 | XR_ITS ---
FINAL REPORT CLINICAL HISTORY: fracture COMPARISON: 10/04/2022 FINDINGS: PELVIS Three views were obtained. Again seen are postoperative changes from right hip arthroplasty. There is no acute fracture or dislocation. There is mild degenerative disease at the SI joints and the left hip. Soft tissue calcifications are noted and are unchanged. IMPRESSION: Number Postoperative changes with no acute bony abnormality. 2. Mild degenerative disease at the SI joints and left hip. Reviewed, Interpreted and Dictated by Charisma Montes MD Transcribed by Deisy Woodward Authenticated and [facility]
== END ==
LOC: RAD 09:24
PROVIDERS: PCP Family Medicine; Visit Provider Orthopaedic Surgery
DX: M25.551 Pain in right hip; Z96.641 Presence of right artificial hip joint
CPT/HCPCS: 72190; 73502